=== PATIENT | female | born 1980 | race Asian ===

== ENCOUNTER 2021-03-24 09:49 | Outpatient (REF) | payer OTHER, SELFPAY ==
[2021-03-24 10:15] LABS: MANUAL DIFF FLAG NO
[2021-03-24 10:21] LABS: Basophils Percent Auto 0.6 % (0-2); Eosinophils Absolute Auto 0.1 X10*3/uL (0.0-0.4); Eosinophils Percent Auto 1.2 % (0-4); Hematocrit 37.4 % (37.0-47.0); Imm Gran Abs Auto 0.01 X10*3/uL (0.00-0.03); Imm Gran Pct Auto 0.2 % (0.0-0.4); Lymphocytes Absolute Auto 1.7 X10*3/uL (1.2-4.9); Lymphocytes Percent Auto 33.8 % (20-40); Mean Corpuscular HGB Conc 32.1 g/dl (31.0-35.0); Mean Corpuscular Hemoglobin 26.2 pg (27.0-33.0); Mean Corpuscular Volume 81.7 fL (80.0-98.0); Mean Platelet Volume 9.7 fL (9.4-12.3); Monocytes Absolute Auto 0.4 X10*3/uL (0.1-1.2); Monocytes Percent Auto 8.1 % (2-11); Neutrophils Absolute Auto 2.9 x10*3/uL (2.0-8.3); Neutrophils Percent Auto 56.1 % (45-73); Platelet Count 241 X10*3/uL (160-400); Red Blood Count 4.58 X10*6/uL (4.20-5.50); Red Cell Distribution Width 13.4 % (11.0-16.0); White Blood Count 5.1 X10*3/uL (4.8-10.8)
[2021-03-24 10:50] LABS: Alanine Aminotransferase 14 U/L (0-31); Albumin Level 3.6 g/dL (3.5-5.0); Alkaline Phosphatase 44 U/L (39-117); Anion Gap 10 (12-20); Aspartate Amino Transferase 17 U/L (5-31); Bilirubin Total 0.5 mg/dL (0.0-1.0); Blood Urea Nitrogen 7 mg/dL (9-16); C Reactive Protein 0.06 mg/dL (< or = 0.50); Calcium 8.8 mg/dL (8.4-10.2); Carbon Dioxide 24 mmol/L (22-29); Chloride 109 mmol/L (96-108); Cholesterol 174 mg/dL; Estimated Glomerular Filt Rate > 60; Glucose Fasting 81 mg/dL (60-99); HDL Cholesterol 51 mg/dL; LDL Cholesterol Calculated 107 mg/dl; Potassium 3.9 mmol/L (3.3-5.1); Sodium 139 mmol/L (135-145); Total Protein 6.6 g/dL (6.5-8.0); Triglycerides 80 mg/dL
[2021-03-24 11:12] LABS: TSH reflex Free T4 0.63 uIU/mL (0.32-4.0); Vitamin D 25-OH Total 15.7 ng/mL (>30)
[2021-03-24 12:04] LABS: Erythrocyte Sedimentation Rate 7 MM/HR (0-20)
[2021-03-24 14:34] LABS: Appearance Urine CLEAR; Color Urine YELLOW; Glucose Urine UA 100 MG/DL (NEG); Leukocyte Esterase Urine NEG (NEG); Nitrite Urine NEG (NEG); PH 6.5 (5.0-8.0); Urine Blood 2+ (NEG); Urine Ketones NEG (NEG); Urine Protein TRACE MG/DL (NEG-TRACE)
[2021-03-24 14:53] LABS: Bacteria Urine 1+ /LPF; Mucus Urine 1+ /LPF; Squamous Epithelial Cell Urine 2+ /LPF
[2021-03-25 10:41] LABS: PTT (LAC) Screen 29 sec (< OR = 40)
[2021-03-28 22:02] LABS: Anti Nuclear Antibody Screen NEGATIVE (NEGATIVE)
[2021-03-29 15:36] LABS: Anti DNA DS Antibody <1 IU/mL
== END 2021-03-24 09:50 | disposition home or self-care (01) ==
LOC: HO.10HDL 09:49
PROVIDERS: Visit Provider Nurse Practitioner Family
DX: E55.9 Vitamin D deficiency, unspecified (principal); E78.00 Pure hypercholesterolemia, unspecified; I10 Essential (primary) hypertension; F32.2 Major depressive disorder, single episode, severe without psychotic features; R21 Rash and other nonspecific skin eruption; F41.9 Anxiety disorder, unspecified; Z83.3 Family history of diabetes mellitus; Z76.89 Persons encountering health services in other specified circumstances
CPT/HCPCS: 36415; 80053; 80061; 81001; 82306; 84443; 85025; 85597; 85613; 85652; 85730; 86038; 86039; 86140; 86225

== ENCOUNTER 2021-04-07 11:06 | Outpatient (REF) | payer OTHER, SELFPAY ==
[2021-04-07 12:13] LABS: Estimated Average Glucose 103 mg/dL; Hemoglobin A1c % 5.2 %
[2021-04-07 12:18] LABS: Appearance Urine HAZY; Color Urine YELLOW; Glucose Urine UA NEG (NEG); Leukocyte Esterase Urine 1+ (NEG); Nitrite Urine NEG (NEG); Specific Gravity - Urine 1.025 (1.005-1.025); Urine Blood TRACE (NEG); Urine Ketones NEG (NEG); Urine Protein NEG (NEG-TRACE)
[2021-04-07 12:21] LABS: Glucose Fasting 116 mg/dL (60-99)
[2021-04-07 12:31] LABS: Bacteria Urine 2+ /LPF; RBC Urine 0-2 /HPF (0); Squamous Epithelial Cell Urine 4+ /LPF
[2021-04-07 12:49] LABS: Vitamin D 25-OH Total 20.2 ng/mL (>30)
== END 2021-04-07 11:07 | disposition home or self-care (01) ==
LOC: HO.LAB 11:06
PROVIDERS: PCP Nurse Practitioner Family; Visit Provider Nurse Practitioner Family
DX: Z13.1 Encounter for screening for diabetes mellitus (principal); R81 Glycosuria; E55.9 Vitamin D deficiency, unspecified; F32.2 Major depressive disorder, single episode, severe without psychotic features; F41.9 Anxiety disorder, unspecified; Z76.89 Persons encountering health services in other specified circumstances; Z83.3 Family history of diabetes mellitus
CPT/HCPCS: 36415; 81001; 82306; 82947; 83036

== ENCOUNTER 2021-05-01 19:52 | Emergency (ER) | payer OTHER, SELFPAY ==
[2021-05-01 19:54] VITALS: BP 115/62; PULSE 91; RESP 16; TEMP 36.8; O2SAT 97; BMI 24.4
--- NOTE | 2021-05-01 20:23 | ED_ITS ---
HPI - Allergic Reaction General Chief complaint: Allergic Reaction Stated complaint: Hives Time Seen by Provider: 05/01/21 20:21 History of Present Illness HPI narrative: Patient complains of hives coming and going for several days, no difficulty breathing no throat swelling no difficulty swallowing, the rash is itchy no other complaint Related Data Previous Rx's Medication Instructions Recorded hydroxyzine HCl 25 mg tablet 25 mg PO Q6-8H PRN #30 tab 03/19/21 cholecalciferol (vitamin D3) 1,250 1,250 mcg PO QWEEK #12 cap 04/05/21 mcg (50,000 unit) capsule epinephrine 0.3 mg/0.3 mL 0.3 mg (0.3 mL) IM ONCE PRN #2 ea 04/28/21 injection, auto-injector (EpiPen 2-Duy) cetirizine 10 mg capsule 10 mg PO DAILY PRN #14 cap 05/01/21 diphenhydramine HCl 25 mg capsule 50 mg PO BEDTIME PRN #20 cap 05/01/21 (Benadryl) prednisone 20 mg tablet 40 mg PO DAILY 3 Days #6 tab 05/01/21 Allergies Allergy/AdvReac Type Severity Reaction Status Date / Time latex Allergy Mild Anaphylaxis Verified 05/01/21 20:01 Sulfa (Sulfonamide Allergy Mild Hives Verified 05/01/21 20:01 Antibiotics) Review of Systems Verdana 4l Review of Systems: Verdana 4d Verdana 4d Positive for hives Negatives are no fever no chills no dizziness no weakness no fainting no feeling faint no headache no neck pain no difficulty breathing or swallowing no throat swelling no chest pain no shortness of breath no joint swellingswelling Yes all other systems are reviewed and are negative PMFSH Past Medical History Source: nursing notes reviewed Social History Social History Housing: Apartment Patient Tobacco Use Status: Never used Tobacco Tobacco use type: Cigarette e-Cigarette/Vaping Use: Never Used Second Hand Smoke Exposure: No Advance Directives: No Advance Directives Information Provided: Yes Patient : No service: No Current occupational status: unemployed Physical Exam Verdana 4l Vital Signs: Verdana 4d Verdana 4d Vital Signs: Verdana 4d Verdana 4Bd Last Vital Signs Verdana 4d Crop [place] New 4d Crop [place] New 4d Temp 98.2 F 05/01/21 19:54 Crop [place] New 4d Pulse 91 05/01/21 19:54 Crop [place] New 4d Resp 16 05/01/21 19:54 BP 115/62 05/01/21 19:54 Pulse Ox 97 05/01/21 19:54 BMI result Body Mass Index 24.4 General appearance no acute distress comfortable cooperative The eyes no redness or discharge The nose not congested The pharynx no redness swelling or exudate, mucous membranes are moist, voice is normal no impairment of breathing or swallowing The neck is supple Chest clear to auscultation with full symmetric equal breath sounds Heart no murmur Extremities full range of motion x4 The skin there is diffuse mild urticarial rash Discharge Plan Discharge Clinical Impression: Urticaria Patient Disposition: Home, Self-Care Additional Instructions: The rash is most likely from a sensitivity to something that we do not know We are doing a short course of steroids, and antihistamine which usually is very helpful Follow with her doctor as needed Return to the ER any time any worse condition or any concerns Prescriptions: New cetirizine 10 mg capsule 10 mg PO DAILY PRN (Reason: allergy symptoms) Qty: 14 0RF diphenhydramine HCl [Benadryl] 25 mg capsule 50 mg PO BEDTIME PRN (Reason: Hives) Qty: 20 0RF prednisone 20 mg tablet 40 mg PO DAILY 3 Days Qty: 6 0RF No Action epinephrine [EpiPen 2-Duy] 0.3 mg/0.3 mL auto-injector 0.3 mg IM ONCE PRN (Reason: anaphylaxis) Qty: 2 0RF hydroxyzine HCl 25 mg tablet 25 mg PO Q6-8H PRN (Reason: itching) Qty: 30 0RF cholecalciferol (vitamin D3) 1,250 mcg (50,000 unit) capsule 1,250 mcg PO QWEEK Qty: 12 0RF
[2021-05-01] MEDS: Loratadine 10 MG TABLET PO (20:43)
[2021-05-01] MEDS: predniSONE 20 MG TABLET 60 MG PO (20:44)
== END 2021-05-01 20:49 | disposition home or self-care (01) ==
PROVIDERS: Emergency Provider Internal Medicine
DX: L50.9 Urticaria, unspecified (principal)
CPT/HCPCS: 99283

== ENCOUNTER 2021-05-17 08:25 | Outpatient (REF) | payer OTHER, SELFPAY ==
[2021-05-17 15:45] LABS: CT PCR NOT DETECTED (Not Detect.); NG PCR NOT DETECTED (Not Detect.)
[2021-05-18 11:01] LABS: BV Int Neg Control Negative (Negative); BV Int Pos Control Positive (Positive)
[2021-05-19 20:51] LABS: HPV mRNA E6/E7 rflx Not Detected (Not Detected)
== END 2021-05-17 08:26 | disposition home or self-care (01) ==
LOC: HO.LAB 08:25
PROVIDERS: Visit Provider Advanced Practice Midwife
DX: Z01.419 Encounter for gynecological examination (general) (routine) without abnormal findings (principal); Z11.51 Encounter for screening for human papillomavirus (HPV); Z20.2 Contact with and (suspected) exposure to infections with a predominantly sexual mode of transmission; R73.9 Hyperglycemia, unspecified; Z87.42 Personal history of other diseases of the female genital tract
CPT/HCPCS: 87480; 87491; 87510; 87591; 87624; 87660; 88142; 97802

== ENCOUNTER 2021-06-03 06:45 | Outpatient (REF) | payer OTHER, SELFPAY ==
[2021-06-03 07:04] LABS: MANUAL DIFF FLAG NO
[2021-06-03 07:27] LABS: Basophils Percent Auto 0.7 % (0-2); Eosinophils Absolute Auto 0.1 X10*3/uL (0.0-0.4); Eosinophils Percent Auto 1.7 % (0-4); Hematocrit 38.9 % (37.0-47.0); Hemoglobin 12.6 g/dl (12.0-16.0); Imm Gran Abs Auto 0.02 X10*3/uL (0.00-0.03); Imm Gran Pct Auto 0.4 % (0.0-0.4); Lymphocytes Absolute Auto 1.8 X10*3/uL (1.2-4.9); Lymphocytes Percent Auto 39.5 % (20-40); Mean Corpuscular HGB Conc 32.4 g/dl (31.0-35.0); Mean Corpuscular Hemoglobin 26.1 pg (27.0-33.0); Mean Corpuscular Volume 80.7 fL (80.0-98.0); Mean Platelet Volume 10.1 fL (9.4-12.3); Monocytes Absolute Auto 0.4 X10*3/uL (0.1-1.2); Monocytes Percent Auto 8.9 % (2-11); Neutrophils Absolute Auto 2.3 x10*3/uL (2.0-8.3); Neutrophils Percent Auto 48.8 % (45-73); Platelet Count 305 X10*3/uL (160-400); Red Blood Count 4.82 X10*6/uL (4.20-5.50); Red Cell Distribution Width 13.5 % (11.0-16.0); White Blood Count 4.6 X10*3/uL (4.8-10.8)
[2021-06-03 07:51] LABS: Anion Gap 11 (12-20); Blood Urea Nitrogen 11 mg/dL (9-16); C Reactive Protein 0.04 mg/dL (< or = 0.50); Calcium 8.9 mg/dL (8.4-10.2); Carbon Dioxide 26 mmol/L (22-29); Chloride 106 mmol/L (96-108); Estimated Glomerular Filt Rate > 60; Glucose Random 99 mg/dL (60-115); Potassium 4.2 mmol/L (3.3-5.1); Sodium 139 mmol/L (135-145)
[2021-06-03 08:13] LABS: ~Hepatitis C Antibody Nonreactive (Nonreactive)
[2021-06-03 08:17] LABS: Appearance Urine CLEAR; Color Urine YELLOW; Erythrocyte Sedimentation Rate 2 MM/HR (0-20); Glucose Urine UA NEG (NEG); Leukocyte Esterase Urine NEG (NEG); Nitrite Urine NEG (NEG); Specific Gravity - Urine >= 1.030 (1.005-1.025); Urine Blood NEG (NEG); Urine Ketones NEG (NEG); Urine Protein NEG (NEG-TRACE)
[2021-06-03 08:23] LABS: HBsAGNum1 0.27 S/CO (0.00-0.99); HIV AB/AG Nonreactive (Nonreactive); HIV Num 1 0.05 S/CO (0.00-0.99); Hepatitis B Surface Antigen Negative (Negative)
[2021-06-03 08:35] LABS: Bacteria Urine TRACE /LPF; Mucus Urine 1+ /LPF; RBC Urine 0 /HPF (0); Squamous Epithelial Cell Urine 2+ /LPF
[2021-06-04 08:35] LABS: Syphilis Screen Nonreactive (Nonreactive)
[2021-06-04 19:22] LABS: Complement C3 104 mg/dL (83-193)
[2021-06-04 22:47] LABS: Anti Nuclear Antibody Screen POSITIVE (NEGATIVE)
[2021-06-05 07:17] LABS: Anti DNA DS Antibody <1 IU/mL
== END 2021-06-03 06:46 | disposition home or self-care (01) ==
LOC: HO.LAB 06:45
PROVIDERS: Absent Provider Nurse Practitioner Family; PCP Nurse Practitioner Family; Visit Provider Advanced Practice Midwife
DX: Z01.411 Encounter for gynecological examination (general) (routine) with abnormal findings (principal); Z11.4 Encounter for screening for human immunodeficiency virus [HIV]; R21 Rash and other nonspecific skin eruption; I10 Essential (primary) hypertension; L50.9 Urticaria, unspecified; Z01.419 Encounter for gynecological examination (general) (routine) without abnormal findings; Z20.2 Contact with and (suspected) exposure to infections with a predominantly sexual mode of transmission; Z87.42 Personal history of other diseases of the female genital tract
CPT/HCPCS: 36415; 80048; 81001; 85025; 85652; 86038; 86039; 86140; 86160; 86225; 86780; 86803; 87340; 87389

== ENCOUNTER → 2021-08-16 15:30 | Outpatient (REF) | payer OTHER, SELFPAY ==
--- NOTE | 2021-08-16 15:34 | ECG_ITS ---
Test Reason : CHEST PAIN Blood Pressure : / mmHG Vent. Rate : 052 BPM Atrial Rate : 052 BPM P-R Int : 168 ms QRS Dur : 070 ms QT Int : 438 ms P-R-T Axes : 037 074 042 degrees QTc Int : 407 ms Sinus bradycardia Otherwise normal ECG No previous ECGs available Referred By: Shahid Irvin Electronically Signed By:TONO PLASCENCIA
== END ==
LOC: HO.CARD 15:30
PROVIDERS: PCP Nurse Practitioner Family; Visit Provider Nurse Practitioner Family
DX: R07.89 Other chest pain (principal)
CPT/HCPCS: 93005

== ENCOUNTER 2021-11-03 09:21 | Outpatient (REF) | payer OTHER, SELFPAY ==
[2021-11-03 11:24] LABS: Folate 13.8 ng/mL (> or = 4.0); Vitamin B12 376 pg/mL (200-900)
[2021-11-03 14:12] LABS: Alanine Aminotransferase 18 U/L (0-31); Albumin Level 4.2 g/dL (3.5-5.0); Alkaline Phosphatase 49 U/L (39-117); Anion Gap 13 (12-20); Aspartate Amino Transferase 20 U/L (5-31); Bilirubin Total 0.4 mg/dL (0.0-1.0); Blood Urea Nitrogen 9 mg/dL (9-16); Carbon Dioxide 26 mmol/L (22-29); Chloride 105 mmol/L (96-108); Estimated Glomerular Filt Rate > 60; Glucose Random 86 mg/dL (60-115); Sodium 140 mmol/L (135-145); Total Protein 7.3 g/dL (6.5-8.0)
[2021-11-03 14:13] LABS: TSH reflex Free T4 0.51 uIU/mL (0.32-4.0); Vitamin D 25-OH Total 72.3 ng/mL (>30)
== END 2021-11-03 09:22 | disposition home or self-care (01) ==
LOC: HO.LAB 09:21
PROVIDERS: PCP Nurse Practitioner Family; Visit Provider Nurse Practitioner Family
DX: F41.9 Anxiety disorder, unspecified (principal); E55.9 Vitamin D deficiency, unspecified
CPT/HCPCS: 36415; 80053; 82306; 82607; 82746; 84443

== ENCOUNTER 2021-12-08 11:52 | Outpatient (REF) | payer OTHER, SELFPAY ==
[2021-12-08 13:42] LABS: MANUAL DIFF FLAG NO
[2021-12-08 13:52] LABS: Basophils Percent Auto 0.7 % (0-2); Eosinophils Absolute Auto 0.1 X10*3/uL (0.0-0.4); Eosinophils Percent Auto 1.3 % (0-4); Hemoglobin 12.8 g/dl (12.0-16.0); Imm Gran Abs Auto 0.02 X10*3/uL (0.00-0.03); Imm Gran Pct Auto 0.3 % (0.0-0.4); Lymphocytes Absolute Auto 1.8 X10*3/uL (1.2-4.9); Lymphocytes Percent Auto 28.9 % (20-40); Mean Corpuscular HGB Conc 31.2 g/dl (31.0-35.0); Mean Corpuscular Hemoglobin 25.2 pg (27.0-33.0); Mean Corpuscular Volume 80.7 fL (80.0-98.0); Mean Platelet Volume 11.1 fL (9.4-12.3); Monocytes Absolute Auto 0.5 X10*3/uL (0.1-1.2); Monocytes Percent Auto 8.6 % (2-11); Neutrophils Absolute Auto 3.7 x10*3/uL (2.0-8.3); Neutrophils Percent Auto 60.2 % (45-73); Platelet Count 267 X10*3/uL (160-400); Red Blood Count 5.08 X10*6/uL (4.20-5.50); Red Cell Distribution Width 13.5 % (11.0-16.0); White Blood Count 6.1 X10*3/uL (4.8-10.8)
[2021-12-08 14:16] LABS: Alanine Aminotransferase 13 U/L (0-31); Albumin Level 4.2 g/dL (3.5-5.0); Alkaline Phosphatase 56 U/L (39-117); Anion Gap 14 (12-20); Aspartate Amino Transferase 19 U/L (5-31); Bilirubin Total 0.2 mg/dL (0.0-1.0); Blood Urea Nitrogen 7 mg/dL (9-16); C Reactive Protein 0.06 mg/dL (< or = 0.50); Calcium 9.2 mg/dL (8.4-10.2); Carbon Dioxide 27 mmol/L (22-29); Chloride 103 mmol/L (96-108); Estimated Glomerular Filt Rate > 60; Glucose Random 79 mg/dL (60-115); Potassium 3.9 mmol/L (3.3-5.1); Sodium 140 mmol/L (135-145); Total Protein 7.6 g/dL (6.5-8.0)
[2021-12-08 14:18] LABS: Creatinine Urine 21.06 mg/dL; Total Protein Urine Random < 7 mg/dL (<12)
[2021-12-08 14:35] LABS: Erythrocyte Sedimentation Rate 5 MM/HR (0-20)
[2021-12-10 04:51] LABS: Anti DNA DS Antibody <1 IU/mL; SM/Ribonucleoprotein Ab <1.0 NEG AI (<1.0 NEG); Smith Protein <1.0 NEG AI (<1.0 NEG)
== END 2021-12-08 11:53 | disposition home or self-care (01) ==
LOC: HO.10HDL 11:52
PROVIDERS: Visit Provider Internal Medicine Rheumatology
DX: R21 Rash and other nonspecific skin eruption (principal); R76.8 Other specified abnormal immunological findings in serum; M25.521 Pain in right elbow; G89.29 Other chronic pain; M25.551 Pain in right hip
CPT/HCPCS: 36415; 80053; 84156; 85025; 85652; 86140; 86225; 86235; 99202

== ENCOUNTER 2021-12-16 13:15 | Outpatient (REF) | payer OTHER, SELFPAY ==
--- NOTE | ~2021-12-16 | XR_ITS ---
EXAMINATION: XR HIP, RIGHT. XR ELBOW, RIGHT. CLINICAL INFORMATION: Right elbow and hip pain COMPARISON: None TECHNIQUE: 3 views of the right elbow. AP and frog-lateral views of the right hip. FINDINGS: Right elbow: Normal alignment. No fracture. No joint effusion. No degenerative findings. Right hip: Normal alignment. No fracture. Mild degenerative spurring along the superior acetabular rim. No significant joint space narrowing. XR/XR hip RT min 2V IMPRESSION: Right elbow: Normal. Right hip: Minimal osteoarthritis.
--- NOTE | ~2021-12-16 | XR_ITS ---
EXAMINATION: XR HIP, RIGHT. XR ELBOW, RIGHT. CLINICAL INFORMATION: Right elbow and hip pain COMPARISON: None TECHNIQUE: 3 views of the right elbow. AP and frog-lateral views of the right hip. FINDINGS: Right elbow: Normal alignment. No fracture. No joint effusion. No degenerative findings. Right hip: Normal alignment. No fracture. Mild degenerative spurring along the superior acetabular rim. No significant joint space narrowing. XR/XR elbow RT min 3V IMPRESSION: Right elbow: Normal. Right hip: Minimal osteoarthritis.
== END 2021-12-16 13:16 | disposition home or self-care (01) ==
LOC: HO.XRAY 13:15
PROVIDERS: Visit Provider Internal Medicine Rheumatology
DX: M25.521 Pain in right elbow (principal); M25.551 Pain in right hip; G89.29 Other chronic pain
CPT/HCPCS: 73080; 73502

== ENCOUNTER 2022-01-12 10:12 | Emergency (ER) | payer OTHER, SELFPAY ==
[2022-01-12 10:50] VITALS: BP 104/56; PULSE 68; RESP 16; TEMP 36.1; O2SAT 99; BMI 24.4
--- NOTE | 2022-01-12 10:56 | ED.EAR ---
HPI - Ear Problem General Chief complaint: Ear Problems Stated complaint: cant hear out of L ear Time Seen by Provider: 01/12/22 10:55 Source: patient Mode of arrival: ambulatory Limitations: no limitations History of Present Illness HPI Narrative: 41 yo female with history of bipolar disorder, anxiety, depression, polyarthralgia history of cerumen impaction in the past who presents to the ER for evaluation of left-sided hearing loss, worsening over the last 2 months. She has had cerumen impaction that required irrigation and curette before. She has an appointment with ear nose and throat doctor but not until April. She states she cannot hear anything on the left ear. She denies any tinnitus or drainage. She is starting to have a headache on the left side due to pressure in the ear. She denies any hearing loss or drainage from the right ear. MD Complaint: ear pain and decreased hearing Location: left ear Duration: constant Severity: moderate Relieving factors: nothing Exacerbating factors: nothing Discharge from ear: no Associated symptoms ear: decreased hearing and headache Treatment prior to arrival: none Related Data Home Medications Medication Instructions Recorded Confirmed triamcinolone acetonide 0.1 % 1 appl topical DAILY 05/17/21 12/23/21 lotion ergocalciferol (vitamin D2) 1,250 1,250 mcg PO QWEEK 08/16/21 12/23/21 mcg (50,000 unit) capsule Previous Rx's Medication Instructions Recorded epinephrine 0.3 mg/0.3 mL 0.3 mg (0.3 mL) IM ONCE PRN 04/28/21 injection, auto-injector (EpiPen anaphylaxis #2 ea 2-Duy) metronidazole 0.75 % (37.5 mg/5 1 appful vaginal BEDTIME 5 days 05/18/21 gram) vaginal gel (Metrogel #70 grams Vaginal) escitalopram oxalate 5 mg tablet 5 mg PO DAILY #90 tabs 12/30/21 Allergies Allergy/AdvReac Type Severity Reaction Status Date / Time latex Allergy Mild Anaphylaxis Verified 12/23/21 14:54 Sulfa (Sulfonamide Allergy Mild Hives Verified 12/23/21 14:54 Antibiotics) Review of Systems Review of Systems: Constitutional: No Fever, No Chills ENT/Mouth: No sore throat, No Rhinorrhea, No Swallowing Difficulty, +Otalgia, +hearing loss Eyes: No Eye Pain, No Swelling, No Redness Cardiovascular: No Chest Pain, No SOB Respiratory: No Cough, No Sputum Gastrointestinal: No Nausea, No Vomiting Musculoskeletal: No joint pain, No Myalgias Skin: No Skin Lesions, No rash Neuro: No Dizziness, + Headache Heme/Lymph: No Lymphadenopathy PMFSH Past Medical History Medical History Depression Vitamin A deficiency Social History Social History Housing: Apartment Patient Tobacco Use Status: Never used Tobacco Tobacco use type: Cigarette e-Cigarette/Vaping Use: Never Used Second Hand Smoke Exposure: No Advance Directives: No Advance Directives Information Provided: No service: No Current occupational status: unemployed Cognitive needs: No Hearing needs: No Vision needs: Yes Physical Exam Vital Signs: Vital Signs: Last Vital Signs Temp 97 F 01/12/22 10:50 Pulse 68 01/12/22 10:50 Resp 16 01/12/22 10:50 BP 104/56 L 01/12/22 10:50 Pulse Ox 99 01/12/22 10:50 O2 Del Method 01/12/22 10:50 BMI result Body Mass Index 24.4 Appearance: Alert. Oriented X3. No acute distress. HEENT: normal external inspection. Bilateral external auditory canals are impacted with hard, dark cerumen. Positive hearing loss on the left side. No drainage. No mastoid tenderness bilaterally. CVS: Normal heart rate and rhythm. Pulses normal. Respiratory: No respiratory distress. Skin: Skin warm and dry. Normal skin color. Normal skin turgor. No rashes. Extremities: Normal inspection x4, normal range of motion. Neuro: Oriented X 3. No motor deficit. No sensory deficit. Course Course Course Narrative: 41-year-old female presents to the ER for evaluation of left-sided hearing loss and headache. Found to have bilateral cerumen impaction left greater than right. See procedure note. With Colace drops, irrigation and curette, cerumen was able to be successfully extracted. Tympanic membranes without infection after cerumen was cleared. She is stable for discharge. She has been wound ENT in a couple months. Stable for DC. Procedures Ear Wax Removal Both Ears: Cerumenolytic Used: Colace Results: Re-examined: cerumen removed completely TM Examination: TM(s) intact, normal appearance Ear Canal Exam: atraumatic Patient Tolerated Procedure: well and no complications Complications: no problems Technique: ear canal irrigated and ear canal curetted Discharge Plan Discharge Clinical Impression: Bilateral impacted cerumen Patient Disposition: Home, Self-Care Instructions: Carbamide Peroxide (Into the ear) Additional Instructions: Recommend Debrox drops in your ears, this could be found [id number]. Follow-up with your doctor as needed. Follow-up with the ear nose and throat doctor as scheduled in April. If you develop new or worsening symptoms call 911 or come back to the ER for further evaluation. Prescriptions: No Action epinephrine [EpiPen 2-Duy] 0.3 mg/0.3 mL auto-injector 0.3 mg IM ONCE PRN (Reason: anaphylaxis) Qty: 2 0RF metronidazole [Metrogel Vaginal] 0.75 % gel 1 appful vaginal BEDTIME 5 Days Qty: 70 0RF escitalopram oxalate 5 mg tablet 5 mg PO DAILY Qty: 90 0RF ergocalciferol (vitamin D2) 1,250 mcg (50,000 unit) capsule 1,250 mcg PO QWEEK triamcinolone acetonide 0.1 % lotion 1 appl topical DAILY Interventions: ED Discharge Assessment Last Done: 01/12/22 13:20
[2022-01-12] MEDS: Docusate Sodium 100 MG/10 ML LIQUID PO (11:17)
== END 2022-01-12 13:21 | disposition home or self-care (01) ==
PROVIDERS: Emergency Provider Emergency Medicine; PCP Nurse Practitioner Family
DX: H61.23 Impacted cerumen, bilateral (principal); R51.9 Headache, unspecified
CPT/HCPCS: 69209; 99283

== ENCOUNTER 2022-02-15 09:00 | Outpatient (RCR) | payer OTHER, SELFPAY ==
--- NOTE | 2022-01-21 10:12 | MHC.PT.EP ---
[facility] [place] Office [place] Office [place] Office [address] [phone] F: [phone] F: [phone] F: [phone] F: [phone] Physical Therapy Plan of Care Date of Evaluation: Date of Surgery: NA Diagnosis: R HIP ARTHRITIS Assessment: Pt IS 41 YO F REFERRED TO PT FROM [facility] WITH R HIP PAIN. FOUND TO HAVE MINIMAL ARTHRITIS ON XRAY. ALSO RECENTLY DIAGNOSED WITH LUPUS. PRESENTS TO PT WITH SLIGHT DECREASE IN END ROM/FLEXIBILITY IN HIP WITH GOOD OVERALL HIP STRENGTH. 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 OF NOTE, Pt C/O R UE ISSUES AND L FOOT/ANKLE INJURY WHILE SURFING. ED TO SPEAK WITH PCP RE THESE ISSUES HER REFERRAL AT THIS TIME IS ONLY FOR R HIP. SHOULD BENEFIT FROM SHORT TERM PT FOR STRETCH/STRENGTHEN HIPS/CORE AND ASSESS PELVIS Frequency and Duration: The patient will be seen 2X/WK X 4 WKS Short Term Goals: 1. I HEP WITH DC EX PLAN 2. INCREASED AWARENESS HIP CARE/POSTURE Long-Term Goals: 1. IMPROVED LEFI 2. DECREASED R HIP PAIN AT LEAST 50% WITH ADLS Treatment Plan: Modalities to reduce pain, spasms and effusion. Manual therapy to restore motion and function. Therapeutic exercise to improve strength and flexibility. Neuromuscular re-education for posture and balance. Therapeutic activities to return to functional activities of daily living. Electronically signed by: MERYL MEHTA PT Please sign and return to therapist. Thank you for your referral.
--- NOTE | 2022-03-05 09:23 | MHC.PT.DC ---
[facility] [place] Office [place] Office [place] Office [address] [phone] F: [phone] F: [phone] F: [phone] F: [phone] Physical Therapy Discharge Report Diagnosis: R HIP ARTHRITIS Date of Surgery: NA Date of Evaluation: 01/21/22 Date of Discharge: 03/05/22 Treatments to Date: 8 Cancellations to Date: No Shows to Date: Discharge Status: Achieved Goals Independent with HEP Discharge Summary: HAS MET PT GOALS, GOOD HEP. STARTING OT TOMORROW Electronically signed by: MERYL MEHTA PT Please sign and return to therapist. Thank you for your referral.
== END 2022-03-05 09:24 | disposition home or self-care (01) ==
LOC: HO.PT 09:00
PROVIDERS: Visit Provider Nurse Practitioner Family
DX: M25.551 Pain in right hip (principal)
CPT/HCPCS: 97110; 97161; 97530

== ENCOUNTER 2022-03-22 09:00 | Outpatient (RCR) | payer OTHER, SELFPAY ==
--- NOTE | 2022-02-23 09:42 | MHC.OT.EP ---
[address] [phone] Occupational Therapy Plan of Care Date of Evaluation: 02/23/22 Diagnosis: Right elbow pain Assessment: Leah is a 41 yo female with a long ho right lateral elbow pain with home, hobby and work tasks reaching and gripping , lifting Today she presents with mild lateral epicondylitis. 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 Thank you once again for your referral.
--- NOTE | 2022-04-08 11:37 | MHC.OT.DC ---
[address] [phone] F: [phone] Occupational Therapy Discharge Note Provider: Molly Kline Diagnosis: Right elbow pain Date of Surgery: Date of Evaluation: 02/23/22 Date of Discharge: Treatments to Date: 7 Cancellations to Date: No Shows to Date: Discharge Status: Achieved Goals Improved Function Independent with HEP Discharge Summary: Pt reports good improvement in elbow pain to low with avoiding heavy lifting. Function improved with a Quick DASH score improved to a 47. Limiting lifting with right for right elbow protection Pt indep with HEP Electronically Signed By: Erin Fitzgerald OT CHT CLT Reviewed/agree with student documentation: N/A Therapist: Please Sign and return to therapist, thank you for your referral.
== END 2022-04-08 11:38 | disposition home or self-care (01) ==
LOC: HO.OT 09:00
PROVIDERS: PCP Nurse Practitioner Family; Visit Provider Nurse Practitioner Family
DX: M25.521 Pain in right elbow (principal)
CPT/HCPCS: 29105; 97033; 97110; 97166; 97535; 97760

== ENCOUNTER 2022-06-28 11:32 | Outpatient (REF) | payer OTHER, SELFPAY ==
[2022-06-28 17:41] LABS: CT PCR NOT DETECTED (Not Detect.); NG PCR NOT DETECTED (Not Detect.)
[2022-06-29 09:28] LABS: BV Int Neg Control Negative (Negative); BV Int Pos Control Positive (Positive)
[2022-07-01 09:28] LABS: HPV mRNA E6/E7 rflx Not Detected (Not Detected)
== END 2022-06-28 11:33 | disposition home or self-care (01) ==
LOC: HO.LNP 11:32
PROVIDERS: PCP Nurse Practitioner Family; Visit Provider Advanced Practice Midwife
DX: Z01.419 Encounter for gynecological examination (general) (routine) without abnormal findings (principal); R10.2 Pelvic and perineal pain; R21 Rash and other nonspecific skin eruption; Z87.42 Personal history of other diseases of the female genital tract; Z79.899 Other long term (current) drug therapy
CPT/HCPCS: 0353U; 87480; 87510; 87624; 87660; 88142

== ENCOUNTER 2022-08-05 14:01 | Outpatient (REF) | payer OTHER, SELFPAY ==
--- NOTE | ~2022-08-05 | US_ITS ---
EXAMINATION: US PELVIS CLINICAL INFORMATION: 41-year-old, LMP approximately 2 weeks ago. Pelvic pain and heavy periods. COMPARISON: None available. TECHNIQUE: Ultrasound of the pelvis is performed using both transabdominal and transvaginal transducers along with Doppler. Transvaginal imaging is performed due to inadequate visualization transabdominally. FINDINGS: Uterus: The uterus is anteverted and measures 8.7 x 3.0 x 5.4 cm. The double wall endometrial thickness is 1.1 mm. Within the endometrium are 2 echogenic lesions with vascularity, measuring 0.6 x 0.4 x 0.6 cm and 0.5 x 0.5 x 0.8 cm which may reflect endometrial polyps.. The uterus is smooth in contour and has normal myometrial echogenicity. Multiple intramural uterine fibroids are noted measuring up to 1.5 cm. Adnexa: Both ovaries are visualized. There is normal color flow to the adnexa. There is no ovarian torsion. There is no pelvic ascites or fluid collection. Right ovary measures 3.0 x 1.9 x 2.9 cm. Left ovary measures 2.6 x 1.6 x 1.4 cm. US/US pelvic and transvaginal IMPRESSION: Within the endometrium are 2 echogenic lesions with vascularity, measuring 0.6 x 0.4 x 0.6 cm and 0.5 x 0.5 x 0.8 cm which may reflect endometrial polyps. Recommend further evaluation with sonohysterogram.
== END 2022-08-05 14:02 | disposition home or self-care (01) ==
LOC: HO.US 14:01
PROVIDERS: Visit Provider Advanced Practice Midwife
DX: R10.2 Pelvic and perineal pain (principal)
CPT/HCPCS: 76830; 76856

== ENCOUNTER 2022-08-12 09:30 | Outpatient (REF) | payer OTHER, SELFPAY ==
--- NOTE | ~2022-08-12 | MM_ITS ---
EXAMINATION: MM SCREENING DIGITAL BREAST TOMOSYNTHESIS, BILATERAL CLINICAL INFORMATION: Screening. Asymptomatic. The lifetime risk of breast cancer based on the Tyrer-Cuzick Model is 16.8%. COMPARISON: Mammography: October 16, 2019 and December 19, 2018 TECHNIQUE: Digital breast tomosynthesis is performed in both the craniocaudal and mediolateral oblique views along with computer-aided detection (CAD). Synthesized 2D images are generated from the tomosynthesis. FINDINGS: The breasts are extremely dense, which lowers the sensitivity of mammography (ACR BI-RADS breast composition Category d). There are no significant masses, abnormal calcifications, or other abnormalities. MM/MM tomosynthesis screening BI IMPRESSION: No significant changes from prior exam. ASSESSMENT: BI-RADS 1: Negative RECOMMENDATION: Routine annual mammography screening. This patient's information was entered into a reminder system with a target due date for their next mammogram.
== END 2022-08-12 09:31 | disposition home or self-care (01) ==
LOC: HO.MAMMO 09:30
PROVIDERS: PCP Physician Assistant; Visit Provider Advanced Practice Midwife
DX: Z12.31 Encounter for screening mammogram for malignant neoplasm of breast (principal)
CPT/HCPCS: 77063; 77067

== ENCOUNTER 2022-08-23 11:16 | Outpatient (REF) | payer OTHER, SELFPAY ==
[2022-08-23 13:44] LABS: MANUAL DIFF FLAG NO
[2022-08-23 13:57] LABS: Basophils Percent Auto 0.6 % (0-2); Eosinophils Absolute Auto 0.1 X10*3/uL (0.0-0.4); Eosinophils Percent Auto 1.4 % (0-4); Hematocrit 36.1 % (37.0-47.0); Hemoglobin 11.6 g/dl (12.0-16.0); Imm Gran Abs Auto 0.02 X10*3/uL (0.00-0.03); Imm Gran Pct Auto 0.4 % (0.0-0.4); Lymphocytes Absolute Auto 1.4 X10*3/uL (1.2-4.9); Lymphocytes Percent Auto 26.5 % (20-40); Mean Corpuscular HGB Conc 32.1 g/dl (31.0-35.0); Mean Corpuscular Hemoglobin 25.9 pg (27.0-33.0); Mean Corpuscular Volume 80.6 fL (80.0-98.0); Mean Platelet Volume 10.8 fL (9.4-12.3); Monocytes Absolute Auto 0.5 X10*3/uL (0.1-1.2); Monocytes Percent Auto 9.6 % (2-11); Neutrophils Absolute Auto 3.1 x10*3/uL (2.0-8.3); Neutrophils Percent Auto 61.5 % (45-73); Platelet Count 273 X10*3/uL (160-400); Red Blood Count 4.48 X10*6/uL (4.20-5.50); Red Cell Distribution Width 13.8 % (11.0-16.0); White Blood Count 5.1 X10*3/uL (4.8-10.8)
[2022-08-23 14:07] LABS: Alanine Aminotransferase 12 U/L (0-31); Albumin Level 3.7 g/dL (3.5-5.0); Alkaline Phosphatase 46 U/L (39-117); Anion Gap 11 (12-20); Aspartate Amino Transferase 16 U/L (5-31); Bilirubin Total 0.6 mg/dL (0.0-1.0); Blood Urea Nitrogen 10 mg/dL (9-16); Calcium 8.4 mg/dL (8.4-10.2); Carbon Dioxide 25 mmol/L (22-29); Chloride 107 mmol/L (96-108); Cholesterol 195 mg/dL; Estimated Glomerular Filt Rate > 60; Glucose Fasting 80 mg/dL (60-99); HDL Cholesterol 53 mg/dL; LDL Cholesterol Calculated 117 mg/dl; Potassium 3.7 mmol/L (3.3-5.1); Sodium 139 mmol/L (135-145); Total Protein 6.5 g/dL (6.5-8.0); Triglycerides 129 mg/dL
[2022-08-23 14:39] LABS: Folate 9.3 ng/mL (> or = 4.0); TSH reflex Free T4 1.47 uIU/mL (0.32-4.0); Vitamin B12 316 pg/mL (200-900); Vitamin D 25-OH Total 22.6 ng/mL (>30)
== END 2022-08-23 11:17 | disposition home or self-care (01) ==
LOC: HO.10HDL 11:16
PROVIDERS: Visit Provider Nurse Practitioner Family
DX: Z00.00 Encounter for general adult medical examination without abnormal findings (principal); N84.0 Polyp of corpus uteri; D25.9 Leiomyoma of uterus, unspecified
CPT/HCPCS: 36415; 80053; 80061; 82306; 82607; 82746; 84443; 85025; 99212

== ENCOUNTER 2022-10-03 08:00 | Outpatient (RCR) | payer OTHER, SELFPAY ==
--- NOTE | 2022-08-30 10:56 | MHC.PT.EP ---
[facility] [place] Office [place] Office [place] Office [address] [phone] F: [phone] F: [phone] F: [phone] F: [phone] Physical Therapy Plan of Care Date of Evaluation: Date of Surgery: Diagnosis: PAIN IN LEFT ANKLE AND JOINTS OF LEFT FOOT Assessment: 41 YO FEMALE REF TO PT FOR LEFT ANKLE (ANTEROLAT TALOFIB LIG REGION)PAIN SINCE A 12/2022 SURFING INJURY AND SHE NOTES MORE RECENT ONSET OF MEDIAL LEFT KNEE SORENESS- SHE HAS DECR AROM IN THELMA ANKLES AND LEFT PROX LE. SHE HAS DECR CHRISTINA TO PROLONGED STANDING AND WALKING- THE Pt FEELS SHE IS UNABLETO PERFROM SPORTS OR DANCE WITH HER CURRENT LEFT DISTAL LE SXS AND WOULD LIKE TO LEARN TECHN/ HEP TO SELF- MANAGE. SHE HAS MILD PRONATION GENU VALGUS TENDENCIES. WITH SOME LUMBOPELVIC/ LEFT LE STRENGTH DEFICITS. THE Pt WOULD BENEFIT FROM PT TO ADDRESS THE ABOVE , DEV A HEP-> ED RE THER EXER TO ENHANCE SELF-MGMT OF HER SXS. Frequency and Duration: The patient will be seen 2 x WK x 4 WKS Short Term Goals: *Pt'S LEFT ANKLE PAIN DECR TO 2-06/10 *Pt INCREASE LEFT ANKLE AND HIP ROM *INCR FLEXIB IN PSOAS/ CALF MM TO IMPROVE EFFICIENCY OF GAIT ON LEVEL AND STAIRS Fdc Goals: Pt INDEP W HEP PROGRESSION AND SELF-SX MGMT STRATEGIES IN 10 WKS Pt RESUME REG ADLs EVIDENT W IMPROVED LEFI SCORE BY 8-10 POINTS (AT EVAL ) IN 10 WKS Pt INCR LUMBOPELVIC STAB AND LEFT LE STRENGTH BY 1 GRADE Treatment Plan: Modalities to reduce pain, spasms and effusion. Manual therapy to restore motion and function. Therapeutic exercise to improve strength and flexibility. Neuromuscular re-education for posture and balance. Therapeutic activities to return to functional activities of daily living. Electronically signed by: BRII BLACK,PT Please sign and return to therapist. Thank you for your referral.
--- NOTE | 2022-10-03 09:23 | MHC.PT.DC ---
[facility] [place] Office [place] Office [place] Office [address] [phone] F: [phone] F: [phone] F: [phone] F: [phone] Physical Therapy Discharge Report Diagnosis: PAIN IN LEFT ANKLE AND JOINTS OF LEFT FOOT Date of Surgery: Date of Evaluation: 08/30/22 Date of Discharge: 10/03/22 Treatments to Date: 7 Cancellations to Date: 0 No Shows to Date: 0 Discharge Status: Achieved Goals Improved Function Independent with HEP Discharge Summary: SHE Pt HAS MET HER PT GOALS AT THIS TIME- ENHANCED POSTURAL CARRYOVER/ IMPROVED FORM, WFL LUMBOPELVIC / PROX LEs STAB , HER PAIN LEVELS ARE SIGNIF REDUCED; SHE HAS BEEN ABLE TO RESUME REG ADLs AND INCR FITNESS-> HER LEFI SCORE HAS IMPROVED FROM 47/80 AT EVAL TO 72/80. SHE IS D/C'D THIS DATE W HER PROGRESSIVE HEP. SHE HAS MET HER AROM / FLEXIBILITY/ STRENGTH GOALS. Electronically signed by: BRII BLACK,PT Please sign and return to therapist. Thank you for your referral.
== END 2022-10-03 09:23 | disposition home or self-care (01) ==
LOC: HO.PT 08:00
PROVIDERS: PCP Nurse Practitioner Family; Visit Provider Nurse Practitioner Family
DX: M25.572 Pain in left ankle and joints of left foot (principal)
CPT/HCPCS: 97110; 97112; 97161

== ENCOUNTER → 2022-10-03 10:13 | Outpatient (BNVA) | payer OTHER, SELFPAY | PROVIDERS: PCP Nurse Practitioner Family; Visit Provider Obstetrics & Gynecology | DX: D25.9 Leiomyoma of uterus, unspecified (principal); N84.0 Polyp of corpus uteri | CPT/HCPCS: 99212 ==

== ENCOUNTER 2022-11-02 10:54 | Day surgery (SDC) | payer OTHER, SELFPAY ==
[2022-10-31 07:16] VITALS: BMI 24.6
[2022-11-02] VITALS (8 sets, daily range): BP systolic 92–113; BP diastolic 54–70; PULSE 40–62; RESP 14–16; TEMP 36.2–36.9; O2SAT 97–100
[2022-11-02 11:22] LABS: UPreg QC Valid YES; Urine Pregnancy NEGATIVE (NEGATIVE)
[2022-11-02] MEDS: Lactated Ringers 1,000 ML 100 ML IVCONT (11:41)
--- NOTE | 2022-11-02 11:49 | HO.ANESPROP2 ---
PMFSH Active Problems Active Problems: All Active Problems Left knee pain (Acute) Tick bite (Acute) Fibroid uterus (Acute) Adult general medical exam (Acute) Endometrial polyp (Acute) Contact dermatitis (Acute) Pelvic pain (Acute) Skin rash (Acute) Left ankle pain (Acute) Impacted cerumen of both ears (Acute) Right hip pain (Acute) Hip pain, chronic (Acute) Elbow pain, right (Acute) Rash of face (Acute) Polyarthralgia (Acute) Bipolar 2 disorder (Acute) Chest discomfort (Acute) JACK positive (Acute) Hives (Acute) Hyperglycemia (Acute) Hx of abnormal cervical Pap smear (Acute) Overweight (BMI 25.0-29.9) (Acute) Severe depression (Acute) Severe anxiety (Acute) Vitamin D deficiency (Acute) Past Medical History Medical History Depression Encounter to establish care (~03/19/21) Vitamin A deficiency Family History Family History Father Colon cancer Cancer of kidney Maternal Grandfather Colon cancer Surgical History Surgical History History of colposcopy History of Problems with Anesthesia: No Social History Social History Housing: Apartment Alcohol intake: never Patient Tobacco Use Status: Never used Tobacco Tobacco use type: Cigarette e-Cigarette/Vaping Use: Never Used Second Hand Smoke Exposure: No Use of substances other than those prescribed or required for medical reasons: Yes Substance Use Type Other:: cbd Substance Use Frequency: Socially Are you DNR?: No Advance Directives: No Advance Directives Information Provided: Yes service: No Current occupational status: unemployed Cognitive needs: No Hearing needs: No Vision needs: Yes Meds Allergies Allergy/AdvReac Type Severity Reaction Status Date / Time latex Allergy Mild Anaphylaxis Verified 10/03/22 10:33 Sulfa (Sulfonamide Allergy Mild Hives Verified 10/03/22 10:33 Antibiotics) Active Medications: Current Medications Lactated Ringer's (Lr) 1,000 mls @ 100 mls/hr IVCONT .Q10H ANA MARIA Last Admin: 11/02/22 11:41 Dose: 100 mls/hr Home Medications Medication Instructions Recorded Confirmed Last Taken Type triamcinolone acetonide 0.1 % 1 appl topical DAILY 05/17/21 10/31/22 Unknown History lotion Exam Exam Date and Time: November 02, 2022 1149 Height,Weight and Vital Signs: Height 5 ft Weight 57.153 kg Last Vital Signs Temp 97.2 F 11/02/22 11:29 Pulse 47 L 11/02/22 11:29 Resp 16 11/02/22 11:29 BP 97/54 L 11/02/22 11:29 Pulse Ox 99 11/02/22 11:29 O2 Del Method Room Air 11/02/22 11:29 Pertinent Lab Results Pertinent Lab Results: Laboratory Tests 11/02/22 11:10 Urine Test NEGATIVE Airway Mallampati Class: II TM Dist: >3cm Neck ROM: Full Loose/Missing/Broken Teeth: No Heart: RRR Lungs: CTA Assessment and Plan Assessment Anesthesia Assessment: Anesthesia Plan Discussed and Chart Reviewed Final Anesthetic Review History of Problems with Anesthesia: No NPO: Yes ASA Class: II Final Preanesthetic Review: Meds/Jimmy Chart Reviewed and Consent Obtained/Reviewed Patient Risk: Low Procedure Risk: Low Anesthetic Plan Anesthetic Plan: GA Disposition: Standard PACU
--- NOTE | 2022-11-02 11:57 | MHC.SHP ---
Pre-Procedural Eval Section A Date of Service: 11/02/22 The patient is an INPATIENT: No Changes since office visit: No Cold of Flu in the past 2 weeks, No New Medical Problems, No Changes in Medication and No Patient answered all questions The History & Physical has been completed within 30 days and I have reviewed it.: Yes Section B Chief Complaint: Leiomyoma of uterus, unspecified Allergies: Allergies Allergy/AdvReac Type Severity Reaction Status Date / Time latex Allergy Mild Anaphylaxis Verified 10/03/22 10:33 Sulfa (Sulfonamide Allergy Mild Hives Verified 10/03/22 10:33 Antibiotics) Plan Diagnosis/Plan: Unchanged I have reviewed the history and physical and performed a pertinent physical examination on my patient. No changes have occurred unless specified. Time Spent With Patient Time: Total time managing care of this patient today ____ minutes.
--- NOTE | 2022-11-02 12:48 | P.BOP_ITS ---
Brief Operative Note Date of Service: 11/02/22 Pre-op diagnosis: Abnormal uterine bleeding, endometrial polyps by ultrasound Post-op diagnosis: same (Endometrial polyp) Procedure: Hysteroscopy D&C, Polypectomy Surgeon: Carlos Reveles MD Anesthesia: GLMA Was an Brake Lining Finisher Asbestos used for this Procedure?: No Estimated blood loss (mL): 0 Pathology: other (Endometrial Scrapping. Polyp) Condition: stable Disposition: PACU
--- NOTE | 2022-11-02 12:49 | W.PM.OPN ---
Operative Note Operative Note Date of Service: 11/02/22 Narrative: Preop Diagnosis: Abnormal uterine bleeding, Endometrial polyps by US Operation: Diagnostic Hysteroscopy, Dilataion & Curettage and polypectomy Post Op Diagnosis: Endometrial Polyp QBL: Minimal Anesthesia: GLMA Surgeon: Carlos Reveles MD Cnc Machine Operator: None Complication: None Pathology: Endometrial Scrapings, Endometrial polyp Procedure: The patient was put in the dorsal lithotomy position, scrubbed, and draped in the usual manner. A sterile speculum was inserted in the patient's vagina. The anterior lip of the cervix was grasped with a single tooth tenaculum. The cervix was dilated up to 5 mm, then the scope was inserted in the patient's uterus. Inspection revealed endometrial polyp. The Myosure Reach device was used; it was introduced through the operative channel and polypectomy done with no complications. The scope was then taken out from the uterine cavity, sharp curettings was carried on with minimal to moderate amount of tissues retrieved. At the end of the procedure, all instruments were taken out of the patient uterine and vaginal cavity. The single tooth tenaculum was removed and homeostasis was assured using pressure,. The patient tolerated the procedure well and was transferred to the PACU in a stable condition.
[2022-11-02] MEDS: ondansetron HCL 4 MG/2 ML VIAL IVPUSH (13:03)
== END 2022-11-02 14:25 | disposition home or self-care (01) ==
PROVIDERS: Anesthesiology; PCP Nurse Practitioner Family; Visit Provider Obstetrics & Gynecology
PROC: 0UDB8ZZ Extraction of Endometrium, Via Natural or Artificial Opening Endoscopic (ICD-10-PCS; CPT 58558; principal; 2022-11-02 12:30)
DX: N84.0 Polyp of corpus uteri (principal); N93.9 Abnormal uterine and vaginal bleeding, unspecified; E50.9 Vitamin A deficiency, unspecified; F31.81 Bipolar II disorder; M25.50 Pain in unspecified joint; Z79.899 Other long term (current) drug therapy; Z88.2 Allergy status to sulfonamides; Z91.040 Latex allergy status
CPT/HCPCS: 58558; 81025; 88305; J1100; J1885; J2405; J2550; J3010

== ENCOUNTER → 2022-11-02 10:54 | Outpatient (BNV) | payer OTHER, SELFPAY | PROVIDERS: PCP Nurse Practitioner Family; Visit Provider Obstetrics & Gynecology | DX: N84.0 Polyp of corpus uteri (principal) | CPT/HCPCS: 58558 ==

== ENCOUNTER 2022-11-16 10:59 | Outpatient (AMB) | payer OTHER, SELFPAY ==
--- NOTE | 2022-11-16 10:58 | MHC.OFFVIS ---
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 The pathology showed the following: A. Endometrial polyp, resection: -Fragments compatible with benign endometrial polyp; negative for atypia and carcinoma. B. Endometrium, curettage: -Benign proliferative endometrium with fragments suggestive of benign polyp; negative for atypia and carcinoma. -Benign endocervical glandular and squamous epithelium. The workup done so far for abnormal uterine bleeding include the following: H&H= 11.6/36.3 TSH, GC and chlamydia were negative. Co testing was done was negative. Mammogram was BI-RADS 1 Pelvic ultrasound showed the following: Uterus: The uterus is anteverted and measures 8.7 x 3.0 x 5.4 cm. The double wall endometrial thickness is 1.1 mm. Within the endometrium are 2 echogenic lesions with vascularity, measuring 0.6 x 0.4 x 0.6 cm and 0.5 x 0.5 x 0.8 cm which may reflect endometrial polyps. The uterus is smooth in contour and has normal myometrial echogenicity. Multiple intramural uterine fibroids are noted measuring up to 1.5 cm. Adnexa: Both ovaries are visualized. There is normal color flow to the adnexa. There is no ovarian torsion.? There is no pelvic ascites or fluid collection. Right ovary measures 3.0 x 1.9 x 2.9 cm. Left ovary measures 2.6 x 1.6 x 1.4 cm. ? [facility] Medical History Depression Encounter to establish care (~03/19/21) Vitamin A deficiency Surgical History History of colposcopy Family History Father Colon cancer Cancer of kidney Maternal Grandfather Colon cancer Social History Housing: Apartment Alcohol intake: never Patient Tobacco Use Status: Never used Tobacco Tobacco use type: Cigarette e-Cigarette/Vaping Use: Never Used Second Hand Smoke Exposure: No service: No Current occupational status: unemployed Cognitive needs: No Hearing needs: No Vision needs: Yes Female Reproductive History Menstrual Age of Menarche: 10 Review of Systems Const All systems reviewed & are unremarkable except as noted in HPI and below Reports as per HPI and Reports no additional complaints GI Reports no additional complaints Reports no additional complaints Assessment & Plan Assessment & Plan (1) Abnormal uterine bleeding (AUB): Code(s): N93.9 - Abnormal uterine and vaginal bleeding, unspecified Plan: Discussed with the patient the results of the work up done and options of treatment including Lysteda, BCP's, Mirena IUD, endometrial ablation and hysterectomy. All pros, cons, risks and benefits if each option was discussed with the patient and the patient decided to think about it and get back to us. All questions answered the patient verbalized understanding. (2) Myoma: Code(s): D21.9 - Benign neoplasm of connective and other soft tissue, unspecified Plan: Discussed with the patient the findings on pelvic ultrasound & the risk of myosarcoma; discussed with the patient the options of treatment including expectant management versus hysterectomy; the pros and cons, risks benefits of each approach were discussed with the patient including the fact that in cases of myosarcoma, surgical treatment can lead to early diagnosis and positively affects the prognosis; after further discussion, the patient decided to proceed with expectant management. Will repeat pelvic ultrasound periodically. Instructions given to patient to call in case any of the following occurs: pressure symptoms, abnormal uterine bleeding, pelvic pain; and to schedule a future office follow-up appointment for reassessment and to order a repeat ultrasound . All questions answered, the patient verbalized understanding and agreed with the plan . I spent a total of 20 minutes reviewing the chart, talking to the patient via video and documenting in the medical record. Telehealth Telehealth Location of patient: address on file Patient Identification confirmed using: Name, : Yes Telehealth method: video Patient verbally consented to treatment: Yes Patient verbally consented to billing insurance company: Yes Patient informed of any privacy concerns related to visit: Yes Coding Level of Care Code Tele Est Pt Level 3 (84675) Diagnoses Abnormal uterine bleeding (AUB) N93.9 Myoma D21.9
== END 2022-11-16 15:15 | disposition home or self-care (01) ==
LOC: HO.HWS 10:59
PROVIDERS: PCP Nurse Practitioner Family; Visit Provider Obstetrics & Gynecology
DX: N93.9 Abnormal uterine and vaginal bleeding, unspecified (principal); D21.9 Benign neoplasm of connective and other soft tissue, unspecified
CPT/HCPCS: 99213

== ENCOUNTER → 2022-11-16 10:59 | Outpatient (BNVA) | payer OTHER, SELFPAY | PROVIDERS: PCP Nurse Practitioner Family; Visit Provider Obstetrics & Gynecology ==

== ENCOUNTER 2022-11-21 07:16 | Outpatient (AMB) | payer OTHER, SELFPAY ==
--- NOTE | 2022-11-21 07:17 | A.OFFPC_ITS ---
Intake Visit Reasons: Irritable bowel syndrome Allergies latex Allergy (Mild, Verified 11/21/22 07:17) Anaphylaxis Sulfa (Sulfonamide Antibiotics) Allergy (Mild, Verified 11/21/22 07:17) Hives Tobacco use date assessed: 08/18/22 Dental Screening Dental Screen Date: 11/21/22 Did you have a dental visit in the last 12 months?: Yes Did you have a dental problem in the last 6 months where you did not have access to dental care?: No Was dental information given to patient?: Patient has dentist HPI HPI Comments History of Present Illness Details 42-year-old female past medical history significant for bipolar 2 disorder, JACK positive, Vit D deficiency, severe anxiety and depression. Patient of Molly Kline last seen in August presents today for telehealth appointment. Patient states for 1 1/2 weeks, 2-3 dark green/brown formed, oily stool with a foul ordor. Denies blood in stool. States abdominal cramping when she has to go which is relieved by using the bathroom. Patient denies any viral illness or sick contacts. Denies nausea and vomiting. Patient reports past history of IBS for which she was previously followed by Gastroenterology, reports she has not seen a jet aircraft servicer since 2016. Offered stool study/lab work up, however patient reports she is not local and this would be difficult for her to complete. Patient agreeable to for referral to Gastroenterology. Patient recently underwent procedure to have her uterine polyps removed. [facility] Medical History Depression Encounter to establish care (~03/19/21) Vitamin A deficiency Surgical History History of colposcopy Family History Father Colon cancer Cancer of kidney Maternal Grandfather Colon cancer Social History Housing: Apartment Alcohol intake: never Patient Tobacco Use Status: Never used Tobacco Tobacco use type: Cigarette e-Cigarette/Vaping Use: Never Used Second Hand Smoke Exposure: No service: No Current occupational status: unemployed Cognitive needs: No Hearing needs: No Vision needs: Yes Female Reproductive History Menstrual Age of Menarche: 10 Questionnaire PHQ-9 Over the last 2 weeks, how often have you been bothered by any of the following problems? 1. Little interest or pleasure in doing things: nearly every day 2. Feeling down, depressed, or hopeless: nearly every day 3. Trouble falling or staying asleep, or sleeping too much: not at all 4. Feeling tired or having little energy: not at all 5. Poor appetite or overeating: several days 6. Feeling bad about yourself - or that you are a failure or have let yourself or your family down: several days 7. Trouble concentrating on things, such as reading the newspaper or watching television: not at all 8. Moving or speaking so slowly that other people could have noticed. Or the opposite - being so fidgety or restless that you have been moving around a lot more than usual: not at all 9. Thoughts that you would be better off or of hurting yourself in some way: not at all Total score: 8 Depression Screening Interpretation: Negative 02745 - PHQ-9 Billing: Yes Source: Developed by Drs. Avinash Hubbard, Brigid Bolanos, Nicola Connolly and colleagues, with an educational ming from [employer]. Thrive Questionnaire Date Thrive assessed: 04/20/22 AUDIT C Alcohol Use Questionnaire (AUDIT-C) 1. How often do you have a drink containing alcohol?: Never 2. How many drinks containing alcohol do you have on a typical day when you are drinking?: 1 or 2 (0) 3. How often do you have six or more drinks on one occasion?: Never Total Score: 0 Score Reviewed/Action Taken: No THERESE-7 AMB Questionnaire THERESE-7 Date THERESE - 7 assessed: 08/18/22 Source: Developed by Drs. Avinash Hubbard, Nicola Zayas and colleagues, with an educational ming from [employer]. Review of Systems Const Denies chills, Reports fatigue and Denies fever(s) Card Reports no additional complaints Resp Reports no additional complaints GI Denies melena, Reports change in bowel habits, Reports change in stool character, Denies coffee ground emesis, Denies constipation, Reports GI cramping, Denies diarrhea, Denies nausea and Denies vomiting Endo Reports fatigue Physical exam (Primary Care) Vital Signs: Unable to complete as this is a telehealth appointment. Tobacco/Smoking Status: Tobacco use Status Tobacco use date assessed 08/18/22 11/21/22 07:19 Patient Tobacco Use Status Never used Tobacco 11/21/22 07:19 Tobacco use type Cigarette 11/21/22 07:19 e-Cigarette/Vaping Use Never Used 11/21/22 07:19 PHQ-9: PHQ-9 Score PHQ-9: Total score 8 11/21/22 07:58 Depression Screening Interpretation: Negative Thrive Assessment: Date of Thrive Assessment Date Thrive assessed 04/20/22 11/21/22 07:19 Telehealth Telehealth Location of patient: address on file Patient Identification confirmed using: Name, : Yes Telehealth method: video (Android) Patient verbally consented to treatment: Yes Patient verbally consented to billing insurance company: Yes Patient informed of any privacy concerns related to visit: Yes Minutes spent on Phone/Video with Pt.: 13 Assessment and Plan Assessment & Plan (1) IBS (irritable bowel syndrome): Code(s): K58.9 - Irritable bowel syndrome without diarrhea Plan: Referral entered to gastroenterology. Given patient does not live locally declined stool studies and lab at this time. Signs and symptoms reviewed with patient when to follow-up with PCP Plan Keep scheduled follow up with pcp in December. Orders: Referrals Gastroenterology Referral K58.9 - Irritable bowel syndrome without diarrhea Coding Level of Care Code Tele New Pt Level 3 (24141) Diagnoses IBS (irritable bowel syndrome) K58.9
== END 2022-11-21 07:35 | disposition home or self-care (01) ==
LOC: HO.HMGH 07:16
PROVIDERS: PCP Nurse Practitioner Family; Visit Provider Nurse Practitioner Family
DX: K58.9 Irritable bowel syndrome, unspecified (principal)
CPT/HCPCS: 99203

== ENCOUNTER 2023-03-21 14:27 | Outpatient (REF) | payer OTHER, SELFPAY ==
[2023-03-22 07:39] LABS: Lyme Abs Screen <0.90 index; Rubella IgG Antibody 5.47 Index
[2023-03-23 19:09] LABS: TS Negative Control Passed; TS Panel A 0; TS Panel B 0; TS Positive Control Passed; TSpotTB Negative (Negative)
== END 2023-03-21 14:28 | disposition home or self-care (01) ==
LOC: HO.LAB 14:27
PROVIDERS: PCP Nurse Practitioner Family; Visit Provider Nurse Practitioner Family
DX: Z11.1 Encounter for screening for respiratory tuberculosis (principal); T14.8XXA Other injury of unspecified body region, initial encounter; W57.XXXA Bitten or stung by nonvenomous insect and other nonvenomous arthropods, initial encounter
CPT/HCPCS: 36415; 86481; 86617; 86618; 86735; 86762; 86765; 86787

== ENCOUNTER → 2023-04-19 12:24 | Outpatient (BNVA) | payer OTHER, SELFPAY | PROVIDERS: PCP Nurse Practitioner Family; Visit Provider Physician Assistant | DX: Z01.818 Encounter for other preprocedural examination (principal); K58.9 Irritable bowel syndrome, unspecified; Z80.0 Family history of malignant neoplasm of digestive organs | CPT/HCPCS: 99202 ==

== ENCOUNTER 2023-08-25 08:15 | Outpatient (REF) | payer OTHER, SELFPAY ==
[2023-08-25 08:25] LABS: MANUAL DIFF FLAG NO
[2023-08-25 08:47] LABS: Basophils Percent Auto 0.5 % (0-2); Eosinophils Absolute Auto 0.1 X10*3/uL (0.0-0.4); Hematocrit 38.7 % (37.0-47.0); Hemoglobin 12.7 g/dl (12.0-16.0); Imm Gran Abs Auto 0.02 X10*3/uL (0.00-0.03); Imm Gran Pct Auto 0.3 % (0.0-0.4); Lymphocytes Absolute Auto 1.4 X10*3/uL (1.2-4.9); Lymphocytes Percent Auto 24.6 % (20-40); Mean Corpuscular HGB Conc 32.8 g/dl (31.0-35.0); Mean Corpuscular Volume 82.3 fL (80.0-98.0); Mean Platelet Volume 9.7 fL (9.4-12.3); Monocytes Absolute Auto 0.6 X10*3/uL (0.1-1.2); Monocytes Percent Auto 10.2 % (2-11); Neutrophils Absolute Auto 3.7 x10*3/uL (2.0-8.3); Neutrophils Percent Auto 63.4 % (45-73); Platelet Count 248 X10*3/uL (160-400); Red Cell Distribution Width 13.5 % (11.0-16.0); White Blood Count 5.9 X10*3/uL (4.8-10.8)
[2023-08-25 09:17] LABS: Alanine Aminotransferase 13 U/L (0-31); Albumin Level 4.1 g/dL (3.5-5.0); Alkaline Phosphatase 44 U/L (39-117); Anion Gap 10 (12-20); Aspartate Amino Transferase 20 U/L (5-31); Bilirubin Total 0.3 mg/dL (0.0-1.0); Blood Urea Nitrogen 12 mg/dL (9-16); Calcium 9.2 mg/dL (8.4-10.2); Carbon Dioxide 27 mmol/L (22-29); Chloride 106 mmol/L (96-108); Estimated Glomerular Filt Rate > 60; Glucose Random 80 mg/dL (60-115); Potassium 3.7 mmol/L (3.3-5.1); Sodium 139 mmol/L (135-145); Total Protein 7.2 g/dL (6.5-8.0)
[2023-08-31 15:12] LABS: Anti Nuclear Antibody Screen POSITIVE (NEGATIVE)
== END 2023-08-25 08:16 | disposition home or self-care (01) ==
LOC: HO.LAB 08:15
PROVIDERS: Visit Provider Physician Assistant
DX: L30.9 Dermatitis, unspecified (principal)
CPT/HCPCS: 36415; 80053; 85025; 86038; 86039

== ENCOUNTER 2023-08-30 11:24 | Outpatient (REF) | payer OTHER, SELFPAY ==
[2023-08-30 12:47] LABS: Amphetamine Screen Urine Not Detected (Not Detect); Barbiturates, Urine Not Detected (Not Detect); Benzodiazepines Screen Urine Not Detected (Not Detect); Buprenorphine Scr Not Detected (Not Detect); Cannabinoid Screen Urine Not Detected (Not Detect); Cocaine Screen Urine Not Detected (Not Detect); Fentanyl, urine Not Detected (Not Detect); Methadone Screen, Urine Not Detected (Not Detect); Opiate Screen Urine Not Detected (Not Detect); Oxycodone Screen Urine Not Detected (Not Detect); Phencyclidine Screen Urine Not Detected (Not Detect)
== END 2023-08-30 11:25 | disposition home or self-care (01) ==
LOC: HO.LAB 11:24
PROVIDERS: Visit Provider Nurse Practitioner Psychiatric/Mental Health
DX: Z79.899 Other long term (current) drug therapy (principal)
CPT/HCPCS: 80307

== ENCOUNTER 2023-10-13 12:45 | Emergency (ER) | payer OTHER, SELFPAY ==
[2023-10-13 12:58] VITALS: BP 126/71; PULSE 93; RESP 18; TEMP 37.2; O2SAT 97; BMI 25.8
--- NOTE | 2023-10-13 12:59 | ED.GENADULT ---
HPI - General Adult General Chief complaint: General Medical Stated complaint: covid+ Time Seen by Provider: 10/13/23 13:04 Source: patient Mode of arrival: ambulatory Limitations: no limitations History of Present Illness HPI narrative: Patient is a 43-year-old female who presents to the emergency department for evaluation. She reports that she awoke with a sore scratchy throat. She has experienced this in the past with COVID-19. She reports that she took a home COVID-19 test which resulted as positive. She has requesting a prescription for Paxlovid to prevent long-term COVID-19 effects. She reports that she has taken this in the past, most recently in December of 2022. Related Data Previous Rx's ?Medication ?Instructions ?Recorded epinephrine 0.3 mg/0.3 mL 0.3 mg (0.3 mL) IM ONCE PRN 04/28/21 injection, auto-injector (EpiPen anaphylaxis #2 ea 2-Duy) betamethasone, augmented 0.05 % 1 appl topical DAILY PRN skin 08/01/22 topical ointment (Diprolene irritation 15 days #15 grams (augmented)) escitalopram oxalate 5 mg tablet 5 mg PO DAILY 90 days #90 tabs 08/01/22 cholecalciferol (vitamin D3) 25 25 mcg PO DAILY #90 tabs 11/21/22 mcg (1,000 unit) tablet triamcinolone acetonide 0.1 % 1 appl topical DAILY #60 mL 04/10/23 lotion nirmatrelvir 300 mg (150 mg See Rx Instructions PO .COMPLEX 10/13/23 x2)-ritonavir 100 mg tablet,dose #30 ea pack (Paxlovid) Allergies Allergy/AdvReac Type Severity Reaction Status Date / Time latex Allergy Mild Anaphylaxis Verified 10/13/23 13:02 Sulfa (Sulfonamide Allergy Mild Hives Verified 10/13/23 13:02 Antibiotics) Review of Systems Review of Systems: Yes all other systems are reviewed and are negative PMFSH Past Medical History Attestation statement: The following information was validated with the patient. Source: old records reviewed Medical History Vitamin A deficiency Depression Encounter to establish care (~03/19/21) Surgical History History of colposcopy Family History Family History Father Colon cancer Cancer of kidney Maternal Grandfather Colon cancer Social History Social History (Updated 04/19/23 @ 12:49 by Lulu Castañeda PA-C) Housing: Apartment Alcohol intake: never Patient Tobacco Use Status: Never used Tobacco Tobacco use type: Cigarette e-Cigarette/Vaping Use: Never Used Second Hand Smoke Exposure: No Advance Directives: No Advance Directives Information Provided: No Do you have a plan to hurt others: No Plan service: No Current occupational status: unemployed and student Current occupation: [employer] Cognitive needs: No Hearing needs: No Vision needs: Yes Physical Exam ED Vital Signs: Vital Signs - 24 hr 10/13/23 12:58 10/13/23 14:48 Temperature 98.9 F 98.9 F Pulse Rate 93 93 Respiratory Rate 18 18 Blood Pressure 126/71 126/71 Pulse Oximetry 97 97 Oxygen Delivery Method Room Air Room Air BMI result Body Mass Index 25.8 Appearance: Alert.?Oriented to person, place and time. No acute distress.?Normal affect. Eyes: Pupils equal, round and reactive to light.? ENT: Pharynx mildly erythematous without exudates or tonsillar hypertrophy. Uvula is midline. No trismus. No drooling.??TM normal bilaterally Neck: Normal inspection.? Neck supple.??No cervical adenopathy CVS: Heart sounds normal. Normal heart rate and rhythm.? Pulses normal.?? Respiratory: No respiratory distress.? Lung sounds clear to auscultation bilaterally?? Abdomen: Soft and non-tender. Normoactive bowel sounds. ?? Skin: Skin warm and dry.? Normal skin color.? Extremities: No lower extremity edema Neuro: Moves all extremities spontaneously. Sensation intact bilaterally. Ambulates with normal steady gait. Course Course Course Narrative: reports positive COVID-19, last taken December of last year, requesting Paxlovid Medical Decision Making Medical Decision Making MDM Narrative: Patient is a 43-year-old female, presenting for evaluation of sore throat, she is COVID-19 positive. 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 She is requesting Paxlovid, discussed emergency use authorization, possible side effects, contraindications. She has no prior history of hepatic or renal dysfunction, had unremarkable CMP in August of 2023. She took a course of Paxlovid in February of 2023, >6 months ago without complication. Well-appearing, nontoxic, afebrile, no tachycardia or tachypnea/hypoxia. Speaking clear full sentences, ambulatory with steady gait. Discussed additional conservative treatment including rest, hydration, Tylenol/ibuprofen as needed for fever and body aches, saline nasal spray, humidifier, [id number] cold medication. Advised to follow-up with primary care provider as needed, discussed reasons to return back to the emergency department. All questions were answered. Patient discharged home in stable condition. Differential Diagnosis Differential Diagnoses: The differential diagnosis associated with the presentation includes (See narrative above) Lab Data MDM Lab Attestation statement: I reviewed the patient's lab results. (See narrative above) Labs: Lab Results 10/13/23 Range/Units 13:33 Influenza Type A (PCR) NEGATIVE (Negative) Influenza Type B (PCR) NEGATIVE (Negative) RSV RNA Qual (PCR) NEGATIVE (Negative) SARS-CoV-2 RNA (RT-PCR) POSITIVE A (Negative) External Record Review External record reviewed: Outpatient record Prescription Management I considered prescription management with: Antiviral Discharge Plan Discharge Clinical Impression: COVID-19 Patient Disposition: Home, Self-Care Instructions: COVID-19 (Coronavirus Disease 2019) (ED) Additional Instructions: At your request a prescription for Paxlovid has been sent to your pharmacy, this is under emergency use authorization for the treatment and COVID-19. It is safe to take with your current prescribed medications. Follow-up with your primary care provider. Return back to emergency department any new or worsening symptoms or concerns. Prescriptions: New Paxlovid 300 mg (150 mg x 2)-100 mg tablets,dose pack See Rx Instructions .ROUTE .COMPLEX Qty: 30 0RF Rx Instructions: take TWO 150 mg tablets of nirmatrelvir with ONE 100 mg tablet of ritonavir twice daily for 5 days No Action epinephrine [EpiPen 2-Duy] 0.3 mg/0.3 mL auto-injector 0.3 mg IM ONCE PRN (Reason: anaphylaxis) Qty: 2 0RF cholecalciferol (vitamin D3) 25 mcg (1,000 unit) tablet 25 mcg PO DAILY Qty: 90 2RF triamcinolone acetonide 0.1 % lotion 1 appl topical DAILY Qty: 60 0RF betamethasone, augmented [Diprolene (augmented)] 0.05 % ointment 1 appl topical DAILY PRN (Reason: skin irritation) 15 Days Qty: 15 0RF escitalopram oxalate 5 mg tablet 5 mg PO DAILY 90 Days Qty: 90 1RF Referrals: Physician,Unknown J [Primary Care Provider] - Interventions: ED Discharge Assessment Last Done: 10/13/23 14:48 Print Language: Icelandic
--- NOTE | 2023-10-13 13:42 | PC.NURSE ---
swabs obtained/sent to lab by tech.
[2023-10-13 14:34] LABS: Influenza A PCR NEGATIVE (Negative); Influenza B PCR NEGATIVE (Negative); Resp Syncy Virus RNA Qual PCR NEGATIVE (Negative); SARS COV2 PCR INHOUSE POSITIVE (Negative)
[2023-10-13 14:48] VITALS: BP 126/71; PULSE 93; RESP 18; TEMP 37.2; O2SAT 97
== END 2023-10-13 15:05 | disposition home or self-care (01) ==
PROVIDERS: Nurse Practitioner Family; Emergency Provider Emergency Medicine
DX: U07.1 COVID-19 (principal)
CPT/HCPCS: 0241U; 99283

== ENCOUNTER → 2024-01-04 14:34 | Outpatient (BNVA) | payer OTHER, SELFPAY | DX: E55.9 Vitamin D deficiency, unspecified (principal); E66.3 Overweight; F32.2 Major depressive disorder, single episode, severe without psychotic features; F41.9 Anxiety disorder, unspecified; R76.8 Other specified abnormal immunological findings in serum; K58.9 Irritable bowel syndrome, unspecified; N89.8 Other specified noninflammatory disorders of vagina | CPT/HCPCS: 96127; 99212 ==

== ENCOUNTER 2024-01-04 14:49 | Outpatient (AMB) | payer OTHER, SELFPAY ==
[2024-01-04 14:34] VITALS: BP 98/60; PULSE 63; O2SAT 98; BMI 26.0
--- NOTE | 2024-01-04 14:34 | A.OFFPC_ITS ---
Vital Signs 01/04/24 14:34 Height 5 ft Weight 133 lb 0.4 oz BMI 26.0 BP 98/60 Blood Pressure Location Lt brachial Position Sitting Pulse 63 Pulse Source Pulse Oximeter Pulse Oximetry (%) 98 Oxygen Delivery Method Room Air Intake Visit Reasons: establish care new pt reschedule Concentrator Operator Required: No Allergies latex Allergy (Mild, Verified 01/04/24 14:48) Anaphylaxis Sulfa (Sulfonamide Antibiotics) Allergy (Mild, Verified 01/04/24 14:48) Hives Medication List - Last Reconciled 01/04/24 by Makenzie Lantigua PA-C betamethasone, augmented 0.05 % (Diprolene (augmented)) 1 appl topical DAILY PRN 15 days cholecalciferol (vitamin D3) 25 mcg PO DAILY epinephrine (EpiPen 2-Duy) 0.3 mg (0.3 mL) IM ONCE PRN escitalopram oxalate 5 mg PO DAILY 90 days triamcinolone acetonide 0.1% 1 appl topical DAILY Tobacco use date assessed: 01/04/24 Dental Screening Dental Screen Date: 01/04/24 Did you have a dental visit in the last 12 months?: Yes Did you have a dental problem in the last 6 months where you did not have access to dental care?: No Was dental information given to patient?: Patient has dentist HPI establish care new pt reschedule HPI Details 43-year-old overweight female at w ith past medical history of anxiety, depression, bipolar 2, IBS last seen by nurse practitioner coming in for annual exam. Patient states she regularly follows with a drum sealer for facial rash and was diagnosed with SLE through the drum sealer who recommended additional testing for lupus. She also has several concerns today. The 1st being she feels her hormones are off and is concerned about a perimenopausal state and possible impaired glucose tolerance. She would like to have hormonal testing and routine labs performed. She also mentions she struggles with vaginal dryness which has been ongoing for several years and has not tried anything for this. [facility] Medical History Vitamin A deficiency Depression Encounter to establish care (~03/19/21) Surgical History History of colposcopy Family History Father Colon cancer Cancer of kidney Maternal Grandfather Colon cancer Social History Housing: Apartment Alcohol intake: never Patient Tobacco Use Status: Never used Tobacco Tobacco use type: Cigarette e-Cigarette/Vaping Use: Never Used Second Hand Smoke Exposure: No service: No Current occupational status: unemployed and student Current occupation: [employer] Cognitive needs: No Hearing needs: No Vision needs: Yes Female Reproductive History Menstrual Age of Menarche: 10 Questionnaire PHQ-9 Over the last 2 weeks, how often have you been bothered by any of the following problems? 1. Little interest or pleasure in doing things: not at all 2. Feeling down, depressed, or hopeless: not at all 3. Trouble falling or staying asleep, or sleeping too much: not at all 4. Feeling tired or having little energy: not at all 5. Poor appetite or overeating: not at all 6. Feeling bad about yourself - or that you are a failure or have let yourself or your family down: not at all 7. Trouble concentrating on things, such as reading the newspaper or watching television: not at all 8. Moving or speaking so slowly that other people could have noticed. Or the opposite - being so fidgety or restless that you have been moving around a lot more than usual: not at all 9. Thoughts that you would be better off or of hurting yourself in some way: not at all Total score: 0 Depression Screening Interpretation: Negative Depression Screening Done: Yes 90385 - PHQ-9 Billing: Yes Source: Developed by Drs. Avinash Hubbard, Brigid Bolanos, Nicola Connolly and colleagues, with an educational ming from [employer]. Thrive Questionnaire Date Thrive assessed: 01/04/24 I am a: Patient What is your living situation today?: I have a steady place to live Within the past 12 months, did the food you bought not last and you didn't have the money to get more?: Never true Within the past 12 months, did you worry whether your food would run out before you got money to buy more?: Never true Do you have trouble paying for medicines?: No Do you have trouble getting transportation to medical appointments?: No Do you have trouble paying your heating and electricity bill?: No Do you have trouble taking care of your child, family member or friend?: No Do you have trouble with day-to-day activities such as bathing, preparing meals, shopping, managing finances, etc.?: No Are you currently unemployed and looking for a job?: No Are you interested in more education?: No Please select the resources that you would like help with: None Currently or been in a relationship where the following occur: No concerns reported THRIVE Score: 0 AUDIT C Alcohol Use Questionnaire (AUDIT-C) 1. How often do you have a drink containing alcohol?: Monthly or less 2. How many drinks containing alcohol do you have on a typical day when you are drinking?: 1 or 2 3. How often do you have six or more drinks on one occasion?: Never Total Score: 1 Score Reviewed/Action Taken: No THERESE-7 AMB Questionnaire THERESE-7 Date THERESE - 7 assessed: 01/04/24 Feeling nervous, anxious, or on edge: 0 = Not at all Not being able to stop or control worryin = Not at all Worrying too much about different things: 0 = Not at all Trouble relaxin = Not at all Being so restless that it is hard to sit still: 0 = Not at all Becoming easily annoyed or irritable: 0 = Not at all Feeling afraid as if something awful might happen: 0 = Not at all Total THERESE-7 score (0-4 normal; 5-9 mild; 10-14 moderate; 15-21 severe): 0 Source: Developed by Drs. Avinash Hubbard, Brigid Bolanos, Nicola Connolly and colleagues, with an educational ming from [employer]. THERESE-7 Assessment Billing THERESE-7 Assessment Tool: THERESE-7 Assessment 26748 Review of Systems Const Denies body aches, Denies fatigue, Denies fever(s), Denies frequent falls, Reports headache(s) and Denies weakness Eyes Reports no additional complaints and Denies change in vision ENT Denies dysphagia, Denies dizziness, Denies facial pain, Reports headache(s), Denies nasal congestion and Denies odynophagia Card Denies chest pain, Denies syncope, Denies irregular heart rhythm, Denies leg edema, Denies lightheadedness and Denies dyspnea Resp Denies cough and Denies dyspnea GI Denies constipation, Denies dysphagia, Denies dyspepsia, Denies diarrhea, Denies nausea, Denies odynophagia and Denies vomiting Denies abnormal vaginal bleeding, Denies change in libido, Denies urinary frequency, Denies dysuria, Denies urinary hesitancy, Denies urinary urgency, Denies vaginal discharge and Reports vaginal dryness Musc Denies back pain and Denies myalgias Skin/Breast Details: Occasional rash on bilateral cheeks Neuro Denies dizziness, Denies syncope, Denies frequent falls, Reports headache(s) and Denies weakness Psych Reports no additional complaints and Denies change in libido Endo Denies change in libido and Denies fatigue Physical exam (Primary Care) Vital Signs: Last Vital Signs Pulse 63 01/04/24 14:34 BP 98/60 01/04/24 14:34 Pulse Ox 98 01/04/24 14:34 Oxygen Delivery Method Room Air 01/04/24 14:34 BMI result Body Mass Index 26.0 Tobacco/Smoking Status: Tobacco use Status Tobacco use date assessed 01/04/24 01/04/24 14:41 Patient Tobacco Use Status Never used Tobacco 01/04/24 14:41 Tobacco use type Cigarette 01/04/24 14:41 e-Cigarette/Vaping Use Never Used 01/04/24 14:41 PHQ-9: PHQ-9 Score PHQ-9: Total score 0 01/04/24 15:13 Depression Screening Interpretation: Negative Thrive Assessment: Date of Thrive Assessment Date Thrive assessed 01/04/24 01/04/24 14:41 Currently or been in a relationship where the following occur: No concerns reported Const General: cooperative, healthy appearing, comfortable and no acute distress Orientation/consciousness: patient oriented x3 HENMT Head: Yes normocephalic Ears: hearing grossly normal bilaterally General nose exam: Normal external nose present Eyes General: appearance normal, both eyes and all related structures Conjunctivae: conjunctivae normal Neck Neck: Yes full ROM and Yes no lymphadenopathy Resp Effort & Inspection: normal respiratory effort Auscultation: clear to auscultation bilaterally, no crackles, no rales, no rhonchi and no wheezes Cardio Rate: regular rate Rhythm: regular rhythm Skin General skin exam: no rashes or lesions noted Neuro General: patient oriented x3 Gait exam (Neuro): Normal gait present Extrem General: Yes normal to inspection, Yes full ROM and No edema Psych Affect: normal affect Attitude: cooperative Insight: Good insight present (Psych) Judgement: Good judgement present (Psych) Coding Level of Care Code Est Pt Level 4 (08655) Diagnoses Vitamin D deficiency E55.9 Overweight (BMI 25.0-29.9) E66.3 Severe depression F32.2 Severe anxiety F41.9 JACK positive R76.8 Bipolar 2 disorder F31.81 IBS (irritable bowel syndrome) K58.9 Vaginal dryness N89.8 Additional Codes THERESE-7 Assessment Billing - THERESE-7 Assessment Tool: THERESE-7 Assessment 93229 ([id number]) Assessment & Plan Assessment & Plan (1) Vitamin D deficiency: Code(s): E55.9 - Vitamin D deficiency, unspecified Category: Medical Plan: Ordered for updated labs. (2) Overweight (BMI 25.0-29.9): Code(s): E66.3 - Overweight Category: Medical Plan: Encouraged healthy diet and regular exercise. (3) Severe depression: Code(s): F32.2 - Major depressive disorder, single episode, severe without psychotic features Category: Medical Plan: Regularly follows with a psychiatrist who prescribes escitalopram. She feels her symptoms are not well managed and we will follow up with her psychiatrist. (4) Severe anxiety: Code(s): F41.9 - Anxiety disorder, unspecified Category: Medical Plan: Regularly follows with a psychiatrist who prescribes escitalopram. She feels her symptoms are not well managed and we will follow up with her psychiatrist. (5) JACK positive: Code(s): R76.8 - Other specified abnormal immunological findings in serum Category: Medical Plan: Repeat testing as well as routine labs ordered for evaluation of possible lupus. (6) Bipolar 2 disorder: Code(s): F31.81 - Bipolar II disorder Category: Medical Plan: Not currently on medical management and feels her symptoms are well managed. (7) IBS (irritable bowel syndrome): Comment: She will continue to monitor manage on her own Code(s): K58.9 - Irritable bowel syndrome, unspecified Category: Medical Plan: Continue to follow with GI. (8) Vaginal dryness: Code(s): N89.8 - Other specified noninflammatory disorders of vagina Category: Medical Plan: She does complain of vaginal dryness and would like to try estrogen cream. Risks of hormonal treatment reviewed with patient including risk of endometrial cancer and possible blood clots. Discussed alternatives such as [id number] water-based lubricants and estrogen cream prescribed today. Advised patient to follow up with gynecology for further management. Plan Patient requesting multitude of hormonal testing. Advised patient to follow up with Gynecology for further testing as they will guide the treatment going forward. Patient is in agreement and we will reach out if she has additional questions. Follow up in 2 months for annual physical exam. This note was constructed using voice recognition software. While every effort has been made to ensure accuracy and broadcast transmitter operator, still areas may have been included sometimes these areas may affect the content or meeting of the given symptoms. Total time spent caring for the patient today was 30 minutes. This includes time spent before the visit reviewing the chart, time spent during the visit, and time spent after the visit and documentation. Orders: Orders Comprehensive Met. Panel Today Z00.00 - Encounter for general adult medical examination without abnormal findings TSH reflex Free T4 Today Z00.00 - Encounter for general adult medical examination without abnormal findings JACK Reflex Titer and Pattern Today R76.8 - Other specified abnormal immunological findings in serum Hemoglobin A1c Today Z00.00 - Encounter for general adult medical examination without abnormal findings Cortisol, Free Today Z00.00 - Encounter for general adult medical examination without abnormal findings UA CC w/rflx Micro + Cult Today R35.89 - Other polyuria Complete Blood Count Auto Diff Today Z00.00 - Encounter for general adult medical examination without abnormal findings Free T4 (Free Thyroxine) Today Z00.00 - Encounter for general adult medical examination without abnormal findings Vitamin B12 and Folate Today Z00.00 - Encounter for general adult medical examination without abnormal findings Vitamin D 25-OH (D2 and D3) Today Z00.00 - Encounter for general adult medical examination without abnormal findings Lipid Panel Today Z00.00 - Encounter for general adult medical examination without abnormal findings CT NG by PCR Today Z00.00 - Encounter for general adult medical examination without abnormal findings Medications: New estradiol 1.25 gram/actuation (EstroGel) 1.25 grams transdermal DAILY 37.5 grams 0RF
== END 2024-01-04 15:29 | disposition home or self-care (01) ==
DX: K58.9 Irritable bowel syndrome, unspecified (principal); F31.81 Bipolar II disorder; E66.3 Overweight; Z68.26 Body mass index [BMI] 26.0-26.9, adult; E55.9 Vitamin D deficiency, unspecified; F41.9 Anxiety disorder, unspecified; R76.8 Other specified abnormal immunological findings in serum; N89.8 Other specified noninflammatory disorders of vagina

== ENCOUNTER 2024-01-05 07:10 | Outpatient (REF) | payer OTHER, SELFPAY ==
[2024-01-05 07:27] LABS: MANUAL DIFF FLAG NO
[2024-01-05 07:41] LABS: Basophils Absolute Auto 0.1 X10*3/uL (0.0-0.2); Basophils Percent Auto 0.9 % (0-2); Eosinophils Absolute Auto 0.1 X10*3/uL (0.0-0.4); Eosinophils Percent Auto 1.5 % (0-4); Hematocrit 40.2 % (37.0-47.0); Hemoglobin 13.2 g/dl (12.0-16.0); Imm Gran Abs Auto 0.02 X10*3/uL (0.00-0.03); Imm Gran Pct Auto 0.4 % (0.0-0.4); Lymphocytes Absolute Auto 1.2 X10*3/uL (1.2-4.9); Lymphocytes Percent Auto 22.8 % (20-40); Mean Corpuscular HGB Conc 32.8 g/dl (31.0-35.0); Mean Corpuscular Volume 82.2 fL (80.0-98.0); Mean Platelet Volume 9.2 fL (9.4-12.3); Monocytes Absolute Auto 0.6 X10*3/uL (0.1-1.2); Monocytes Percent Auto 10.4 % (2-11); Neutrophils Absolute Auto 3.4 x10*3/uL (2.0-8.3); Platelet Count 267 X10*3/uL (160-400); Red Blood Count 4.89 X10*6/uL (4.20-5.50); Red Cell Distribution Width 13.5 % (11.0-16.0); White Blood Count 5.3 X10*3/uL (4.8-10.8)
[2024-01-05 07:51] LABS: Appearance Urine Cloudy; Color Urine Yellow; Glucose Urine UA Negative (Negative); Leukocyte Esterase Urine Small (1+) (Negative); Nitrite Urine Negative (Negative); PH 6.5 (5.0-9.0); Specific Gravity - Urine <= 1.005 (1.005-1.025); UMIC TRIGGER UACC YES; Urine Blood Negative (Negative); Urine Ketones Negative (Negative); Urine Protein Negative (Neg-Trace)
[2024-01-05 07:55] LABS: Estimated Average Glucose 100 mg/dL; Hemoglobin A1C 109.5188 umol/L; Hemoglobin A1c % 5.1 % (<6.0); Total Hemoglobin (HGBA1C) 3366.7987 umol/L
[2024-01-05 07:57] LABS: Bacteria Urine 1+ (None Seen); Hyaline Casts Urine 0-2 /LPF (0-2); RBC Urine 0-2 /HPF (0-2); UACC Culture Trigger YES
[2024-01-05 08:23] LABS: Alanine Aminotransferase 19 U/L (0-31); Alkaline Phosphatase 43 U/L (39-117); Anion Gap 12 (12-20); Aspartate Amino Transferase 25 U/L (5-31); Bilirubin Total 0.5 mg/dL (0.0-1.0); Blood Urea Nitrogen 8 mg/dL (9-16); Calcium 9.4 mg/dL (8.4-10.2); Carbon Dioxide 26 mmol/L (22-29); Chloride 106 mmol/L (96-108); Cholesterol 194 mg/dL (<200); Estimated Glomerular Filt Rate > 60; Glucose Random 93 mg/dL (60-115); HDL Cholesterol 64 mg/dL (>40); LDL Cholesterol Calculated 112 mg/dL (<100); Potassium 3.8 mmol/L (3.3-5.1); Sodium 140 mmol/L (135-145); Total Protein 7.2 g/dL (6.5-8.0); Triglycerides 93 mg/dL (<150)
[2024-01-05 08:50] LABS: Folate 16.1 ng/mL (> or = 4.0); Vitamin B12 571 pg/mL (200-900)
[2024-01-05 08:51] LABS: TSH reflex Free T4 0.94 uIU/mL (0.32-4.0)
[2024-01-05 10:17] LABS: CT PCR NOT DETECTED (Not Detect.); NG PCR NOT DETECTED (Not Detect.)
[2024-01-10 12:33] LABS: Anti Nuclear Antibody Screen POSITIVE (NEGATIVE)
[2024-01-15 16:49] LABS: Cortisol, Free 0.69 mcg/dL
== END 2024-01-05 07:11 | disposition home or self-care (01) ==
LOC: HO.LAB 07:10
DX: Z00.00 Encounter for general adult medical examination without abnormal findings (principal); R76.8 Other specified abnormal immunological findings in serum
CPT/HCPCS: 80053; 80061; 81001; 82306; 82530; 82607; 82746; 83036; 84439; 84443; 85025; 86038; 86039; 87086; 87491; 87591

== ENCOUNTER 2024-02-05 13:24 | Outpatient (AMB) | payer OTHER, SELFPAY ==
[2024-02-05 13:36] VITALS: BP 100/60; BMI 26.0
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
== END 2024-02-05 15:01 | disposition home or self-care (01) ==
LOC: HO.HWSM 13:34
PROVIDERS: Visit Provider Advanced Practice Midwife
DX: Z01.419 Encounter for gynecological examination (general) (routine) without abnormal findings (principal); Z20.2 Contact with and (suspected) exposure to infections with a predominantly sexual mode of transmission; Z87.42 Personal history of other diseases of the female genital tract; N84.0 Polyp of corpus uteri; Z71.85 Encounter for immunization safety counseling; Z12.39 Encounter for other screening for malignant neoplasm of breast; N89.8 Other specified noninflammatory disorders of vagina; N94.2 Vaginismus; N95.1 Menopausal and female climacteric states; F64.0 Transsexualism
CPT/HCPCS: 99396

== ENCOUNTER 2024-02-05 13:24 | Outpatient (REF) | payer OTHER, SELFPAY ==
[2024-02-06 05:39] LABS: CT PCR NOT DETECTED (Not Detect.); NG PCR NOT DETECTED (Not Detect.)
[2024-02-06 11:17] LABS: Bacterial Vaginosis PCR NEGATIVE (Negative); Candida Group PCR DETECTED (Not Detect); Candida glab krusei PCR NOT DETECTED (Not Detect); Trichomonas vaginalis PCR NOT DETECTED (Not Detect)
== END 2024-02-05 13:25 | disposition home or self-care (01) ==
LOC: HO.LAB 13:24
PROVIDERS: Visit Provider Advanced Practice Midwife
DX: Z00.00 Encounter for general adult medical examination without abnormal findings (principal); Z01.419 Encounter for gynecological examination (general) (routine) without abnormal findings; K58.9 Irritable bowel syndrome, unspecified; F31.81 Bipolar II disorder; R76.8 Other specified abnormal immunological findings in serum; F32.2 Major depressive disorder, single episode, severe without psychotic features; F41.9 Anxiety disorder, unspecified; G47.00 Insomnia, unspecified; N89.8 Other specified noninflammatory disorders of vagina; N94.2 Vaginismus; N95.1 Menopausal and female climacteric states; F64.0 Transsexualism; Z20.2 Contact with and (suspected) exposure to infections with a predominantly sexual mode of transmission; Z87.42 Personal history of other diseases of the female genital tract; Z71.85 Encounter for immunization safety counseling
CPT/HCPCS: 0352U; 87491; 87591; 96127; 99396

== ENCOUNTER 2024-02-05 15:00 | Outpatient (AMB) | payer OTHER, SELFPAY ==
--- NOTE | 2024-02-05 15:05 | MHC.PC.OV ---
Vital Signs 02/05/24 15:06 Height 5 ft Weight 133 lb 0.4 oz BMI 26.0 BP 98/56 L Blood Pressure Location Rt brachial Position Sitting Pulse 58 Pulse Source Pulse Oximeter Pulse Oximetry (%) 98 Oxygen Delivery Method Room Air Intake Visit Reasons: PE Intake Note: Patient is here today for a physical. Allergies latex Allergy (Mild, Verified 02/05/24 15:29) Anaphylaxis Sulfa (Sulfonamide Antibiotics) Allergy (Mild, Verified 02/05/24 15:29) Hives Medication List - Last Reconciled 02/05/24 by Makenzie Lantigua PA-C betamethasone, augmented 0.05 % (Diprolene (augmented)) 1 appl topical DAILY PRN 15 days cholecalciferol (vitamin D3) 25 mcg PO DAILY epinephrine (EpiPen 2-Duy) 0.3 mg (0.3 mL) IM ONCE PRN escitalopram oxalate 5 mg PO DAILY 90 days estradiol 1.25 gram/actuation (EstroGel) 1.25 grams transdermal DAILY miconazole nitrate 2% (Miconazole-7) 1 appful vaginal BEDTIME 7 days triamcinolone acetonide 0.1% 1 appl topical DAILY Tobacco use date assessed: 01/04/24 Dental Screening Dental Screen Date: 02/05/24 Did you have a dental visit in the last 12 months?: Yes Did you have a dental problem in the last 6 months where you did not have access to dental care?: No Was dental information given to patient?: Patient has dentist HPI PE HPI Details 43-year-old female with past medical history of anxiety, depression, bipolar 2, IBS last seen 01/04/2024 coming in for annual physical. In review of the notes, patient was seen by [facility] for routine well women exam and referred for mammogram at that time. Patient regularly sees her therapist is on escitalopram which he feels has been managing her anxiety well. She does have difficulty sleeping at night and is often woken up in the middle of the night by anxiety and unable to fall back asleep. She continues to be housing and secure and is currently looking for a job. She does mentioned having left lower back tenderness which she feels may be exacerbated by her IBS. [facility] Medical History (Updated 02/05/24 @ 16:04 by Makenzie Lantigua PA-C) Well woman exam with routine gynecological exam Vitamin A deficiency Depression Encounter to establish care (~03/19/21) Surgical History History of colposcopy Family History Father Colon cancer Cancer of kidney Maternal Grandfather Colon cancer Social History Housing: Apartment Alcohol intake: never Patient Tobacco Use Status: Never used Tobacco Tobacco use type: Cigarette e-Cigarette/Vaping Use: Never Used Second Hand Smoke Exposure: No service: No Current occupational status: unemployed and student Current occupation: [employer] Cognitive needs: No Hearing needs: No Vision needs: Yes Female Reproductive History Menstrual Age of Menarche: 10 Questionnaire PHQ-9 Over the last 2 weeks, how often have you been bothered by any of the following problems? 1. Little interest or pleasure in doing things: not at all 2. Feeling down, depressed, or hopeless: not at all 3. Trouble falling or staying asleep, or sleeping too much: not at all 4. Feeling tired or having little energy: not at all 5. Poor appetite or overeating: not at all 6. Feeling bad about yourself - or that you are a failure or have let yourself or your family down: not at all 7. Trouble concentrating on things, such as reading the newspaper or watching television: not at all 8. Moving or speaking so slowly that other people could have noticed. Or the opposite - being so fidgety or restless that you have been moving around a lot more than usual: not at all 9. Thoughts that you would be better off or of hurting yourself in some way: not at all Total score: 0 Depression Screening Interpretation: Negative Depression Screening Done: Yes 49885 - PHQ-9 Billing: Yes Source: Developed by Drs. Avinash Hubbard, Brigid Bolanos, Nicola Connolly and colleagues, with an educational ming from [employer]. Thrive Questionnaire Date Thrive assessed: 01/04/24 I am a: Patient What is your living situation today?: I do not have a steady places to live I am temporarily staying with others Within the past 12 months, did the food you bought not last and you didn't have the money to get more?: Sometimes True Within the past 12 months, did you worry whether your food would run out before you got money to buy more?: Sometimes True Do you have trouble paying for medicines?: No Do you have trouble getting transportation to medical appointments?: Yes Do you have trouble paying your heating and electricity bill?: Yes Do you have trouble taking care of your child, family member or friend?: Yes Do you have trouble with day-to-day activities such as bathing, preparing meals, shopping, managing finances, etc.?: Yes Are you currently unemployed and looking for a job?: Yes Are you interested in more education?: No THRIVE Score: 5 AUDIT C Alcohol Use Questionnaire (AUDIT-C) 1. How often do you have a drink containing alcohol?: Monthly or less 2. How many drinks containing alcohol do you have on a typical day when you are drinking?: 1 or 2 3. How often do you have six or more drinks on one occasion?: Never Total Score: 1 Score Reviewed/Action Taken: No THERESE-7 AMB Questionnaire THERESE-7 Date THERESE - 7 assessed: 02/05/24 Feeling nervous, anxious, or on edge: 3 = Nearly every day Not being able to stop or control worryin = Not at all Worrying too much about different things: 0 = Not at all Trouble relaxin = Nearly every day Being so restless that it is hard to sit still: 1 = Several days Becoming easily annoyed or irritable: 0 = Not at all Feeling afraid as if something awful might happen: 0 = Not at all Total THERESE-7 score (0-4 normal; 5-9 mild; 10-14 moderate; 15-21 severe): 7 Source: Developed by Drs. Avinash Hubbard, Brigid Bolanos, Nicola Connolly and colleagues, with an educational ming from [employer]. THERESE-7 Assessment Billing THERESE-7 Assessment Tool: THERESE-7 Assessment 02081 Review of Systems Const Denies body aches, Denies fatigue, Denies fever(s), Denies frequent falls, Reports headache(s) (around menses) and Denies weakness Eyes Reports no additional complaints, Denies change in vision and Reports requires corrective lenses ENT Denies dysphagia, Denies dizziness, Denies facial pain, Reports headache(s) (around menses), Denies nasal congestion and Denies odynophagia Card Denies chest pain, Denies syncope, Denies irregular heart rhythm, Denies leg edema, Denies lightheadedness and Denies dyspnea Resp Denies cough and Denies dyspnea GI Denies constipation, Denies dysphagia, Denies dyspepsia, Denies diarrhea, Denies nausea, Denies odynophagia and Denies vomiting Denies urinary frequency, Denies dysuria, Denies urinary hesitancy and Denies urinary urgency Musc Denies back pain and Denies myalgias Skin/Breast Reports system reviewed and no additional complaints, except as documented Neuro Denies dizziness, Denies syncope, Denies frequent falls, Reports headache(s) (around menses) and Denies weakness Psych Reports no additional complaints Endo Denies fatigue Physical exam (Primary Care) Vital Signs: Last Vital Signs Pulse 58 02/05/24 15:06 BP 98/56 L 02/05/24 15:06 Pulse Ox 98 02/05/24 15:06 Oxygen Delivery Method Room Air 02/05/24 15:06 BMI result Body Mass Index 26.0 Tobacco/Smoking Status: Tobacco use Status Tobacco use date assessed 01/04/24 02/05/24 15:05 Patient Tobacco Use Status Never used Tobacco 02/05/24 15:05 Tobacco use type Cigarette 02/05/24 15:05 e-Cigarette/Vaping Use Never Used 02/05/24 15:05 PHQ-9: PHQ-9 Score PHQ-9: Total score 0 02/05/24 15:14 Depression Screening Interpretation: Negative Thrive Assessment: Date of Thrive Assessment Date Thrive assessed 01/04/24 02/05/24 15:05 Const General: cooperative, healthy appearing, comfortable and no acute distress Orientation/consciousness: patient oriented x3 HENMT Head: Yes normocephalic Ears: hearing grossly normal bilaterally, external ears normal, TM's normal bilaterally and EAC's normal General nose exam: Normal external nose present Face and sinus: Yes normal facial exam and Yes sinuses nontender Mouth: Normal oral and palatal mucosa present and tongue normal Throat: Yes posterior oropharynx normal Eyes General: appearance normal, both eyes and all related structures Conjunctivae: conjunctivae normal Pupils: Equal, round and reactive pupils present EOM: EOMs intact bilaterally and No Nystagmus present Neck Neck: Yes normal visual inspection, Yes full ROM and Yes no lymphadenopathy Chest Chest palpation & inspection: normal inspection of the chest Resp Effort & Inspection: normal respiratory effort Auscultation: clear to auscultation bilaterally, no crackles, no rales, no rhonchi, no wheezes and breath sounds present Cardio Rate: regular rate Rhythm: regular rhythm Peripheral pulses: radial pulses present and dorsalis pedis present GI Inspection: Yes normal to inspection and No Abdominal wall edema Palpation (GI): Soft to palpation, not firm and nontender Auscultation: normal bowel sounds Rectal Exam - Female: deferred General: Yes no CVA tenderness Back/Spine/Pelvis Other: Very mild tenderness to palpation of left lumbar paraspinous muscles Back: no CVA tenderness Skin General skin exam: no rashes or lesions noted Neuro General: patient oriented x3 Cranial nerves: Yes Equal, round and reactive pupils present, Yes Midline tongue present, Yes Ability to bilaterally elevate shoulders present and No Nystagmus present Gait exam (Neuro): Normal gait present Extrem General: Yes normal to inspection, Yes full ROM, No no pedal edema and No edema Psych Speech and movement: Normal speech and movement present Affect: normal affect Insight: Good insight present (Psych) Judgement: Good judgement present (Psych) Coding Level of Care Code Est Pt Prev Care 40-64y(21986) Diagnoses IBS (irritable bowel syndrome) K58.9 Bipolar 2 disorder F31.81 JACK positive R76.8 Hx of abnormal cervical Pap smear Z87.42 Severe depression F32.2 Severe anxiety F41.9 Annual physical exam Z00.00 Insomnia G47.00 Additional Codes THERESE-7 Assessment Billing - THERESE-7 Assessment Tool: THERESE-7 Assessment 12633 ([id number]) Assessment & Plan Assessment & Plan (1) IBS (irritable bowel syndrome): Comment: She will continue to monitor manage on her own Code(s): K58.9 - Irritable bowel syndrome, unspecified Category: Medical Plan: Not currently on medical management. Was referred to GI for routine colonoscopy and further evaluation. (2) Bipolar 2 disorder: Code(s): F31.81 - Bipolar II disorder Category: Medical Plan: Continue to follow with psychiatrist and therapist and continue on escitalopram. 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 Referral placed to Rheumatology at this time. (4) Hx of abnormal cervical Pap smear: Comment: 05/17/2021 Pap equals negative, negative HPV; 06/28/2022 Pap is negative with negative HPV. reviewed asccp guidelines and hpv. pt desires to complete hpv vaccine series. Code(s): Z87.42 - Personal history of other diseases of the female genital tract Category: Medical Plan: Continue to follow with gynecology was not due for Pap smear this year. (5) Severe depression: Code(s): F32.2 - Major depressive disorder, single episode, severe without psychotic features Category: Medical Plan: Continue to follow with psychiatrist and continue on current medication regimen feels her symptoms are well managed at this time. (6) Severe anxiety: Code(s): F41.9 - Anxiety disorder, unspecified Category: Medical Plan: Continue with psychiatrist and continue on present medication. (7) Annual physical exam: Code(s): Z00.00 - Encounter for general adult medical examination without abnormal findings Category: Medical Plan: Patient is not up-to-date with all routine screenings for her age. She was scheduled for colonoscopy in April 2024, is not due for Pap smear at this time and was referred to mammography by her sulfur burner provider. Blood work was ordered and is updated at this time was reviewed at this appointment. Advised patient to follow up at yearly exams or sooner if new problems arise. (8) Insomnia: Code(s): G47.00 - Insomnia, unspecified Category: Medical Plan: Patient has difficulty staying asleep and we will occasionally wake up in the middle the night with inability to fall back asleep. She would like a medication to be used as needed and we will trial trazodone 50 mg p.r.n. and follow up in 6 months. Offered sooner appointment however patient is currently back and forth in [place] and is unsure if she will be able to make an earlier appointment. Plan This note was constructed using voice recognition software. While every effort has been made to ensure accuracy and java grails developer, still areas may have been included sometimes these areas may affect the content or meeting of the given symptoms. Total time spent caring for the patient today was 30 minutes. This includes time spent before the visit reviewing the chart, time spent during the visit, and time spent after the visit and documentation. Orders: Orders Vitamin D 25-OH (D2 and D3) Today Z00.00 - Encounter for general adult medical examination without abnormal findings Referrals Rheumatology Referral R76.8 - Other specified abnormal immunological findings in serum Medications: New trazodone 50 mg PO BEDTIME PRN 30 tabs 0RF sleep Refilled cholecalciferol (vitamin D3) 25 mcg PO DAILY 90 tabs 2RF R79.89 - Other specified abnormal findings of blood chemistry
[2024-02-05 15:06] VITALS: BP 98/56; PULSE 58; O2SAT 98; BMI 26.0
== END 2024-02-05 16:07 | disposition home or self-care (01) ==
LOC: HO.HMCH 15:02
DX: Z00.00 Encounter for general adult medical examination without abnormal findings (principal); F31.81 Bipolar II disorder; K58.9 Irritable bowel syndrome, unspecified; R76.8 Other specified abnormal immunological findings in serum; Z87.42 Personal history of other diseases of the female genital tract; F41.9 Anxiety disorder, unspecified; G47.00 Insomnia, unspecified

== ENCOUNTER 2024-04-30 08:33 | Day surgery (SDC) | payer OTHER, SELFPAY ==
[2024-04-26 13:30] VITALS: BMI 26.0
--- NOTE | 2024-04-29 09:58 | HO.ANESPROP2 ---
HPI - Anesthesia Eval Consult details Narrative: 43yo F for Colonoscopy PMFSH Active Problems Active Problems: All Active Problems Insomnia (Acute) Trans-sexualism with homosexual history (Acute) Perimenopausal symptoms (Acute) Vaginismus (Acute) Vaginal itching (Acute) Breast cancer screening (Acute) Vaginal dryness (Acute) Annual physical exam (Acute) COVID-19 (Acute) Family history of colon cancer (Acute) Screening for tuberculosis (Acute) Vaccine counseling (Acute) COVID-19 (Acute) IBS (irritable bowel syndrome) (Acute) Myoma (Acute) Abnormal uterine bleeding (AUB) (Acute) Left knee pain (Acute) Tick bite (Acute) Fibroid uterus (Acute) Adult general medical exam (Acute) Endometrial polyp (Acute) Contact dermatitis (Acute) Pelvic pain (Acute) Skin rash (Acute) Left ankle pain (Acute) Impacted cerumen of both ears (Acute) Right hip pain (Acute) Hip pain, chronic (Acute) Elbow pain, right (Acute) Rash of face (Acute) Polyarthralgia (Acute) Bipolar 2 disorder (Acute) Chest discomfort (Acute) JACK positive (Acute) Hives (Acute) Hyperglycemia (Acute) Hx of abnormal cervical Pap smear (Acute) Overweight (BMI 25.0-29.9) (Acute) Severe depression (Acute) Severe anxiety (Acute) Vitamin D deficiency (Acute) Past Medical History Medical History (Updated 04/26/24 @ 13:27 by Leonila Monae RN) Anxiety Bipolar disorder IBS (irritable bowel syndrome) Vitamin A deficiency Depression Family History Family History Father Colon cancer Cancer of kidney Maternal Grandfather Colon cancer Surgical History Surgical History (Updated 04/26/24 @ 13:24 by Leonila Monae RN) Hx of dilation and curettage History of colposcopy History of Problems with Anesthesia: No Social History Social History Housing: Apartment Alcohol intake: never Patient Tobacco Use Status: Never used Tobacco Tobacco use type: Cigarette e-Cigarette/Vaping Use: Never Used Second Hand Smoke Exposure: No service: No Current occupational status: unemployed and student Current occupation: [employer] Cognitive needs: No Hearing needs: No Vision needs: Yes Meds Allergies Allergy/AdvReac Type Severity Reaction Status Date / Time latex Allergy Mild Anaphylaxis Verified 02/05/24 15:29 Sulfa (Sulfonamide Allergy Mild Hives Verified 02/05/24 15:29 Antibiotics) Exam Height,Weight and Vital Signs: Height 5 ft Weight 60.328 kg Assessment and Plan Assessment Anesthesia Assessment: Chart Reviewed Final Anesthetic Review History of Problems with Anesthesia: No
--- NOTE | 2024-04-30 08:45 | MHC.SHP ---
Pre-Procedural Eval Section A - 24 Hr Update-Section A only Date of Service: 04/30/24 Section B - Complete if H&P > 30 days Chief Complaint: Family history of malignant neoplasm of digestive Details of Present Illness: Vitamin A deficiency Depression Encounter to establish care (~03/19/21) Surgical History History of colposcopy Family History Father Colon cancer Cancer of kidney Maternal Grandfather Colon cancer Present Medications: see Short Stay Collaborative assessment Allergies: Allergies Allergy/AdvReac Type Severity Reaction Status Date / Time latex Allergy Mild Anaphylaxis Verified 02/05/24 15:29 Sulfa (Sulfonamide Allergy Mild Hives Verified 02/05/24 15:29 Antibiotics) Review of Systems Review of Systems Comment: Ten point ROS negative Exam Exam Comment: Gen appear: No acute distress HEENT: no icterus Chest: No overt resp distress Abd: soft, nontender, nondistended Psych: Stable affect, answering questions appropriately Neuro: A/Ox3 noted to move all extremities spontaneously Ext: no peripheral edema Plan Diagnosis/Plan: Unchanged I have reviewed the history and physical and performed a pertinent physical examination on my patient. No changes have occurred unless specified. Time Spent With Patient Time: Total time managing care of this patient today ____ minutes.
--- OUTSIDE RECORDS SUMMARY | 2024-04-30 08:55 | XMS_ITS | Clinical Summary ---
Author Organization [facility] r Address [address] Main Number: [phone] (24/10) [place] [address] Care Team Providers Care Pharmacy Operations Manager Name Role Phone Maame Sawyer MD Unavailable [phone] Allergies Active Allergy Reactions Criticality Noted Date Comments Insect Venom 08/28/2020 Mosquito bites more prounounced Latex Anaphylaxis High 08/28/2020 Sulfa (Sulfonamide Antibiotics) Hives 08/28/2020 Medications Medication Sig Dispensed Refills Start Date End Date Status fluticasone propionate (FLONASE) 50 mcg/actuation nasal sprayIndications:Acute nasopharyngitis 1 spray into each nostril daily. 15.8 mL 01/27/2023 Active pseudoephedrine-guaife nesin (MUCINEX D) 60-600 mg per tabletIndications:Acut e nasopharyngitis Take 1 tablet by mouth every 12 (twelve) hours. 28 tablet 01/27/2023 Active carbamide peroxide (DEBROX) 6.5 % otic solutionIndications:Ex cessive cerumen in both ear canals Administer 5 drops into both ears 2 (two) times a day as needed. 15 mL 07/31/2023 Active Active Problems Problem Noted Date Diagnosed Date Right axillary swelling 08/28/2020 Assessment & Plan (08/28/2020 4:45 PM EDT): Reviewed mammo/US, R axillary swelling stable in 10/2019, recommended 6 mo followup Referral placed for pt now Vitamin D deficiency 10/23/2013 Assessment & Plan (08/28/2020 4:44 PM EDT): Refilled Vit D PTSD (post-traumatic stress disorder) 07/31/2013 Bipolar 2 disorder ([facility]) 05/10/2012 Overview (08/26/2022): Was in a light study at [place] in 2009. Assessment & Plan (08/28/2020 4:39 PM EDT): Pt not on current meds; has history of bipolar type 2, thinks she may need to be on medications now with the passing of her father I am hesitant on prescribing pt SSRI given history of bipolar d/o not knowing her full psych history as she is new patient and limited time today to delve in those Appt made next week for BHI, note sent , may need expedited med prescriber appt Cervical intraepithelial neoplasia grade 2 04/13 Overview (08/25/2022): 04/2012: ASCUS with positive HPV, needs colpo Colpo bx with areas of likely mod dysplasia. Refer to surface grinding machine hand Pt opts for expectant management, repeat colpo 10/13 with Customer Success Intern 09/27/12 Colpo CBX acute and chronic cervicitis Repeat pap and hpv in [address] Trujillo 10/01/13 Overdue for pap letter sent, 10/23/13- pap done in family medicine. shows ascus, hpv neg, needs repeat colpo, email sent with detail to patient Melina Valdez MD, 10/30/2013, 2:04 PM colpo done 12/2013: squamous atypia in both biopsies and neg ECC. Nl PAP 2015 Pap 10/2019: neg cyto, no hrhpv Assessment & Plan (08/28/2020 4:41 PM EDT): reviwed las tpap 10/20: neg cyto, no hrhpv, can likely space with next pap in 10/2022 FH: rheumatoid arthritis 03/04/2011 IBS (irritable bowel syndrome) 11/03/2010 Migraine with aura and witho ut status migrainosus, not intractable 01/15/2009 Assessment & Plan (08/28/2020 4:44 PM EDT): Not discussed during this appt, will fu with pt at next visit Immunizations Name Administration Dates Next Due Hepatitis A 10/30/2009,01/15/2009 Hepatitis B, Adult 02/18/2013,04/05/2012, 011 Influenza vaccine (FLULAVAL/FLUZONE/FLUARIX TRIV) intramuscular PF syringe (>=6 months and older) 01/06/2015 Influenza, Seasonal, Injecta ble, with Preservative 01/03/2017,02/18/2013,04/05/2012,01/15 TDAP 01/15/2009 Td unspecified, historical 02/12/2019 Typhoid Inactivated IM 05/05/2015 influenza vaccine (FLUMIST Q UAD) intranasal (2 years to <19 y.o) 12/27/2013 Family History Medical History Relation Name Comments Cancer Father Diabetes Mellitus Maternal Aunt Hypertension Maternal Aunt Colon cancer Maternal Grandfather Heart attack Maternal Grandfather Cancer Mother Cancer Paternal Grandmother Relation Name Status Comments Father (Age 75) of bl adder/kidney cancer; also with colon cancer Maternal Aunt Maternal Grandfather Other 68 of colon cancer Mother Paternal Grandmother Social History Tobacco Use Types Packs/Day Years Used Date Smoking Tobacco: Never Assessed Alcohol Use Standard Drinks/Week Comments Yes 0 (1 standard drink = 0.6 oz pur e alcohol) Sex and Gender Information Value Date Recorded Sex Assigned at Female 01/27/2023 8:56 AM EDT Gender Identity Female 01/27/2023 8:56 AM EDT Sexual Orientation Don't know 08/31/2022 11 :31 PM EDT Last Filed Vital Signs Vital Sign Reading Time Taken Comments Blood Pressure 91/58 07/31/2023 9:03 AM EDT Pulse 58 07/31/2023 9:03 AM EDT Temperature 36.8 ??C (98.3 ??F) 07/31/2023 9:03 AM ED T Respiratory Rate 18 07/31/2023 9:03 AM EDT Oxygen Saturation 98% 07/31/2023 9:03 AM EDT Inhaled Oxygen Concentration - - Weight 59.1 kg (130 lb 3.2 oz) 07/31/2023 9:03 A M EDT Height - - Body Mass Index - - Plan of Treatment Health Maintenance Due Date Last Done Comments Colonoscopy FOBT- Positive 1978 Colonoscopy 1978 Colorectal Cancer Screening 1978 Diabetes Screening 1978 FOBT 1978 HIV Lifetime Screening 1978 Hepatitis B sAg Lifetime Screening 1978 Hepatitis C Antibody Lifetime Screening 1978 Sigmoidoscopy 1978 THRIVE SCREENING 1978 Oral Health Screen 02/18/1979 HEIP Disability Screen 09/19/1983 BEHAVIORAL HEALTH SCREEN 1990 Psych Substance Use Screen 1990 Relationship Safety Screening 1993 Cervical Cancer Screening 09/19/1999 Colposcopy 09/19/1999 PAP SMEAR 09/19/1999 Pap + HPV 09/19/1999 MAMMOGRAM 10/22/2021 10/22/2020 COVID-19 Vaccine (3 - season) 2023 08/20/2020, 07/23/2020 INFLUENZA VACCINE (#1) 2023 3, 04/10/2021, 01/03/2017, Additional history exists LIPID PANEL 10/15/2024 10/16/2019 Zoster Vaccine (1 of 2) 2028 DTAP/TDAP VACCINE (3 - Td or Tdap) 02/12/2029 02/12/2019, 01/15/2009 HPV VACCINES Aged Out No longer eligi ble based on patient's age to complete this topic IPV VACCINES Aged Out No longer eligi ble based on patient's age to complete this topic Pneumonia Vaccine 0-64 Aged Out No lo nger eligible based on patient's age to complete this topic ROTAVIRUS VACCINES Aged Out No longer eligible based on patient's age to complete this topic Procedures Procedure Name Priority Date/Time Associated Diagnosis Comments BI MAMMO DIGITAL TOMOSYNTHESIS DIAGNOSTIC BILATERAL Routine 10/22/2020 1:07 PM EDT Abnormal mammogram of right breast from Last 3 Months or Most Recently Relevant to Health Maintenance Results * (ABNORMAL) Digital Tomosynthesis Diagnostic Mammogram Bilateral (10/22/2020 1:07 PM EDT) Anatomical Region Laterality Modality Breast Bilateral Mammography 10/22/2020 12:4 9 PM EDT Impressions 10/22/2020 1:30 PM EDT Probable benign accessory breast tissue in the right axillary region corresponding the area of concern as indicated by the patient and for which six-month follow- up right diagnostic mammography and right breast ultrasound would be recommended at this time. BI-RADS 3 - Probably Benign Finding Recommendation: Short interval follow-up right breast diagnostic mammogram in 6 months. Right breast ultrasound in 6 months. I personally reviewed the study and agree with the dictated report. Electronically signed by: Digna Kim MD Signed date and time: 10/22/2020 1:30 PM Narrative 10/22/2020 1:30 PM EDT EXAMINATION: BILATERAL DIGITAL DIAGNOSTIC TOMOSYNTHESIS MAMMOGRAM AND RIGHT AXILLARY ULTRASOUND INDICATION: Two year follow-up of probable benign tender right axillary asymmetry, family history of breast cancer in paternal great aunt at unspecified age COMPARISON: Comparison to outside imaging dated 10/16/2019 and 12/19/2018. TECHNIQUE: Bilateral full field digital mammography and bilateral digital breast tomosynthesis was performed and interpreted with the aid of CAD software. Subsequently, ultrasound of the right axilla in the area of concern on prior imaging was performed. COMPOSITION: The breast tissue is heterogeneously dense, which may obscure small masses. FINDINGS: Right axillary asymmetry is again seen and allowing for differences in positioning and technique between studies, appears more prominent. This area was further evaluated with ultrasound. No areas of architectural distortion or suspicious grouped microcalcifications are appreciated in either breast. Ultrasound of the right axilla in the area of concern on prior imaging identified a focal 1.4 cm patch of heterogeneous breast tissue suggestive of asymmetric breast tissue. No solid suspicious mass or cystic areas seen. Given that this area appears slightly more pronounced on mammography, although this is most likely related to hormonal fluctuations, six-month follow-up right diagnostic mammography right breast ultrasound would be recommended at this time. Results were discussed directly with the patient the time of imaging. Procedure Note Digna Kim MD - 10/22/2020 EXAMINATION: BILATERAL DIGITAL DIAGNOSTIC TOMOSYNTHESIS MAMMOGRAM AND RIGHT AXILLARYULTRASOUND INDICATION: Two year follow-up of probable benign tender right axillary asymmetry,family history of breast cancer in paternal great aunt at unspecifiedage COMPARISON: Comparison to outside imaging dated 10/16/2019 and 12/19/2018. TECHNIQUE: Bilateral full field digital mammography and bilateral digital breasttomosynthesis was performed and interpreted with the aid of CAD software.Subsequently, ultrasound of the right axilla in the area of concern onprior imaging was performed. COMPOSITION: The breast tissue is heterogeneously dense, which may obscure smallmasses. FINDINGS: Right axillary asymmetry is again seen and allowing for differences inpositioning and technique between studies, appears more prominent. Thisarea was further evaluated with ultrasound. No areas of architecturaldistortion or suspicious grouped microcalcifications are appreciated ineither breast. Ultrasound of the right axilla in the area of concern on prior imagingidentified a focal 1.4 cm patch of heterogeneous breast tissue suggestiveof asymmetric breast tissue. No solid suspicious mass or cystic areasseen. Given that this area appears slightly more pronounced on mammography,although this is most likely related to hormonal fluctuations, [id number] right diagnostic mammography right breast ultrasound would berecommended at this time. Results were discussed directly with the patient the time of imaging. IMPRESSION: Probable benign accessory breast tissue in the right axillary regioncorresponding the area of concern as indicated by the patient and forwhich six-month follow-up right diagnostic mammography and right breastultrasound would be recommended at this time. BI-RADS 3 - Probably Benign Finding Recommendation: Short interval follow-up right breast diagnostic mammogramin 6 months. Right breast ultrasound in 6 months. I personally reviewed the study and agree with the dictated report. Electronically signed by: Digna Kim MD Signed date and time: 10/22/2020 1:30 PM Shelby Hoffman MD IMG MAMMOGRAPHY [facility]HY from Last 3 Months or Most Recently Relevant to Health Maintenance Care Teams Pharmacy Operations Manager Relationship Specialty Start Date End Date Maame Sawyer MD [address] [place] [id number] PCP - Insurance 08/19/22
--- OUTSIDE RECORDS SUMMARY | 2024-04-30 08:55 | XMS_ITS | Clinical Summary ---
Author Organization [facility] Address [address] [facility], [address] [place] [address] Care Team Providers Care Director Of Assisted Living Name Role Phone Maame Fried MD Primary Care Provider [phone] Allergies Active Allergy Reactions Criticality Noted Date Comments Latex Anaphylaxis,Swelling High 03/26/2009 Sulfa (Sulfonamide Antibiotics) Hives High 12/24/2009 sulfamethoxasole allergy Medications atovaquone-prog uaniL (MALARONE) 250-100 mg tabletIndicatio ns:Travel advice encounter 1 PO daily starting 1-2 days before entering malaria zones and through 7 days after leaving malaria zones. 30 tablet 05/06/2022 Active azithromycin (ZITHROMAX) 500 mg tabletIndicatio ns:Travel advice encounter For severe travelers' diarrhea, 1 PO daily up to 3 days. 3 tablet 05/06/2022 Active Active Problems No known active problems Immunizations Name Administration Dates Next Due Hepatitis A, adult vaccine (Havrix/Vaqta) 2009,01/15/2009 Hepatitis B, adult vaccine 02/18/2013,04/05/2012 ,03/04/2011 Influenza Vaccine - STANDARD - MDV (FLUZONE/AFLURIA) 04/05/2012 Influenza Vaccine - STANDARD - PF (FLUZONE/FLUARIX/FLULAVAL/AFLURIA) 01/03/2017,02/18/2013,01/15/2009 Influenza Vaccine - STANDARD - SDV (FLUZONE/FLUARIX/FLULAVAL/AFLURIA) 01/06/2015,12/27/2013 TDAP (Boostrix/Adacel) 01/15/2009 Td(adult) unspecified formulation 02/12/2019 influenza, unspecified formulation 01/06/2015 typhoid Vi capsular polysacc haride vaccine (ViCPs) (Typhim ) 05/10/2022,05/05/2015 yellow fever vaccine 05/10/2022 Social History Tobacco Use Types Packs/Day Years Used Date Smoking Tobacco: Never Assessed Comments Unknown Sex and Gender Information Value Date Recorded Sex Assigned at Not on file Legal Sex Female 1:34 PM EST Gender Identity Not on file Sexual Orientation Not on file Plan of Treatment Health Maintenance Due Date Last Done Comments Hepatitis C Screening 1996 Periodic Health Exam 1996 PAP Screening 2008 Breast Cancer Screening 2018 Colon Cancer Screening 09/19/2023 Influenza (Seasonal) 11/02/2023 01/03/2017, 01/06/2015, 01/06/2015, Additional history exists CoVid-19 Vaccine ( season) 2023 08/20/2020, 07/23/2020 Tetanus Diphtheria and Pertussis Vaccines (TD and TDaP) (3 - Td or Tdap) 02/12/2029 02/12/2019, 01/15/2009 HIB Vaccines Aged Out No longer eligi ble based on patient's age to complete this topic HPV Vaccines Aged Out No longer eligi ble based on patient's age to complete this topic Meningococcal Vaccine Aged Out No anahi adrian eligible based on patient's age to complete this topic Pneumococcal Vaccine: Pediatrics (0 to 5 Years) and At-Risk Patients (6 to 64 Years) Aged Out No longer eligible based on patient's age to complete this topic Insurance [facility] [place] [id number] [place] [id number] [place] [address] [place] [address] [place] [address] [place] [address] [address] [place] [phone] Care Teams Director Of Assisted Living Relationship Specialty Start Date End Date Maame Fried MD [address] [facility] [place] [address] PCP - General 04/28/22
--- OUTSIDE RECORDS SUMMARY | 2024-04-30 08:55 | XMS_ITS | Encounter Summary ---
Author Organization [facility] ([facility]) Address [address] [place] [address] Care Team Providers Care Ui Engineer Name Role Phone Unavailable Primary Care Provider Unavailabl e Reason for Visit * Reason Comments EAR PROBLEM HEADACHE Encounter Details Date Type Department Care Team (Late st Contact Info) Description 04/27/2024 8:21 AM EST - 04/27/2024 9:23 AM EST Emergency Emergency Department [address] [place] [address] Fatimah Gross NP [address] [place] [address] EAR PROBLEM; HEADACHE Discharge Disposition: Home Social History Tobacco Use Types Packs/Day Years Used Date Smoking Tobacco: Never Assessed Comments Unknown Sex and Gender Information Value Date Recorded Sex Assigned at Not on file Legal Sex Female 2:17 PM EDT Gender Identity Not on file Sexual Orientation Not on file documented as of this encounter Last Filed Vital Signs Vital Sign Reading Time Taken Comments Blood Pressure 102/72 04/27/2024 9:22 AM EST Pulse 62 04/27/2024 9:22 AM EST Temperature 36.9 ??C (98.4 ??F) 04/27/2024 9:22 AM ES T Respiratory Rate 18 04/27/2024 9:22 AM EST Oxygen Saturation 97% 04/27/2024 9:22 AM EST Inhaled Oxygen Concentration - - Weight 59 kg (130 lb) 04/27/2024 8:11 AM EST Height - - Body Mass Index - - documented in this encounter Discharge Instructions * Attachments The following attachments cannot be sent through Care Everywhere. * Ear Irrigation (Estonian) * Earwax Buildup Adult (Estonian) documented in this encounter ED Notes * Fatimah Gross NP - 04/27/2024 9:23 AM EST ED Visit Chief Complaint Patient presents with EAR PROBLEM HEADACHE Vitals: 04/27/24 0811 04/27/24 0922 BP: 94/58 102/72 Pulse: 66 62 Resp: 18 18 Temp: 97.7 ??F (36.5 ??C) 98.4 ??F (36.9 ??C) TempSrc: Oral Oral SpO2: 96% 97% Weight: 130 lb (59 kg) This is a 43-year-old none smoking female with no significant past medical history who arrives today as a result of cerumen impaction. She states she has been using olive oil to help with the cerumenimpaction. She has not had any fevers or chills. She does have a headache. She feels that the cerumen impaction is giving her a headache. She is not here for treatment of her headache. This is not the worst headache of her life. She has had headaches of this nature in the past. She denies any nausea, vomiting, diarrhea, abdominal pain, urinary frequency, burning on urination, cough, shortness of breath, chest pain, palpitations, or any ill contacts Review of Systems HENT: Difficulty hearing, cerumen impaction All other systems reviewed and are negative. Physical Exam Vitals and nursing note reviewed. Constitutional: Appearance: Normal appearance. She is normal weight. HENT: Right Ear: There is impacted cerumen. Left Ear: There is impacted cerumen. Cardiovascular: Rate and Rhythm: Normal rate and regular rhythm. Pulses: Normal pulses. Heart sounds: Normal heart sounds. Pulmonary: Effort: Pulmonary effort is normal. Breath sounds: Normal breath sounds. Neurological: Mental Status: She is alert. No family history on file. No past surgical history on file. No past medical history on file. There is no problem list on file for this patient. ED Course: Cerumen impaction Procedures LAB DONE No results found for this visit on 04/27/24. Lab test results reviewed Medical Decision Making Medical Decision Making Nursing notes reviewed and agreed with In summary this is a 43-year-old non-smoking female with a medical history of bipolar PTSD migraines who arrives today for an evaluation of cerumen impaction which is causing a headache. External records reviewed: Patient's preious ED visits and outpatient medical records were reviewed. Her last visit was with urgent care on 07/31/2023. She was also seen for urinary complaint on 10/09/2023. Independent Interpertations Not applicable Test/Treatment/Hospitalizations that were considered were considered CBC and CHEM profile as a result of a kidney function, anemia, and elevated white count. Chronic conditions affecting care include cerumen impaction Acute Conditions Cerumen impaction Medications were considered and not prescribed Tylenol/ibuprofin Discussion with other providers Not Applicable Social determinants of health affected this patient's illness in care as they experience one or more of the following: Age health care literacy, unable to see PCP, economic status Informants Not Applicable Escalation of care including admission or observation was considered however unnecessary at this time. Patient's vital signs are stable. Patient is nontoxic and appearing. They are able to be managedas an outpatient. Differential diagnosis Differential diagnosis for cerumen impaction may include but not limited to otitis externa, narrow ear canal, skin disease, autoimmune disease, tinnitus, dizziness, eczema, allergies, otitis media Plan: This is a 43-year-old nonsmoking female with medical history of bipolar PTSD migraines who arrives today as a result of ear impaction. This is severely impacted. She has been using olive oil. We did try any ear lavage which was unsuccessful. She was advised to use Debrox and return in the next several days or be seen by her primary care physician for cerumen removal. The Plan for this patient is to be discharged home with close follow up to there PCP. Therefore no further escalation of care is necessary or warranted at this time. The patient's condition is stable and appropriate for discharge. I did discuss with the patient concerning signs and symptoms to watch for and a low threshold to return to the emergency department if they were to occur.Written instructions were given. Work note was given This dictation was made using voice recognition software. Please excuse any errors in flight operations coordinator Final diagnoses: Bilateral impacted cerumen documented in this encounter Miscellaneous Notes * Triage Note - Loree Rogers RN - 04/27/2024 8:09 AM EST Patient presents with c/o headache 5/10 and ears blocked excessive wax . Afebrile + sinus build up Neg N/V Denies visual changes documented in this encounter Plan of Treatment Pending Results Name Type Priority Associated Diagnoses Date /Time URINE TEST Lab STAT Bilateral impacted cerumen 04/27/2024 8:14 AM EST Scheduled Orders Name Type Priority Associated Diagnoses Orde r Schedule URINE TEST Lab STAT Bilateral impacted cerumen STAT for 1 Occurrences starting 04/27/2024 until 04/27/2024 documented as of this encounter Procedures Procedure Name Priority Date/Time Associated Diagnosis Comments REMOVAL IMPACTED CERUMEN USING IRRIGATION/LAVAGE, UNILATERAL TECH 04/27/2024 8:47 AM EST Bilateral impacted cerumen documented in this encounter Visit Diagnoses Diagnosis Bilateral impacted cerumen Impacted cerumen documented in this encounter
--- OUTSIDE RECORDS SUMMARY | 2024-04-30 08:55 | XMS_ITS | Clinical Summary ---
Author Organization [facility] ([facility]) Address [address] [place] [address] Care Team Providers Care Computer Hardware Developer Name Role Phone Unavailable Primary Care Provider Unavailabl e Allergies Active Allergy Reactions Criticality Noted Date Comments Latex Rash 10/09/2023 Sulfa Antibiotics Rash 10/09/2023 Encounters Date Type Department Care Team Description 04/27/2024 8:21 AM EST - 04/27/2024 9:23 AM EST Emergency Emergency Department [address] [place] [address] Fatimah Gross NP EAR PROBLEM; HEADACHE Discharge Disposition: Home from Last 3 Months Social History Tobacco Use Types Packs/Day Years Used Date Smoking Tobacco: Never Assessed Comments Unknown Sex and Gender Information Value Date Recorded Sex Assigned at Not on file Legal Sex Female 2:17 PM EDT Gender Identity Not on file Sexual Orientation Not on file Last Filed Vital Signs Vital Sign Reading [...] Health Maintenance Due Date Last Done Comments MMR VACCINES (1 of 1 - Standard series) 09/19/1979 PHQ2 Annual Screen 1990 HIV Screening 09/19/1991 VARICELLA VACCINES (1 of 2 - 13+ 2-dose series) 09/19/1991 HEPATITIS B VACCINES (1 of 3 - 19+ 3-dose series) 1997 PAP SMEAR 09/19/1999 BREAST CANCER SCREENING 10/22/2021 10/22/2020, 10/15 Annual FIT Colon Cancer Screening 09/19/2023 COLON CANCER SCREENING 5 YEAR SIGMOIDOSCOPY 09/19/2023 Cologuard (sDNA-FIT) 09/19/2023 Colonoscopy 09/19/2023 Colorectal Cancer Screening 09/19/2023 Influenza Vaccine (#1) 2023 7, 01/06/2015, 01/06/2015, Additional history exists COVID-19 Vaccine (3 - season) 2023 08/20/2020, 07/23/2020 Full Lipid Panel Testing 10/15/2024 10/16/2019 Shingrix Vaccine (1 of 2) 2028 DTAP/TDAP/TD VACCINES (3 - Td or Tdap) 02/12/2029 02/12/2019, 01/15/2009 HEPATITIS A VACCINES Aged Out No long er eligible based on patient's age to complete this topic HPV VACCINES Aged Out No longer eligi ble based on patient's age to complete this topic MENINGOCOCCAL VACCINE Aged Out No anahi adrian eligible based on patient's age to complete this topic Pneumococcal Vaccine Aged Out No long er eligible based on patient's age to complete this topic Procedures Procedure Name Priority Date/Time Associated Diagnosis Comments REMOVAL IMPACTED CERUMEN USING IRRIGATION/LAVAGE, UNILATERAL TECH 04/27/2024 8:47 AM EST Bilateral impacted cerumen from Last 3 Months Insurance [facility]
--- OUTSIDE RECORDS SUMMARY | 2024-04-30 08:55 | XMS_ITS | Referral Summary ---
Author Organization [facility] r Address [address] Main Number: [phone] (24/10) [place] [address] Care Team Providers Care Wireless Watcher Name Role Phone Maame Sawyer MD Unavailable [phone] Allergies Active Allergy Reactions Criticality Noted [...] (post-traumatic stress disorder) 07/31/2013 Bipolar 2 disorder ([facility]) 05/10/2012 Overview (08/26/2022): Was in a light study at [place] in 2009. Assessment & Plan (08/28/2020 4:39 [...] areas of likely mod dysplasia. Refer to brazer crawler torch Pt opts for expectant management, repeat colpo 10/13 with Superintendent Drilling And Production 09/27/12 Colpo CBX acute and chronic cervicitis [...] intranasal (2 years to <19 y.o) 12/27/2013 Social History Tobacco Use Types Packs/Day Years [...] Mass Index - - Plan of Treatment Not on file Procedures Procedure Name Priority Date/Time Associated Diagnosis [...] is most likely related to hormonal fluctuations, [id number] right diagnostic mammography right breast ultrasound would [...] 1:30 PM Shelby Hoffman MD IMG MAMMOGRAPHY ORDE RABLES from Last 3 Months or Most Recently Relevant to Health Maintenance Care Teams Wireless Watcher Relationship Specialty Start Date End Date Maame Sawyer MD [address] [facility] [address] [place] [address] PCP - Insurance 08/19/22
--- OUTSIDE RECORDS SUMMARY | 2024-04-30 08:55 | XMS_ITS | Encounter Summary ---
Author Organization [facility] r Address [address] Main Number: [phone] (24/10) [place] [address] Care Team Providers Care Wire Wheeler Name Role Phone Maame Sawyer MD Unavailable [phone] Reason for Visit * Reason Comments Med Change Request Encounter Details Date Type Department Care Team (Late st Contact Info) Description 03/20/2023 Refill [facility] [address] [place] [address] Radha Burns PA-C [address] [place] [address] Acute nasopharyngitis Social History Tobacco Use Types Packs/Day Years Used Date Smoking Tobacco: Never Assessed Alcohol Use Standard Drinks/Week Comments Yes 0 (1 standard drink = 0.6 oz pur e alcohol) Sex and Gender Information Value Date Recorded Sex Assigned at Female 01/27/2023 8:56 AM EDT Gender Identity Female 01/27/2023 8:56 AM EDT Sexual Orientation Don't know 08/31/2022 11 :31 PM EDT documented as of this encounter Plan of Treatment Not on file documented as of this encounter Visit Diagnoses Diagnosis Acute nasopharyngitis Acute nasopharyngitis (common cold) documented in this encounter Care Teams Wire Wheeler Relationship Specialty Start Date End Date Maame Sawyer MD [address] [place] [id number] PCP - Insurance 08/19/22 documented as of this encounter
--- OUTSIDE RECORDS SUMMARY | 2024-04-30 08:55 | XMS_ITS | Encounter Summary ---
Author Organization [facility] r Address [address] [facility] [address] [facility] [address] Main Number: [phone] (24/10) [place] [address] Care Team Providers Care Geological Specialist Name Role Phone Maame Sawyer MD Unavailable [phone] Encounter Details Date Type Department Care Team (Late st Contact Info) Description 01/27/2023 Orders Only [facility] [address] [place] [phone] Radha Burns PA-C [address] [place] [address] Acute nasopharyngitis Social History Tobacco Use Types [...] on file documented as of this encounter Procedures Procedure Name Priority Date/Time Associated Diagnosis Comments RAPID STREP SCREEN STAT 01/27/2023 10 :27 AM EDT Acute nasopharyngitis THROAT CULTURE 01/27/2023 10:27 AM EDT documented in this encounter Results * Throat Culture (01/27/2023 10:27 AM EDT) Specimen Description Throat Swab [facility] Results NO BETA HEMOLYTIC STREPTOCOCCI ISOLATED 01/29/2023 9:20 AM EDT [facility] THROAT SWAB / Unknown 01/27/2023 10:27 AM EDT 01/27/2023 10:30 AM EDT Radha Palumbolexie Burns PA-C MICROBIOLOGY - GENERAL ORDERABLES [facility] CLIA [id number] [address] [place] [address], * *STAT - Rapid Screen For Group A Strep Antigen (01/27/2023 10:27 AM EDT) Specimen Description THROAT [facility] Results NEGATIVE FOR THE PRESENCE OF GROUP A STREPTOCOCCAL ANTIGEN. PLEASE NOTE: A NEGATIVE RAPID STREPTOCOCCAL ANTIGEN TEST DOES NOT RULE OUT THE POSSIBILITY OF STREPTOCOCCAL INFECTION. PLEASE SEE THROAT CULTURE RESULTS. 01/27/2023 10:29 AM EDT [facility] SPECIMEN FROM THROAT / Unknown 01/27/2023 10:27 AM EDT 01/27/2023 10:28 AM EDT Radha Palumbolexie Burns PA-C MICROBIOLOGY - GENERAL ORDERABLES Performing Organization Address City/[facility]/ZIP Co de Phone Number [facility] CLIA#[id number] [address] [place] [address] documented in this encounter Visit Diagnoses Diagnosis Acute nasopharyngitis Acute nasopharyngitis (common cold) documented in this encounter Additional Health Concerns Infection Onset Date Last Indicated Resolved Time COVID-19 Rule Out 01/27/2023 01/27/2023 01/27/2023 8:43 PM EDT documented as of this encounter Care Teams Geological Specialist Relationship Specialty Start Date End Date Maame Sawyer MD [address] [place] [phone] PCP - Insurance 08/19/22 documented as of this encounter
--- OUTSIDE RECORDS SUMMARY | 2024-04-30 08:55 | XMS_ITS | Clinical Summary ---
Author Organization [facility] Address [phone] [place] [address] Care Team Providers Care Assistant Store Manager Trainee Name Role Phone Unknown, Unknown Primary Care Provider Shyla leonardo Allergies Active Allergy Reactions Criticality Noted Date Comments Insect Venom Low 08/28/2020 Mosquito bites more prounounced Latex Swelling,Anaphylaxis High 03/26/2009 Sulfa (Sulfonamide Antibiotics) Hives High 12/24/2009 sulfamethoxasole allergy Medications Medication Sig Dispensed Refills Start Date End Date Status cholecalciferol (VITAMIN D3) 25 MCG (1,000 unit) tablet Take 2,000 Units by mouth. 12/30/2016 Active Active Problems No known active problems Immunizations Name Administration Dates Next Due COVID-19 (Pre-01/23) Moderna Vaccine, mRNA, PF 08/20/2020,07/23/2020 Hepatitis A, Adult 10/30/2009,01/15/2009 Hepatitis B Adult 02/18/2013,04/05/2012,03/04/20 11 Influenza Quadrivalent Intranasal 01/06/2015, Influenza Trivalent w/ Prese rvative IM 01/03/2017,02/18/2013,04/05/2012,2008 Td (Adult),Absorbed,Preserva tive Free,Lf Unspecified 02/12/2019 Tdap 01/15/2009 Typhoid, ViCPs 05/05/2015 Social History Tobacco Use Types Packs/Day Years Used Date Smoking Tobacco: Light Smoker Smokeless Tobacco: Never Alcohol Use Standard Drinks/Week Comments Yes 0 (1 standard drink = 0.6 oz pur e alcohol) Very rarely. Education Answer Date Recorded Are you interested in more education? Not on batool e 07/28/2022 Are you concerned about learning? Not on file 07/28/2022 No 07/28/2022 No 07/28/2022 Digital Access Answer Date Recorded No 08/29/2022 No 08/29/2022 No 08/29/2022 Reliable internet access at home? Not on file 08/29/2022 Device with a working camera? Not on file Sex and Gender Information Value Date Recorded Sex Assigned at Female 10/23/2020 11:08 AM EDT Gender Identity Non-binary 10/23/2020 11:08 AM EDT Sexual Orientation Not on file Last Filed Vital Signs Vital Sign Reading Time Taken Comments Blood Pressure 147/82 01/15/2021 2:05 PM EDT Pulse 60 01/15/2021 2:05 PM EDT Temperature 36.4 ??C (97.5 ??F) 01/15/2021 2:05 PM ED T Respiratory Rate 18 01/15/2021 2:05 PM EDT Oxygen Saturation 100% 01/15/2021 2:05 PM EDT Inhaled Oxygen Concentration - - Weight - - Height - - Body Mass Index - - Plan of Treatment Health Maintenance Due Date Last Done Comments LIPID PANEL 1978 DEPRESSION SCREENING 1990 SMOKING Hx and SMOKELESS TOBACCO SCREENING 09/19/1991 HEPATITIS B SCREENING 1996 HIV ONE-TIME SCREENING (18-65 YEARS) 1996 PNEUMOCOCCAL VACCINES (0-49 years) (1 of 2 - PCV) 1997 PAP SMEAR 09/28/2004 09/28/2001 MAMMOGRAM 10/22/2022 10/22/2020, 10/01, 12/19/2018 COLOGUARD 09/19/2023 COLONOSCOPY 09/19/2023 COLORECTAL CANCER SCREENING 09/19/2023 FIT TEST 09/19/2023 FOBT 09/19/2023 SIGMOIDOSCOPY 09/19/2023 VIRTUAL COLONOSCOPY 09/19/2023 INFLUENZA VACCINE (#1) 2023 7, 01/06/2015, 12/27/2013, Additional history exists COVID-19 VACCINE ( season) 2023 08/20/2020, 07/23/2020 Adult Td,Tdap Booster 02/12/2029 02/12/2019, 009 HEPATITIS A VACCINES Aged Out 10/30/2009, 01/16/20 09 No longer eligible based on patient's age to complete this topic HEPATITIS B VACCINES Completed 02/18/2013, 04/05/2012, 03/04/2011 HEPATITIS C SCREENING Completed 10/16/2019 HIB VACCINES Aged Out No longer eligi ble based on patient's age to complete this topic MENINGOCOCCAL VACCINES (ACWY) Aged Out No longer eligible based on patient's age to complete this topic Medical Devices Not on file Procedures Procedure Name Priority Date/Time Associated Diagnosis Comments PAP TEST Routine 09/28/2001 12:00 AM EDT from Last 3 Months or Most Recently Relevant to Health Maintenance Results * Pap Smear (09/28/2001 12:00 AM EDT) 09/28/2001 Narrative [facility] - 10/29/2001 2:44 PM EDT Accession Number: ??[id number] ? Report Status: ??Final Type: ??Cytology ? Cytology Report: ??[id number] ? DATE TAKEN: ?SEP 02 ?ACCESSIONED ON: OCT 02 at 11:15 ? CLINICAL DATA: ?QUESTION EXPOSURE TO KATRINA ? Menstrual Status: {None Provided} ? Date of last Menstrual Period: 09/20/01 ? FINAL DIAGNOSIS ?CERVIX (PREP) (CX(PREP)): ? SATISFACTORY FOR EVALUATION. ? WITHIN NORMAL LIMITS. ? SQUAMOUS METAPLASIA. ?Diagnosis by: ??Yonny Griffith, CT(ASCP) ?Signed On: OCT 02 ? QC Reviewer: ??Caty Rolle, CT(ASCP) ? SOURCE CARE UNIT: ?[facility] ? REPORTS TO: ?Nita Mckeon M.D. ? Specimen: ?CX(PREP) ?? Direct Smears Received: ?1 Conversion Provider Not In Sys CYTOLOGY ORDERABLES Performing Organization Address City/State/[facility] Co de Phone Number [facility] from Last 3 Months or Most Recently Relevant to Health Maintenance Sosa, Liz M Personal/Family Self [address] [place] [phone] Ssoa, Liz M Personal/Family Self [address] [place] [id number] Sosa, Liz M Personal/Family Self 1980 [address] [place] [address] iLz Sosa Personal/Family Self [address] [place] [phone] Care Teams Assistant Store Manager Trainee Relationship Specialty Start Date End Date Unknown, Unknown, PCP - General 08/28/19 Additional Source Comments The information contained in this document represents components of the legal health record. It is not the complete legal health record.[facility]
--- OUTSIDE RECORDS SUMMARY | 2024-04-30 08:55 | XMS_ITS | Referral Summary ---
Author Organization [facility] ([facility]) Address [address] [place] [address] Care Team Providers Care Replenisher Name Role Phone Unavailable Primary Care Provider Unavailabl e Encounters Date Type Department Care Team Description 04/27/2024 8:21 AM EST - 04/27/2024 9:23 AM EST Emergency Emergency Department [address] [place] [address] Fatimah Gross NP EAR PROBLEM; HEADACHE Discharge Disposition: Home from Last 3 Months Allergies Active Allergy Reactions Criticality Noted Date Comments Latex Rash 10/09/2023 Sulfa Antibiotics Rash 10/09/2023 Social History Tobacco Use Types Packs/Day Years [...] impacted cerumen from Last 3 Months Insurance [facility]
[2024-04-30] MEDS: Lactated Ringers 1,000 ML 100 ML IVCONT (09:12)
[2024-04-30 09:25] LABS: UPreg QC Valid YES; Urine Pregnancy NEGATIVE (NEGATIVE)
[2024-04-30 09:34] VITALS: BP 106/54; PULSE 60; RESP 18; TEMP 36.6; O2SAT 98
--- NOTE | 2024-04-30 10:37 | P.OPN-COLO_ITS ---
Colonoscopy Operative Note Operative Note Date of Service: 04/30/24 Narrative: Procedure: Colonoscopy Indication: Changes in bowel habits, fam hx of CRC Endoscopist: Bessie Xiong MD Anesthesia type: Conscious sedation. Medications: Fentanyl 87.5 mcg and midazolam 3 mg Total sedation time was 16 minutes. Instrument: Olympus [id number]-H190L Consent: Indication, risks vs benefits, and alternatives were discussed with the patient who gave written informed consent to proceed. EKG, pulse, pulse oximetry and blood pressure were monitored throughout the procedure. Please see anesthesia flowsheet. Procedure: The patient was brought to the procedure room and placed in the left lateral decubitus position. IV medications were administered by the RN in attendance. A digital rectal exam was performed which was normal. A distal attachment cap was affixed to the tip of the colonoscope which was then inserted through the anus and advanced through the colon to the cecum at 75 cm,and terminal ileum. Appendiceal orifice and ileocecal valve were identified. Mucosa was carefully examined under high definition white light as the instrument was slowly withdrawn in a retrograde panoramic fashion. Retroflexion was performed in rectum. The procedure was not difficult. There were no immediate obvious complications. The quality of the prep was BBPS: 3+2+3 = adequate Withdrawal time 6 minutes. Limitations: No limitations. Findings: Mucosa: Normal to cecum and terminal ileum. Cold forceps biopsies were taken from right and left side of the colon to rule out microscopic colitis. Protruding lesions: * Medium internal hemorrhoids without stigmata of recent bleeding. Impression: 1. Normal colon mucosa (biopsy) 2.Internal hemorrhoids Recommendations: - Follow path results. - Repeat colonoscopy in 10 years for asymptomatic colorectal cancer screening. As the father was > 60 y.o at the time of diagnosis of colorectal cancer, average screening interval applies for the patient.
[2024-04-30 10:45] VITALS: BP 90/40; PULSE 54; RESP 16; TEMP 36.4; O2SAT 100
[2024-04-30 11:00] VITALS: BP 93/61; PULSE 55; RESP 18; TEMP 36.6; O2SAT 100
== END 2024-04-30 11:32 | disposition home or self-care (01) ==
PROVIDERS: Nurse Practitioner; Visit Provider Internal Medicine
PROC: 0DJD8ZZ Inspection of Lower Intestinal Tract, Via Natural or Artificial Opening Endoscopic (ICD-10-PCS; CPT 45378; principal; 2024-04-30 11:10)
DX: R19.4 Change in bowel habit (principal); Z80.0 Family history of malignant neoplasm of digestive organs; K64.8 Other hemorrhoids; K58.9 Irritable bowel syndrome, unspecified; E50.9 Vitamin A deficiency, unspecified; M32.9 Systemic lupus erythematosus, unspecified; F31.9 Bipolar disorder, unspecified; Z88.2 Allergy status to sulfonamides; Z91.040 Latex allergy status; Z56.0 Unemployment, unspecified
CPT/HCPCS: 45380; 81025; 88305; J2250; J2310; J2405; J3010

== ENCOUNTER → 2024-04-30 08:33 | Outpatient (BNV) | payer OTHER, SELFPAY | PROVIDERS: Visit Provider Internal Medicine | DX: Z12.11 Encounter for screening for malignant neoplasm of colon (principal); R19.4 Change in bowel habit; Z80.0 Family history of malignant neoplasm of digestive organs; K64.8 Other hemorrhoids | CPT/HCPCS: 45380 ==

== ENCOUNTER 2024-05-22 09:54 | Outpatient (AMB) | payer OTHER, SELFPAY ==
--- NOTE | 2024-05-22 10:01 | A.OFFVIS_ITS ---
Vital Signs 05/22/24 10:05 Height 5 ft Weight 141 lb 8.588 oz BMI 27.6 BP 90/62 Blood Pressure Location Lt brachial Position Sitting Respiration 16 Pulse 66 Pulse Source Pulse Oximeter Pulse Oximetry (%) 98 Oxygen Delivery Method Room Air Intake Visit Reasons: +JACK Intake Note: Patient presents for +JACK. Allergies latex Allergy (Mild, Verified 05/22/24 10:03) Anaphylaxis Sulfa (Sulfonamide Antibiotics) Allergy (Mild, Verified 05/22/24 10:03) Hives HPI Comments Details: Patient is a 43-year-old female with anxiety/depression, bipolar who presents today for follow up of subacute cutaneous lupus Interval History: Patient initially seen 12/08/[address] Tj Garcia. At that time she was being evaluated for facial rash and a positive JACK. The rash on the face was seen by car ferry captain and was told that she had lupus (query biopsy) she did not meet criteria for systemic lupus at that time. Today, She is here today because she continues to have overwhelming fatigue and feels that there is intermittent joint pain. Particularly she is noting right hip pain which previously showed osteoarthritis. She is also noting a shock-like symptom going down her left leg that can occur while she is driving or holding her leg in positions for a long period of time. Currently uses topicals for her subacute cutaneous lupus Denies alopecia, oral/nasal ulcers, sicca symptoms, lymphadenopathy, chest pain/shortness of breath, inflammatory type joint pain, foamy urine, lower extremity edema, muscle weakness, Raynaud's Also denies history of seizure, CVA, psychosis, history of kidney problems, history of cytopenias, history of VTE including PE or DVTs Rheumatologic History: Patient diagnosed with subacute cutaneous lupus based on dermatology review. Deferred biopsy as she did not want a facial scars. Cover it and manages this with topicals Current Rheumatology Medication(s): REPLACED BY [facility] Medical History (Updated 05/22/24 @ 15:17 by Zandra Cooper MD) Subacute cutaneous lupus erythematosus Anxiety Bipolar disorder IBS (irritable bowel syndrome) Vitamin A deficiency Depression Surgical History Hx of wisdom tooth extraction Hx of dilation and curettage History of colposcopy Family History Father Colon cancer Cancer of kidney Maternal Grandfather Colon cancer Social History Household Members Other:: I am in between houses, staying with friends Housing: Apartment Are you a primary care transitions nurse to a significant other at home: No Do you presently have visiting nurse or other home services: No Alcohol intake: never Patient Tobacco Use Status: Never used Tobacco Tobacco use type: Cigarette e-Cigarette/Vaping Use: Never Used Second Hand Smoke Exposure: No service: No Current occupational status: unemployed and student Current occupation: [employer] Cognitive needs: No Hearing needs: No Vision needs: Yes Female Reproductive History Menstrual Age of Menarche: 10 Review of Systems Const Details: Review of Systems Constitutional: Denies fever, chills, weight loss ENT: Denies vision changes, eye pain or eye redness, dental caries, dry mouth GI: Denies nausea, vomiting, diarrhea, abdominal pain, change in BM Pulm: Denies SOB, WING, hemoptysis, wheezing Cards: Denies chest pain, palpitations Skin: Denies Raynaud's, rash, nail changes, photosensitivity, DIRECTOR PATIENT ACCOUNTING: Denies headaches, weakness, paresthesias, recurrent falls MSK: as per HPI All other systems reviewed and are unremarkable except noted above Physical Exam Vital Signs: Last Vital Signs Pulse 66 05/22/24 10:05 Resp 16 05/22/24 10:05 BP 90/62 05/22/24 10:05 Pulse Ox 98 05/22/24 10:05 Oxygen Delivery Method Room Air 05/22/24 10:05 BMI result Body Mass Index 27.6 Vital signs reviewed Physical Examination CONSTITUITIONAL Patient alert and cooperative. Well appearing and in no apparent painful distress HEENT Conjunctiva and sclera clear. ?Pupils equal round and reactive to light. ?No lymphadenopathy. ? CHEST/RESPIRATORY SYSTEM Normal respiratory effort and able to speak in complete sentences. ?Clear to auscultation bilaterally. ?No crackles, rales, rhonchi, wheezes heard. CARDIAC SYSTEM Regular rate and rhythm. ?S1 and S2 heard no murmurs. ?Radial pulses intact bilaterally MSK Hands: ?Good terra cotta roofer helper strength bilaterally. No deformities noted. ?No synovitis noted to the MCPs, PIPs or DIPs. ?No tenderness to palpation of these joints. Wrists: ?Full range of motion at the wrists without pain. ?No tenderness to pal pation or synovitis noted to the wrists. Elbows: Full range of motion without pain. No tenderness, weakness, swelling, increased warmth or erythema. Shoulders: Full range of motion without pain. No tenderness, weakness, swelling, increased warmth or erythema. Hips: Full range of motion without pain. Hip bursa: No tenderness to palpation Knees: ?Full range of motion. ?No tenderness, swelling, increased warmth or erythema.?No effusion or crepitations Ankles: Full range of motion. ?No tenderness, swelling, increased warmth or erythema.? Feet: ?Negative squeeze test. ?No tenderness to palpation or swelling of the MTPs. Tender points:?No tenderness to palpation of the bilateral trapezius, supraspinatus, greater trochanters, anterior costochondral junctions, bilateral gluteal areas, bilateral suboccipital muscle insertions SKIN Mild malar rash noted to her cheeks with some hyperpigmentation scarring Results Reviewed Results Reviewed: Laboratory Tests 06/03/21 12/08/21 01/05/24 07:00 12:00 07:25 WBC 5.3 RBC 4.89 Hgb 13.2 Hct 40.2 MCV Plt Count 267 ESR 5 Sodium 140 Potassium 3.8 Chloride 106 Carbon Dioxide 26 BUN 8 L Creatinine 0.77 Calcium Total Bilirubin 0.5 AST 25 ALT 19 Alkaline Phosphatase 43 Total Protein 7.2 C-Reactive Protein Albumin 4.0 JACK Screen POSITIVE A JACK Titer 1:320 H Sm (Stone) Antibody <1.0 NEG SM/IMMUNOHEMATOLOGIST IgG Antibody <1.0 NEG Double Strand DNA Ab <1 Complement C3 104 Complement C4 23 05/22/24 11:32 WBC 6.4 RBC 4.90 Hgb 13.3 Hct 39.5 MCV 80.6 Plt Count 278 ESR 3 Sodium 140 Potassium 3.9 Chloride 107 Carbon Dioxide 24 BUN 9 Creatinine 0.75 Calcium 9.4 Total Bilirubin 0.4 AST 28 ALT 24 Alkaline Phosphatase 59 Total Protein 8.9 H C-Reactive Protein 0.17 Albumin 4.4 JACK Screen JACK Titer Sm (Stone) Antibody SM/IMMUNOHEMATOLOGIST IgG Antibody Double Strand DNA Ab Complement C3 Complement C4 Assessment & Plan Assessment & Plan (1) Subacute cutaneous lupus erythematosus: Code(s): L93.1 - Subacute cutaneous lupus erythematosus Category: Medical Plan: #Subacute cutaneous lupus Patient with non biopsy-proven subacute cutaneous lupus based on pattern of rash and positive JACK. No evidence of systemic involvement of her lupus at this time. Her current signs and symptoms are not related to an underlying autoimmune cause of her condition. Discussed that we can potentially try Plaquenil but she deferred this at that time wanting to try more holistic approaches. Plan - Continue topicals as per derm - Labs today: CBC, CMP, ESR, CRP, C3, C4, dsDNA, UA, UPC - RTC 6 months Plan I spent 30 minutes reviewing the record and labs, taking a history, examining the patient, discussing the treatment plan and documenting in the medical record Orders: Orders Sm Sm/IMMUNOHEMATOLOGIST Antibodies Today L93.1 - Subacute cutaneous lupus erythematosus Anti DNA DS Antibody Today L93.1 - Subacute cutaneous lupus erythematosus Complement C4 Today L93.1 - Subacute cutaneous lupus erythematosus C Reactive Protein Today L93.1 - Subacute cutaneous lupus erythematosus Erythrocyte Sedimentation Rate Today L93.1 - Subacute cutaneous lupus erythematosus UA w Microscopic Today L93.1 - Subacute cutaneous lupus erythematosus Complete Blood Count Auto Diff Today L93.1 - Subacute cutaneous lupus erythematosus Comprehensive Met. Panel Today L93.1 - Subacute cutaneous lupus erythematosus Protein Creatinine Ratio, Ur 05/23/24 L93.1 - Subacute cutaneous lupus erythematosus Homocysteine Today E53.8 - Deficiency of other specified B group vitamins Complement C3 Today L93.1 - Subacute cutaneous lupus erythematosus Protein Creatinine Ratio, Ur Today L93.1 - Subacute cutaneous lupus erythematosus Sjogren's Antibodies Today L93.1 - Subacute cutaneous lupus erythematosus Lupus Anticoagulant Panel Today L93.1 - Subacute cutaneous lupus erythematosus Beta-2 Glycoprotein Antibody Today L93.1 - Subacute cutaneous lupus erythematosus Cardiolipin Antibodies Today L93.1 - Subacute cutaneous lupus erythematosus UA w Microscopic 05/23/24 L93.1 - Subacute cutaneous lupus erythematosus Methylmalonic Acid Today E53.8 - Deficiency of other specified B group vitamins Coding Level of Care Code Est Pt Level 4 (32428) Complex EM visit Add On G2211 Diagnoses Subacute cutaneous lupus erythematosus L93.1
[2024-05-22 10:05] VITALS: BP 90/62; PULSE 66; RESP 16; O2SAT 98; BMI 27.6
--- OUTSIDE RECORDS SUMMARY | 2024-05-22 10:17 | XMS_ITS | Clinical Summary ---
Author Organization [facility] Address [address] [place] [address] Care Team Providers Care Windows Application Administrator Name Role Phone Maame Fried MD Primary Care Provider [phone] Allergies Active Allergy Reactions Criticality Noted Date [...] patient's age to complete this topic Insurance [facility] REFERRAL [id number] [place] Care Teams Windows Application Administrator Relationship Specialty Start Date End Date Maame Fried MD [address] [facility] [place] [address] PCP - General 04/28/22
--- OUTSIDE RECORDS SUMMARY | 2024-05-22 10:17 | XMS_ITS | Referral Summary ---
Author Organization [facility] r Address 1 [facility] [address] Main Number: [phone] (24/10) [place] [address] Care Team Providers Care Verification Rep Name Role Phone Maame Sawyer MD Unavailable [phone] Allergies Active Allergy Reactions Criticality Noted [...] (post-traumatic stress disorder) 07/31/2013 Bipolar 2 disorder ([facility]) 05/10/2012 Overview (08/26/2022): Was in a light study at [place] in 2009. Assessment & Plan (08/28/2020 4:39 [...] areas of likely mod dysplasia. Refer to control panel assembler Pt opts for expectant management, repeat colpo 10/13 with Automatic Embroidery Machine Tender 09/27/12 Colpo CBX acute and chronic cervicitis [...] is most likely related to hormonal fluctuations, vzb-loslcpdlxry-zg right diagnostic mammography right breast ultrasound would [...] Recently Relevant to Health Maintenance Care Teams Verification Rep Relationship Specialty Start Date End Date Maame Sawyer MD 2 [facility] [address] [place] [address] PCP - Insurance 08/19/22
--- OUTSIDE RECORDS SUMMARY | 2024-05-22 10:17 | XMS_ITS | Referral Summary ---
Author Organization [facility] ([facility]) Address [address] [place] [address] Care Team Providers Care Nuclear Medicine Pet Ct Technologist Name Role Phone Unavailable Primary Care Provider Unavailabl e Encounters Date Type Department Care Team Description 04/27/2024 8:21 AM EST - 04/27/2024 9:23 AM EST Emergency Emergency Department [address] [place] [address] Fatimah Gross NP EAR PROBLEM; HEADACHE Discharge [...] impacted cerumen from Last 3 Months Insurance [facility]
--- OUTSIDE RECORDS SUMMARY | 2024-05-22 10:17 | XMS_ITS | Clinical Summary ---
Author Organization [facility] ([facility]) Address [address] [place] [address] Care Team Providers Care Flare Breaker Name Role Phone Unavailable Primary Care Provider Unavailabl e Allergies Active Allergy Reactions Criticality Noted Date Comments Latex Rash 10/09/2023 Sulfa Antibiotics Rash 10/09/2023 Encounters Date Type Department Care Team Description 04/27/2024 8:21 AM EST - 04/27/2024 9:23 AM EST Emergency Emergency Department [address] [place] [address] Fatimah Gross NP EAR PROBLEM; HEADACHE Discharge [...] impacted cerumen from Last 3 Months Insurance [facility]
--- OUTSIDE RECORDS SUMMARY | 2024-05-22 10:17 | XMS_ITS | Clinical Summary ---
Author Organization [facility] r Address [address] [facility] [address] [address] Main Number: [phone] (24/10) [place] [address] Care Team Providers Care Bag Washer Name Role Phone Maame Sawyer MD Unavailable [phone] Allergies Active Allergy Reactions Criticality Noted [...] (post-traumatic stress disorder) 07/31/2013 Bipolar 2 disorder ([facility]) 05/10/2012 Overview (08/26/2022): Was in a light study at [place] in 2009. Assessment & Plan (08/28/2020 4:39 [...] areas of likely mod dysplasia. Refer to house mover supervisor Pt opts for expectant management, repeat colpo 10/13 with Rn Cardiac 09/27/12 Colpo CBX acute and chronic cervicitis [...] is most likely related to hormonal fluctuations, kcy-pkprjgjhzdx-em right diagnostic mammography right breast ultrasound would [...] Recently Relevant to Health Maintenance Care Teams Bag Washer Relationship Specialty Start Date End Date Maame Sawyer MD [address] [place] [address] PCP - Insurance 08/19/22
--- OUTSIDE RECORDS SUMMARY | 2024-05-22 10:17 | XMS_ITS | Encounter Summary ---
Author Organization [facility] ([facility]) Address [address] [place] [address] Care Team Providers Care Quality Control Inspector Name Role Phone Unavailable Primary Care Provider Unavailabl e Reason for Visit * Reason Comments EAR PROBLEM HEADACHE Encounter Details Date Type Department Care Team (Late st Contact Info) Description 04/27/2024 8:21 AM EST - 04/27/2024 9:23 AM EST Emergency Emergency Department [address] [place] [address] Fatimah Gross NP [address] [place] [address] EAR PROBLEM; HEADACHE Discharge Disposition: Home Social [...] sent through Care Everywhere. * Ear Irrigation (Panamanian) * Earwax Buildup Adult (Panamanian) documented in this encounter ED Notes * [...] recognition software. Please excuse any errors in theatrical scenic designer Final diagnoses: Bilateral impacted cerumen documented in [...]
--- OUTSIDE RECORDS SUMMARY | 2024-05-22 10:18 | XMS_ITS | Encounter Summary ---
Author Organization [facility] r Address [address] [address] [facility] [address] Main Number: [phone] (24/10) [place] [address] Care Team Providers Care Engineering Specialist Name Role Phone Maame Sawyer MD Unavailable [phone] Reason for Visit * Reason Comments Med Change Request Encounter Details Date Type Department Care Team (Late st Contact Info) Description 03/20/2023 Refill [facility] [address] [place] [address] Radha Burns PA-C [address] [place] [address] Acute nasopharyngitis Social History Tobacco Use Types [...] cold) documented in this encounter Care Teams Engineering Specialist Relationship Specialty Start Date End Date Maame Sawyer MD [address] [place] [address] PCP - Insurance 08/19/22 documented as of this encounter
--- OUTSIDE RECORDS SUMMARY | 2024-05-22 10:18 | XMS_ITS | Clinical Summary ---
Author Organization [facility] lin Address 1 [place] [address] Care Team Providers Care Cloth Pattern Maker Name Role Phone Pcp, No Primary Care Provider [phone] Social History Tobacco Use Types Packs/Day Years Used Date Smoking Tobacco: Never Assessed Comments Unknown Sex and Gender Information Value Date Recorded Sex Assigned at Not on file Legal Sex Unknown 02/24/2021 11:17 AM EST Gender Identity Not on file Sexual Orientation Not on file Plan of Treatment Health Maintenance Due Date Last Done Comments Colorectal Cancer: COLONOSCO PY Screening every 10 yrs (or Modifier) 1978 Depression: Screening Annual ly using PHQ-2/9 in Adults 18 yrs or above (or HM Modifier)([facility]) 1996 Hepatitis C Virus Infection in Adolescents and Adults: Screening (or Modifier) ([facility]) 1996 SDOR Screening Reminder: Annually for all adults ([facility]) 1996 Tobacco Smoking Cessation: i n Adults excluding Women: Behavioral and Pharmacotherapy Interventions ([facility]) 1996 Cervical Cancer Screenin-65 yrs of age (or Modifier) 09/19/1999 Cervical Cancer Screening: P ap every 3 yrs pts age 21-65 09/19/1999 Cervical Cancer: Pap Screeni ng with Modifier timing ([facility]) 09/19/1999 Cervical Cancer: hrHPV alone or with cotesting Pap for Pts 30-65yrs screening every 5yrs ([facility]) 09/19/1999 Colorectal Cancer Screening 45 -75 Yrs (or HM Modifier) 09/19/2023 Colorectal Cancer: FLEXIBLE SIGMOIDOSCOPY Screening every 5 yrs 09/19/2023 Colorectal Cancer: Fecal Immunochemical Test (FIT) Annually [facility] 09/19/2023 Colorectal Cancer: High-sensitivity gFOBT Screening Annually [facility] 09/19/2023 Colorectal Cancer: Stool Cologuard Screening every 3 yrs 09/19/2023 Colorectal Cancer:CT Colonography Screening every 5 yrs 09/19/2023 Flu Vaccination: Yearly for ages 18mos through 64 years (or Modifier)([facility]) 11/02/2023 COVID-19 Vaccine Screening: Initial Series and Booster Status ([facility]) ( - 2023- season) 2023 08/20/2020, 07/23/2020 Zoster/Shingles Vaccine Seri es Screening: Adults aged 18+ yrs (or HM Modifiers)([facility]) (1 of 2) 2028 DTaP/Tdap/Td Vaccines ([facility]) (3 - Td or Tdap) 02/12/2029 02/12/2019, 01/15/2009 Pneumococcal Vaccination Screening: Pts 0-19 & 19-64 yrs of age ([facility]) Aged Out No longer eligible based on patient's age to complete this topic Medical Devices Not on file [facility] Care Teams Cloth Pattern Maker Relationship Specialty Start Date End Date Pcp, Lucy PCP - General Family Medicine 08/23/21
--- OUTSIDE RECORDS SUMMARY | 2024-05-22 10:19 | XMS_ITS | Encounter Summary ---
Author Organization [facility] r Address [address] Main Number: [phone] (24/10) [place] [address] Care Team Providers Care Pasteurizer Helper Name Role Phone Maame Sawyer MD Unavailable [phone] Encounter Details Date Type Department Care Team (Late st Contact Info) Description 01/27/2023 Orders Only [facility] [address] [place] [address] Radha Burns PA-C [address] [place] [address] Acute nasopharyngitis Social History Tobacco Use Types [...] Palumbolexie Burns PA-C MICROBIOLOGY - GENERAL ORDERABLES [facility] CLIA [id number] [address] [facility] [place] [address], * *STAT - Rapid Screen For Group A Strep Antigen (01/27/2023 10:27 AM EDT) Specimen Description THROAT [facility] Results NEGATIVE FOR THE PRESENCE OF GROUP A STREPTOCOCCAL ANTIGEN. PLEASE NOTE: A NEGATIVE RAPID STREPTOCOCCAL ANTIGEN TEST DOES NOT RULE OUT THE POSSIBILITY OF STREPTOCOCCAL INFECTION. PLEASE SEE THROAT CULTURE RESULTS. 01/27/2023 10:29 AM EDT [facility] SPECIMEN FROM THROAT / Unknown 01/27/2023 10:27 AM EDT 01/27/2023 10:28 AM EDT Radha Palumbolexie Burns PA-C MICROBIOLOGY - GENERAL ORDERABLES Performing Organization Address City/[facility]/ZIP Co de Phone Number [facility] CLIA#[id number] [address] [place] [address] documented in this encounter Visit Diagnoses Diagnosis Acute nasopharyngitis Acute nasopharyngitis (common cold) documented in this encounter Additional Health Concerns Infection Onset Date Last Indicated Resolved Time COVID-19 Rule Out 01/27/2023 01/27/2023 01/27/2023 8:43 PM EDT documented as of this encounter Care Teams Pasteurizer Helper Relationship Specialty Start Date End Date Maame Sawyer MD [address] [place] [address] PCP - Insurance 08/19/22 documented as of this encounter
--- OUTSIDE RECORDS SUMMARY | 2024-05-22 10:19 | XMS_ITS | Clinical Summary ---
Author Organization [facility] Address [phone] [place] [address] Care Team Providers Care Formulator Name Role Phone Unknown, Unknown Primary Care [...] Smear (09/28/2001 12:00 AM EDT) 09/28/2001 Narrative [facility] - 10/29/2001 2:44 PM EDT Accession Number: ??[id number] ? Report Status: ??Final Type: ??Cytology ? Cytology Report: ??[id number] ? DATE TAKEN: ?SEP 02 ?ACCESSIONED ON: [...] In Sys CYTOLOGY ORDERABLES Performing Organization Address City/State/[facility] Co de Phone Number [facility] from Last 3 Months or Most Recently Relevant to Health Maintenance Care Teams Formulator Relationship Specialty Start Date End Date Unknown, Unknown, PCP - General 08/28/19 Additional Source Comments The information contained in this document represents components of the legal health record. It is not the complete legal health record.[facility]
== END 2024-05-22 10:58 | disposition home or self-care (01) ==
PROVIDERS: Visit Provider Student in an Organized Health Care Education/Training Program
DX: L93.1 Subacute cutaneous lupus erythematosus (principal)
CPT/HCPCS: 99214; G2211

== ENCOUNTER → 2024-05-22 09:54 | Outpatient (BNVA) | payer OTHER, SELFPAY | PROVIDERS: Visit Provider Student in an Organized Health Care Education/Training Program | DX: L93.1 Subacute cutaneous lupus erythematosus (principal); E53.8 Deficiency of other specified B group vitamins | CPT/HCPCS: 99212 ==

== ENCOUNTER 2024-05-22 11:04 | Outpatient (REF) | payer OTHER, SELFPAY ==
[2024-05-22 11:36] LABS: MANUAL DIFF FLAG NO
--- OUTSIDE RECORDS SUMMARY | 2024-05-22 11:52 | XMS_ITS | Encounter Summary ---
Author Organization [facility] r Address [address] Main Number: [phone] (24/10) [place] [address] Care Team Providers Care Celebrity Chef Entrepreneur Media Personality Name Role Phone Maame Sawyer MD Unavailable [phone] Reason for Visit * Reason Comments Med Change Request Encounter Details Date Type Department Care Team (Late st Contact Info) Description 03/20/2023 Refill [facility] [address] [place] [address] Radha Burns PA-C [address] [place] [address] Acute nasopharyngitis Social History Tobacco Use Types [...] cold) documented in this encounter Care Teams Celebrity Chef Entrepreneur Media Personality Relationship Specialty Start Date End Date Maame Sawyer MD [address] [place] [address] PCP - Insurance 08/19/22 documented as of this encounter
--- OUTSIDE RECORDS SUMMARY | 2024-05-22 11:52 | XMS_ITS | Clinical Summary ---
Author Organization [facility] Address [address] [address] Care Team Providers Care Machine Boss Name Role Phone Maame Fried MD Primary Care Provider [phone] Allergies Active Allergy Reactions Criticality Noted Date [...] patient's age to complete this topic Insurance [facility] REFERRAL [address] [place] Care Teams Machine Boss Relationship Specialty Start Date End Date Maame Fried MD 2 [facility] [place] [address] PCP - General 04/28/22
--- OUTSIDE RECORDS SUMMARY | 2024-05-22 11:52 | XMS_ITS | Clinical Summary ---
Author Organization [facility] Address 1 [place] [address] Care Team Providers Care End Lathe Operator Name Role Phone Pcp, No Primary Care Provider [phone] Social History Tobacco Use Types Packs/Day Years [...] Adults 18 yrs or above (or HM Modifier)([facility]) 1996 Hepatitis C Virus Infection in Adolescents and Adults: Screening (or Modifier) ([facility]) 1996 SDND Screening Reminder: Annually for all adults ([facility]) 1996 Tobacco Smoking Cessation: i n Adults excluding Women: Behavioral and Pharmacotherapy Interventions ([facility]) 1996 Cervical Cancer Screenin-65 yrs of age (or Modifier) 09/19/1999 Cervical Cancer Screening: P ap every 3 yrs pts age 21-65 09/19/1999 Cervical Cancer: Pap Screeni ng with Modifier timing ([facility]) 09/19/1999 Cervical Cancer: hrHPV alone or with cotesting Pap for Pts 30-65yrs screening every 5yrs ([facility]) 09/19/1999 Colorectal Cancer Screening 45 -75 Yrs (or HM Modifier) 09/19/2023 Colorectal Cancer: FLEXIBLE SIGMOIDOSCOPY Screening every 5 yrs 09/19/2023 Colorectal Cancer: Fecal Immunochemical Test (FIT) Annually [facility] 09/19/2023 Colorectal Cancer: High-sensitivity gFOBT Screening Annually [facility] 09/19/2023 Colorectal Cancer: Stool Cologuard Screening every 3 yrs 09/19/2023 Colorectal Cancer:CT Colonography Screening every 5 yrs 09/19/2023 Flu Vaccination: Yearly for ages 18mos through 64 years (or Modifier)([facility]) 11/02/2023 COVID-19 Vaccine Screening: Initial Series and Booster Status ([facility]) ( - 2023- season) 2023 08/20/2020, 07/23/2020 Zoster/Shingles Vaccine Seri es Screening: Adults aged 18+ yrs (or HM Modifiers)([facility]) (1 of 2) 2028 DTaP/Tdap/Td Vaccines ([facility]) (3 - Td or Tdap) 02/12/2029 02/12/2019, 01/15/2009 Pneumococcal Vaccination Screening: Pts 0-19 & 19-64 yrs of age ([facility]) Aged Out No longer eligible based on patient's age to complete this topic Medical Devices Not on file [facility] Care Teams End Lathe Operator Relationship Specialty Start Date End Date Pcp, Lucy PCP - General Family Medicine 08/23/21
--- OUTSIDE RECORDS SUMMARY | 2024-05-22 11:52 | XMS_ITS | Encounter Summary ---
Author Organization [facility] ([facility]) Address [address] [place] [address] Care Team Providers Care Uranium Processing Supervisor Name Role Phone Unavailable Primary Care Provider Unavailabl e Reason for Visit * Reason Comments EAR PROBLEM HEADACHE Encounter Details Date Type Department Care Team (Late st Contact Info) Description 04/27/2024 8:21 AM EST - 04/27/2024 9:23 AM EST Emergency Emergency Department [address] [place] [address] Fatimah Gross NP [address] [place] [address] EAR PROBLEM; HEADACHE Discharge Disposition: Home Social [...] sent through Care Everywhere. * Ear Irrigation (Rwandan) * Earwax Buildup Adult (Rwandan) documented in this encounter ED Notes * [...] recognition software. Please excuse any errors in molding utility worker Final diagnoses: Bilateral impacted cerumen documented in [...]
--- OUTSIDE RECORDS SUMMARY | 2024-05-22 11:52 | XMS_ITS | Clinical Summary ---
Author Organization [facility] r Address [address] Main Number: [phone] (24/10) [place] [address] Care Team Providers Care Production Painter Name Role Phone Maame Sawyer MD Unavailable [phone] Allergies Active Allergy Reactions Criticality Noted [...] (post-traumatic stress disorder) 07/31/2013 Bipolar 2 disorder ([facility]) 05/10/2012 Overview (08/26/2022): Was in a light study at [place] in 2009. Assessment & Plan (08/28/2020 4:39 [...] areas of likely mod dysplasia. Refer to medical records clerk Pt opts for expectant management, repeat colpo 10/13 with Auricular Therapist 09/27/12 Colpo CBX acute and chronic cervicitis [...] is most likely related to hormonal fluctuations, xgb-dmebzvzubaq-rd right diagnostic mammography right breast ultrasound would [...] Recently Relevant to Health Maintenance Care Teams Production Painter Relationship Specialty Start Date End Date Maame Sawyer MD [address] [place] [address] PCP - Insurance 08/19/22
--- OUTSIDE RECORDS SUMMARY | 2024-05-22 11:52 | XMS_ITS | Referral Summary ---
Author Organization [facility] Address [address] [place] [address] Care Team Providers Care Griddle Cook Name Role Phone Unavailable Primary Care Provider Unavailabl e Encounters Date Type Department Care Team Description 04/27/2024 8:21 AM EST - 04/27/2024 9:23 AM EST Emergency Emergency Department [address] [place] [address] Fatimah Gross NP EAR PROBLEM; HEADACHE Discharge [...] impacted cerumen from Last 3 Months Insurance [facility]
--- OUTSIDE RECORDS SUMMARY | 2024-05-22 11:52 | XMS_ITS | Clinical Summary ---
Author Organization [facility] ([facility] Address [address] [place] [address] Care Team Providers Care Cyber Transport Systems Specialist Name Role Phone Unavailable Primary Care Provider Unavailabl e Allergies Active Allergy Reactions Criticality Noted Date Comments Latex Rash 10/09/2023 Sulfa Antibiotics Rash 10/09/2023 Encounters Date Type Department Care Team Description 04/27/2024 8:21 AM EST - 04/27/2024 9:23 AM EST Emergency Emergency Department [address] [place] [address] Fatimah Gross NP EAR PROBLEM; HEADACHE Discharge [...] impacted cerumen from Last 3 Months Insurance [facility]
--- OUTSIDE RECORDS SUMMARY | 2024-05-22 11:52 | XMS_ITS | Clinical Summary ---
Author Organization [facility] Address [phone] [place] [address] Care Team Providers Care Grey Goods Tester Name Role Phone Unknown, Unknown Primary Care [...] Smear (09/28/2001 12:00 AM EDT) 09/28/2001 Narrative [facility] - 10/29/2001 2:44 PM EDT Accession Number: ??[id number] ? Report Status: ??Final Type: ??Cytology ? Cytology Report: ??[id number] ? DATE TAKEN: ?SEP 02 ?ACCESSIONED ON: [...] In Sys CYTOLOGY ORDERABLES Performing Organization Address City/State/[facility] Co de Phone Number [facility] from Last 3 Months or Most Recently Relevant to Health Maintenance Care Teams Grey Goods Tester Relationship Specialty Start Date End Date Unknown, Unknown, PCP - General 08/28/19 Additional Source Comments The information contained in this document represents components of the legal health record. It is not the complete legal health record.[facility]
--- OUTSIDE RECORDS SUMMARY | 2024-05-22 11:52 | XMS_ITS | Referral Summary ---
Author Organization [facility] r Address [address] [facility] [address] Main Number: [phone] (24/10) [place] [address] Care Team Providers Care Scowman Name Role Phone Maame Sawyer MD Unavailable [phone] Allergies Active Allergy Reactions Criticality Noted [...] (post-traumatic stress disorder) 07/31/2013 Bipolar 2 disorder ([facility]) 05/10/2012 Overview (08/26/2022): Was in a light study at [place] in 2009. Assessment & Plan (08/28/2020 4:39 [...] areas of likely mod dysplasia. Refer to financial institution branch manager Pt opts for expectant management, repeat colpo 10/13 with Chair Mender 09/27/12 Colpo CBX acute and chronic cervicitis [...] is most likely related to hormonal fluctuations, nfh-gvvkwkhuivl-zt right diagnostic mammography right breast ultrasound would [...] Recently Relevant to Health Maintenance Care Teams Scowman Relationship Specialty Start Date End Date Maame Sawyer MD [address] [facility] [address] [place] [address] PCP - Insurance 08/19/22
--- OUTSIDE RECORDS SUMMARY | 2024-05-22 11:52 | XMS_ITS | Encounter Summary ---
Author Organization [facility] r Address [address] Main Number: [phone] (24/10) [place] [address] Care Team Providers Care Social Work Nurse Name Role Phone Maame Sawyer MD Unavailable [phone] Encounter Details Date Type Department Care Team (Late st Contact Info) Description 01/27/2023 Orders Only [facility] [address] [place] [address] Radha Burns PA-C [address] [place] [address] Acute nasopharyngitis Social History Tobacco Use Types [...] Palumbolexie Burns PA-C MICROBIOLOGY - GENERAL ORDERABLES [facility] CLIA [id number] [address] [facility] [place] [address], * *STAT - Rapid Screen For Group A Strep Antigen (01/27/2023 10:27 AM EDT) Specimen Description THROAT [facility] Results NEGATIVE FOR THE PRESENCE OF GROUP A STREPTOCOCCAL ANTIGEN. PLEASE NOTE: A NEGATIVE RAPID STREPTOCOCCAL ANTIGEN TEST DOES NOT RULE OUT THE POSSIBILITY OF STREPTOCOCCAL INFECTION. PLEASE SEE THROAT CULTURE RESULTS. 01/27/2023 10:[address] [facility] SPECIMEN FROM THROAT / Unknown 01/27/2023 10:27 AM EDT 01/27/2023 10:28 AM EDT Radha Palumbolexie Burns PA-C MICROBIOLOGY - GENERAL ORDERABLES Performing Organization Address City/[facility]/ZIP Co de Phone Number [facility] CLIA#[id number] [address] [place] [address] documented in this encounter Visit Diagnoses Diagnosis Acute nasopharyngitis Acute nasopharyngitis (common cold) documented in this encounter Additional Health Concerns Infection Onset Date Last Indicated Resolved Time COVID-19 Rule Out 01/27/2023 01/27/2023 01/27/2023 8:43 PM EDT documented as of this encounter Care Teams Social Work Nurse Relationship Specialty Start Date End Date Maame Sawyer MD [address] [place] [address] PCP - Insurance 08/19/22 documented as of this encounter
[2024-05-22 12:05] LABS: Basophils Percent Auto 0.6 % (0-2); Eosinophils Absolute Auto 0.1 X10*3/uL (0.0-0.4); Eosinophils Percent Auto 1.7 % (0-4); Hematocrit 39.5 % (37.0-47.0); Hemoglobin 13.3 g/dl (12.0-16.0); Imm Gran Abs Auto 0.03 X10*3/uL (0.00-0.03); Imm Gran Pct Auto 0.5 % (0.0-0.4); Lymphocytes Absolute Auto 1.6 X10*3/uL (1.2-4.9); Lymphocytes Percent Auto 24.9 % (20-40); Mean Corpuscular HGB Conc 33.7 g/dl (31.0-35.0); Mean Corpuscular Hemoglobin 27.1 pg (27.0-33.0); Mean Corpuscular Volume 80.6 fL (80.0-98.0); Mean Platelet Volume 10.4 fL (9.4-12.3); Monocytes Absolute Auto 0.6 X10*3/uL (0.1-1.2); Monocytes Percent Auto 8.9 % (2-11); Neutrophils Absolute Auto 4.1 x10*3/uL (2.0-8.3); Neutrophils Percent Auto 63.4 % (45-73); Platelet Count 278 X10*3/uL (160-400); Red Cell Distribution Width 12.9 % (11.0-16.0); White Blood Count 6.4 X10*3/uL (4.8-10.8)
[2024-05-22 12:57] LABS: Erythrocyte Sedimentation Rate 3 MM/HR (0-20)
[2024-05-22 12:59] LABS: Alanine Aminotransferase 24 U/L (0-31); Albumin Level 4.4 g/dL (3.5-5.0); Alkaline Phosphatase 59 U/L (39-117); Anion Gap 13 (12-20); Aspartate Amino Transferase 28 U/L (5-31); Bilirubin Total 0.4 mg/dL (0.0-1.0); Blood Urea Nitrogen 9 mg/dL (9-16); C Reactive Protein 0.17 mg/dL (< or = 0.50); Calcium 9.4 mg/dL (8.4-10.2); Carbon Dioxide 24 mmol/L (22-29); Chloride 107 mmol/L (96-108); Estimated Glomerular Filt Rate > 60; Glucose Random 87 mg/dL (60-115); Potassium 3.9 mmol/L (3.3-5.1); Sodium 140 mmol/L (135-145); Total Protein 8.9 g/dL (6.5-8.0)
[2024-05-22 13:02] LABS: Appearance Urine Cloudy; Color Urine Yellow; Glucose Urine UA Negative (Negative); Leukocyte Esterase Urine Negative (Negative); Nitrite Urine Negative (Negative); Specific Gravity - Urine 1.025 (1.005-1.025); Urine Blood Negative (Negative); Urine Ketones Negative (Negative); Urine Protein Negative (Neg-Trace)
[2024-05-22 13:04] LABS: Bacteria Urine Trace (None Seen); Hyaline Casts Urine 0-2 /LPF (0-2); RBC Urine 0-2 /HPF (0-2); WBC Urine 0-5 /HPF (0-5)
[2024-05-22 13:54] LABS: Creatinine Urine 171.63 mg/dL; Total Protein Urine Random < 7 mg/dL (<12)
[2024-05-23 14:27] LABS: Complement C3 139 mg/dL (83-193)
[2024-05-23 21:18] LABS: Homocysteine 5.7 umol/L (<10.4)
[2024-05-23 22:03] LABS: Anti DNA DS Antibody <1 IU/mL; Antibody to SS-A Antigen <1.0 NEG AI (<1.0 NEG); Antibody to SS-B Antigen <1.0 NEG AI (<1.0 NEG); SM/Ribonucleoprotein Ab <1.0 NEG AI (<1.0 NEG); Smith Protein <1.0 NEG AI (<1.0 NEG)
[2024-05-25 06:34] LABS: Methylmalonic Acid 140 nmol/L (55-335)
[2024-05-25 22:03] LABS: Beta-2 Glycoprotein IgA <2.0 U/mL (<20.0); Beta-2 Glycoprotein IgG <2.0 U/mL (<20.0); Beta-2 Glycoprotein IgM <2.0 U/mL (<20.0)
[2024-05-27 19:12] LABS: Cardiolipin IgG Ab <2.0 GPL-U/mL; Cardiolipin IgM Ab <2.0 MPL-U/mL
[2024-05-28 12:28] LABS: PTT (LAC) Screen 32 sec (<=40)
== END 2024-05-22 11:05 | disposition home or self-care (01) ==
LOC: HO.LAB 11:04
PROVIDERS: Visit Provider Student in an Organized Health Care Education/Training Program
DX: L93.1 Subacute cutaneous lupus erythematosus (principal); E53.8 Deficiency of other specified B group vitamins
CPT/HCPCS: 36415; 80053; 81001; 82570; 83090; 83921; 84156; 85025; 85597; 85598; 85613; 85652; 85730; 86140; 86146; 86147; 86160; 86225; 86235

== ENCOUNTER 2024-08-03 09:25 | Outpatient (AMB) | payer OTHER, SELFPAY ==
--- OUTSIDE RECORDS SUMMARY | 2024-08-03 09:27 | XMS_ITS | Referral Summary ---
Author Organization [facility] r Address [address] [place] [address] Phone Care Team Providers Care Silk Blocker Name Role Phone Maame Sawyer MD Unavailable [phone] Allergies Active Allergy Reactions Criticality Noted Date Comments Insect Venom 08/28/2020 Mosquito bites more prounounced Latex Anaphylaxis High 08/28/2020 Sulfa (Sulfonamide Antibiotics) Hives 08/28/2020 Medications fluticasone propionate (FLONASE) 50 mcg/actuation nasal sprayIndications:Ac alex nasopharyngitis 1 spray into each nostril daily. 15.8 mL 01/28/20 23 Active pseudoephedrine-gua ifenesin (MUCINEX D) 60-600 mg per tabletIndications:A cute nasopharyngitis Take 1 tablet by mouth every 12 (twelve) hours. 28 tablet 01/28/20 23 Active carbamide peroxide (DEBROX) 6.5 % otic solutionIndications :Excessive cerumen in both ear canals Administer 5 drops into both ears 2 (two) times a day as needed. 15 mL 07/31/19 24 Active Active Problems Problem Noted Date Diagnosed Date Right axillary swelling 08/28/2020 Assessment & Plan (08/28/2020 4:45 PM EDT): Reviewed mammo/US, R axillary swelling stable in 10/2019, recommended 6 mo followup Referral placed for pt now Vitamin D deficiency 10/23/2013 Assessment & Plan (08/28/2020 4:44 PM EDT): Refilled Vit D PTSD (post-traumatic stress disorder) 07/31/2013 Bipolar 2 disorder ([facility]) 05/10/2012 Overview (08/26/2022): Was in a light study at [place] in 2009. Assessment & Plan (08/28/2020 4:39 [...] areas of likely mod dysplasia. Refer to patient experience coordinator Pt opts for expectant management, repeat colpo 10/13 with Disciplinary Hearing Officer 09/27/12 Colpo CBX acute and chronic cervicitis [...] fu with pt at next visit Immunizations Immunization Administration Dates Next Due Hepatitis A 10/30/2009,01/15/2009 [...] drink = 0.6 oz pur e alcohol) Comments No Sex and Gender Information Value Date Recorded Sex Assigned at Female 01/27/2023 8:56 AM EDT Legal Sex Female 1:10 PM EDT Gender Identity Female 01/27/2023 8:56 AM [...] is most likely related to hormonal fluctuations, [id number] right diagnostic mammography right breast ultrasound would [...] Signed date and time: 10/22/2020 1:30 PM us Shelby Hoffman MD IMG MAMMOGRAPHY ORDERABLES Fi nal Result from Last 3 Months or Most Recently Relevant to Health Maintenance Care Teams Silk Blocker Relationship Specialty Start Date End Date Maame Sawyer MD [address] [place] [address] PCP - Insurance 08/19/22
--- OUTSIDE RECORDS SUMMARY | 2024-08-03 09:27 | XMS_ITS | Clinical Summary ---
Author Organization [facility] ([facility]) Address [address] [place] [address] Care Team Providers Care Premium Representative Name Role Phone Unavailable Primary Care Provider [...] 01/06/2015, 01/06/2015, Additional history exists COVID-19 Vaccine ( season) 2023 08/20/2020, 07/23/2020 Full Lipid Panel [...] patient's age to complete this topic Insurance [facility]
--- OUTSIDE RECORDS SUMMARY | 2024-08-03 09:27 | XMS_ITS | Encounter Summary ---
Author Organization [facility] r Address [address] [place] [address] Phone Care Team Providers Care Embossing Clerk Name Role Phone Maame Sawyer MD Unavailable [phone] Reason for Visit * Reason Comments Med Change Request Encounter Details Date Type Department Care Team (Late st Contact Info) Description 03/20/2023 Refill [facility] [address] [place] [address] Radha Burns PA-C [address] [place], [place] [id number] Acute nasopharyngitis Social History Tobacco Use Types [...] cold) documented in this encounter Care Teams Embossing Clerk Relationship Specialty Start Date End Date Maame Sawyer MD [address] [place] [id number] PCP - Insurance 08/19/22 documented as of this encounter
--- OUTSIDE RECORDS SUMMARY | 2024-08-03 09:27 | XMS_ITS | Referral Summary ---
Author Organization [facility]) Address [address] [place] [address] Care Team Providers Care Claim Representative Name Role Phone Unavailable Primary Care [...] - Plan of Treatment Not on file Insurance [employer]
--- OUTSIDE RECORDS SUMMARY | 2024-08-03 09:27 | XMS_ITS | Clinical Summary ---
Author Organization [facility] Address [address] [place] [address] Care Team Providers Care Infantry Unit Leader Name Role Phone Maame Fried MD Primary Care Provider [phone] Allergies Active Allergy Reactions Criticality Noted Date [...] patient's age to complete this topic Insurance [facility] REFERRAL [address] [place] Care Teams Infantry Unit Leader Relationship Specialty Start Date End Date Maame Fried MD [address] [facility] [place] [address] PCP - General 04/28/22
--- OUTSIDE RECORDS SUMMARY | 2024-08-03 09:27 | XMS_ITS | Clinical Summary ---
Author Organization [facility] [place] [facility] Address [address] [place] [address] Care Team Providers Care Acid Dumper Name Role Phone Pcp, No Primary Care Provider [phone] Social History Tobacco Use Types Packs/Day Years [...] Adults 18 yrs or above (or HM Modifier)([facility]) 1978 Hepatitis C Virus Infection in Adolescents and Adults: Screening (or Modifier) ([facility]) 1996 [facility] Screening Reminder: Annually for all adults ([facility]) 1996 Tobacco Smoking Cessation: i n Adults excluding Women: Behavioral and Pharmacotherapy Interventions ([facility]) 1996 Cervical Cancer Screenin-65 yrs of age (or Modifier) 09/19/1999 Cervical Cancer Screening: P ap every 3 yrs pts age 21-65 09/19/1999 Cervical Cancer: Pap Screeni ng with Modifier timing ([facility]) 09/19/1999 Cervical Cancer: hrHPV alone or with cotesting Pap for Pts 30-65yrs screening every 5yrs ([facility]) 09/19/1999 Colorectal Cancer Screening 45 -75 Yrs (or HM Modifier) 09/19/2023 Colorectal Cancer: FLEXIBLE SIGMOIDOSCOPY Screening every 5 yrs 09/19/2023 Colorectal Cancer: Fecal Immunochemical Test (FIT) Annually [facility] 09/19/2023 Colorectal Cancer: High-sensitivity gFOBT Screening Annually [facility] 09/19/2023 Colorectal Cancer: Stool Cologuard Screening every 3 yrs 09/19/2023 Colorectal Cancer:CT Colonography Screening every 5 yrs 09/19/2023 COVID-19 Vaccine Screening: Initial Series and Booster Status ([facility]) ( - 2023- season) 2023 08/20/2020, 07/23/2020 Flu Vaccination: Yearly for ages 18mos through 64 years (or Modifier)([facility]) 11/01/2024 Zoster/Shingles Vaccine Seri es Screening: Adults aged 18+ yrs (or HM Modifiers)([facility] ) (1 of 2) 2028 DTaP/Tdap/Td Vaccines ([facility]) (3 - Td or Tdap) 02/12/2029 02/12/2019, 01/15/2009 Pneumococcal Vaccination Screening: Pts 0-19 & 19-49 yrs of age ([facility]) Aged Out No longer eligible based on patient's age to complete this topic Medical Devices Not on file [facility] Care Teams Acid Dumper Relationship Specialty Start Date End Date Pcp, Lucy PCP - General Family Medicine 08/23/21
--- OUTSIDE RECORDS SUMMARY | 2024-08-03 09:28 | XMS_ITS | Encounter Summary ---
Author Organization [facility] r Address [address] [place] [address] Phone Care Team Providers Care Clam Bed Laborer Name Role Phone Maame Sawyer MD Unavailable [phone] Encounter Details Date Type Department Care Team (Late st Contact Info) Description 01/27/2023 Orders Only [facility] [address] [place] [phone] Radha Burns PA-C [address] [place] [address] Acute nasopharyngitis Social History Tobacco Use Types [...] 10:27 AM EDT 01/27/2023 10:30 AM EDT us Radha Burns PA-C MICROBIOLOGY - GENER AL ORDERABLES Final Result Performing Organization Address City/[facility]/ZIP Co de Phone Number [facility] CLIA [id number] [address] [place] [address], * *STAT - Rapid Screen For Group A Strep Antigen (01/27/2023 10:27 AM EDT) Specimen Description THROAT [facility] Results NEGATIVE FOR THE PRESENCE OF GROUP A STREPTOCOCCAL ANTIGEN. PLEASE NOTE: A NEGATIVE RAPID STREPTOCOCCAL ANTIGEN TEST DOES NOT RULE OUT THE POSSIBILITY OF STREPTOCOCCAL INFECTION. PLEASE SEE THROAT CULTURE RESULTS. 01/27/2023 10:29 AM EDT [facility] SPECIMEN FROM THROAT / Unknown 01/27/2023 10:27 AM EDT 01/27/2023 10:28 AM EDT us Radha Burns PA-C MICROBIOLOGY - GENER AL ORDERABLES Final Result Performing Organization Address City/[facility]/ZIP Co de Phone Number [facility] CLIA#[id number] [address] [place] [address] documented in this encounter Visit Diagnoses Diagnosis Acute nasopharyngitis Acute nasopharyngitis (common cold) documented in this encounter Additional Health Concerns Infection Onset Date Last Indicated Resolved Time COVID-19 Rule Out 01/27/2023 01/27/2023 01/27/2023 8:43 PM EDT documented as of this encounter Care Teams Clam Bed Laborer Relationship Specialty Start Date End Date Maame Sawyer MD [address] [place] [address] PCP - Insurance 08/19/22 documented as of this encounter
[2024-08-03 11:41] VITALS: BP 96/62; PULSE 62; TEMP 36.6; O2SAT 98; BMI 27.5
--- NOTE | 2024-08-03 11:41 | MHC.OFFWIV ---
Intake Vital Signs 08/03/24 11:41 Height 5 ft Weight 141 lb BMI 27.5 BP 96/62 Blood Pressure Location Rt brachial Position Sitting Pulse 62 Pulse Source Pulse Oximeter Temp 97.9 F Temp Source Oral Pulse Oximetry (%) 98 Intake Visit Reasons: EP Ear clogged up [phone] Patient Tobacco Use Status: Never used Tobacco Allergies latex Allergy (Mild, Verified 11/12/24 10:05) Anaphylaxis Sulfa (Sulfonamide Antibiotics) Allergy (Mild, Verified 11/12/24 10:05) Hives Do you need a note to return to daycare/school/sports/work: No HPI EP Ear clogged up [phone] HPI Details Patient is a 44-year-old female comes to the walk-in clinic complaining of feeling like her right ear was blocked. She reports she does have history of having ear wax impactions that needed irrigation in the past. She denies ear pain, respiratory symptoms or postnasal drip, sore throat, significant hearing loss, dizziness or headache, nausea vomiting or diarrhea, myalgias or malaise, fever or chills, or other significant associated symptoms. HPI Comments History of Present Illness Details Patient is a 43-year-old female who comes to the walk-in clinic complaining of an ear clogged [facility] Medical History Subacute cutaneous lupus erythematosus Anxiety Bipolar disorder IBS (irritable bowel syndrome) Vitamin A deficiency Depression Surgical History Hx of wisdom tooth extraction Hx of dilation and curettage History of colposcopy Family History Father Colon cancer Cancer of kidney Maternal Grandfather Colon cancer Social History Household Members Other:: I am in between houses, staying with friends Housing: Apartment Are you a primary health care social worker to a significant other at home: No Do you presently have visiting nurse or other home services: No Alcohol intake: never Patient Tobacco Use Status: Never used Tobacco e-Cigarette/Vaping Use: Never Used Second Hand Smoke Exposure: No service: No Current occupational status: unemployed and student Current occupation: [employer] Cognitive needs: No Hearing needs: No Vision needs: Yes Female Reproductive History Menstrual Age of Menarche: 10 Review of Systems Const All systems reviewed & are unremarkable except as noted in HPI and below Physical Exam Vital Signs: Last Vital Signs Temp 97.9 F 08/03/24 11:41 Pulse 62 08/03/24 11:41 BP 96/62 08/03/24 11:41 Pulse Ox 98 08/03/24 11:41 BMI result Body Mass Index 27.5 Patient in no apparent distress, left TM visible and clear, right TM slightly visible and looks healthy where visible, but complete view obstructed by external canal swelling and some cerumen. No purulent material noted Assessment & Plan Assessment & Plan (1) Otitis externa: Code(s): H60.90 - Unspecified otitis externa, unspecified ear Qualifiers: Otitis externa type: noninfectious Noninfectious otitis externa type: other type Chronicity: unspecified Laterality: right Qualified Code(s): H60.8X1 - Other otitis externa, right ear Plan: Patient is a 44-year-old female with history of recurrent cerumen impactions, and complains of block sensation to the right ear greater than the left. She has swelling to the external canal, with some cerumen, but not impacted at this time. She reports trying to put solution into her ears, and I think this has caused her symptoms. I think the main concern is to reduce inflammation and I wrote her for hydrocortisone ascetic acid solution. She should follow up if her symptoms persist or worsen. Medications: New hydrocortisone-acetic acid 1-2 % apply to (cotton) wick; replace wick every 24 hours 4 drps otic (ears) Q6H 10 mL 0RF Coding Level of Care Code Est Pt Level 4 (11362) Diagnoses Other noninfectious otitis externa of right ear, unspecified chronicity H60.8X1 Otitis externa type: noninfectious Noninfectious otitis externa type: other type Chronicity: unspecified Laterality: right
== END 2024-08-03 13:21 | disposition home or self-care (01) ==
PROVIDERS: Visit Provider Physician Assistant Medical
DX: H60.8X1 Other otitis externa, right ear (principal)

== ENCOUNTER → 2024-08-03 09:25 | Outpatient (BNVA) | payer OTHER, SELFPAY | PROVIDERS: Visit Provider Physician Assistant Medical | DX: H60.8X1 Other otitis externa, right ear (principal) | CPT/HCPCS: 99212 ==

== ENCOUNTER 2024-09-05 08:37 | Outpatient (REF) | payer OTHER, SELFPAY ==
[2024-09-06 16:09] LABS: Lyme Abs Screen <0.90 index
== END 2024-09-05 08:38 | disposition home or self-care (01) ==
LOC: HO.LAB 08:37
DX: H61.21 Impacted cerumen, right ear (principal); T14.8XXA Other injury of unspecified body region, initial encounter; W57.XXXA Bitten or stung by nonvenomous insect and other nonvenomous arthropods, initial encounter; Y93.9 Activity, unspecified; Y92.9 Unspecified place or not applicable; Y99.9 Unspecified external cause status
CPT/HCPCS: 36415; 69210; 86617; 86618; 96127; 99212

== ENCOUNTER 2024-09-05 08:37 | Outpatient (AMB) | payer OTHER, SELFPAY ==
[2024-09-05 08:54] VITALS: BP 80/50; PULSE 74; O2SAT 98; BMI 26.2
--- NOTE | 2024-09-05 08:54 | MHC.PC.OV ---
Vital Signs 09/05/24 08:54 Height 5 ft Weight 134 lb 4 oz BMI 26.2 BP 80/50 L Blood Pressure Location Lt brachial Position Sitting Pulse 74 Pulse Source Pulse Oximeter Pulse Oximetry (%) 98 Oxygen Delivery Method Room Air Intake Visit Reasons: Ear Problems Oil Recovery Unit Operator Required: No Accompanied by: Self / Same As Patient Allergies latex Allergy (Mild, Verified 09/05/24 09:16) Anaphylaxis Sulfa (Sulfonamide Antibiotics) Allergy (Mild, Verified 09/05/24 09:16) Hives Medication List - Last Reconciled 09/05/24 by Makenzie Lantigua PA-C cholecalciferol (vitamin D3) 25 mcg PO DAILY epinephrine (EpiPen 2-Duy) 0.3 mg (0.3 mL) IM ONCE PRN escitalopram oxalate 5 mg PO DAILY 90 days estradiol 1.25 gram/actuation (EstroGel) 1.25 grams transdermal DAILY hydrocortisone-acetic acid 1-2 % 4 drps otic (ears) Q6H miconazole nitrate 2% (Miconazole-7) 1 appful vaginal BEDTIME 7 days trazodone 50 mg PO BEDTIME PRN triamcinolone acetonide 0.1% 1 appl topical DAILY Tobacco use date assessed: 09/05/24 Dental Screening Dental Screen Date: 09/05/24 Did you have a dental visit in the last 12 months?: Yes Did you have a dental problem in the last 6 months where you did not have access to dental care?: No Was dental information given to patient?: Patient has dentist HPI Ear Problems HPI Details 43-year-old female with past medical history of anxiety, depression, bipolar 2, IBS last seen 02/2024 coming in for acute problem. Patient was seen in walk in clinic 08/03/2024 for ear issue and given steroid abx drops. Presenting with concerns of cerumen impaction and dry skin in both ear canals, causing fluctuant hearing loss over several years. The patient reports a history of recurrent ear blockages leading to visits to urgent care, where irrigation was performed. There is a significant amount of dry skin noted in the ear canals with occasional use of [id number] ear wax softeners. No use of hydrogen peroxide was reported, and a routine ear cleaning schedule is favored considering the patient's travel habits. FORMERLY [facility], [facility] Medical History Subacute cutaneous lupus erythematosus Anxiety Bipolar disorder IBS (irritable bowel syndrome) Vitamin A deficiency Depression Surgical History Hx of wisdom tooth extraction Hx of dilation and curettage History of colposcopy Family History Father Colon cancer Cancer of kidney Maternal Grandfather Colon cancer Social History Household Members Other:: I am in between houses, staying with friends Housing: Apartment Are you a primary med care manager to a significant other at home: No Do you presently have visiting nurse or other home services: No Alcohol intake: never Patient Tobacco Use Status: Never used Tobacco Tobacco use type: Cigarette e-Cigarette/Vaping Use: Never Used Second Hand Smoke Exposure: No service: No Current occupational status: unemployed and student Current occupation: [employer] Cognitive needs: No Hearing needs: No Vision needs: Yes Female Reproductive History Menstrual Age of Menarche: 10 Questionnaire PHQ-9 Over the last 2 weeks, how often have you been bothered by any of the following problems? 1. Little interest or pleasure in doing things: not at all 2. Feeling down, depressed, or hopeless: not at all 3. Trouble falling or staying asleep, or sleeping too much: not at all 4. Feeling tired or having little energy: not at all 5. Poor appetite or overeating: not at all 6. Feeling bad about yourself - or that you are a failure or have let yourself or your family down: not at all 7. Trouble concentrating on things, such as reading the newspaper or watching television: not at all 8. Moving or speaking so slowly that other people could have noticed. Or the opposite - being so fidgety or restless that you have been moving around a lot more than usual: not at all 9. Thoughts that you would be better off or of hurting yourself in some way: not at all Total score: 0 Depression Screening Interpretation: Negative Depression Screening Done: Yes 20513 - PHQ-9 Billing: Yes Source: Developed by Drs. Avinash Brigid Nam Kurt Kroenke and colleagues, with an educational ming from [employer]. Thrive Questionnaire Date Thrive assessed: 09/05/24 I am a: Patient What is your living situation today?: I choose not to answer this question Within the past 12 months, did the food you bought not last and you didn't have the money to get more?: I choose not to answer this question Within the past 12 months, did you worry whether your food would run out before you got money to buy more?: I choose not to answer this question Do you have trouble paying for medicines?: No Do you have trouble getting transportation to medical appointments?: No Do you have trouble paying your heating and electricity bill?: I choose not to answer this question Do you have trouble taking care of your child, family member or friend?: I choose not to answer this question Do you have trouble with day-to-day activities such as bathing, preparing meals, shopping, managing finances, etc.?: No Are you currently unemployed and looking for a job?: Yes Are you interested in more education?: No THRIVE Score: 0 AUDIT C Alcohol Use Questionnaire (AUDIT-C) 1. How often do you have a drink containing alcohol?: Monthly or less 2. How many drinks containing alcohol do you have on a typical day when you are drinking?: 1 or 2 3. How often do you have six or more drinks on one occasion?: Never Total Score: 1 THERESE-7 AMB Questionnaire THERESE-7 Date THERESE - 7 assessed: 09/05/24 Feeling nervous, anxious, or on edge: 2 = More than half the days Not being able to stop or control worryin = Several days Worrying too much about different things: 1 = Several days Trouble relaxin = Several days Being so restless that it is hard to sit still: 1 = Several days Becoming easily annoyed or irritable: 1 = Several days Feeling afraid as if something awful might happen: 1 = Several days Total THERESE-7 score (0-4 normal; 5-9 mild; 10-14 moderate; 15-21 severe): 8 Source: Developed by Brigid Foreman Kurt Kroenke and colleagues, with an educational ming from [employer]. Review of Systems Const Denies body aches, Denies chills, Denies fever(s), Denies headache(s) and Denies poor appetite Eyes Reports no additional complaints ENT Denies dizziness and Denies headache(s) Card Denies chest pain and Denies dyspnea Resp Denies dyspnea GI Denies nausea and Denies vomiting Reports no additional complaints Musc Reports no additional complaints and Denies abnormal gait Skin/Breast Reports system reviewed and no additional complaints, except as documented Neuro Denies abnormal gait, Denies dizziness and Denies headache(s) Psych Reports no additional complaints Physical exam (Primary Care) Vital Signs: Last Vital Signs Pulse 74 09/05/24 08:54 BP 80/50 L 09/05/24 08:54 Pulse Ox 98 09/05/24 08:54 Oxygen Delivery Method Room Air 09/05/24 08:54 BMI result Body Mass Index 26.2 Tobacco/Smoking Status: Tobacco use Status Tobacco use date assessed 09/05/24 09/05/24 09:04 Patient Tobacco Use Status Never used Tobacco 09/05/24 09:04 Tobacco use type Cigarette 09/05/24 09:04 e-Cigarette/Vaping Use Never Used 09/05/24 09:04 PHQ-9: PHQ-9 Score PHQ-9: Total score 0 09/05/24 11:01 Depression Screening Interpretation: Negative Thrive Assessment: Date of Thrive Assessment Date Thrive assessed 09/05/24 09/05/24 09:04 Const General: cooperative, healthy appearing, comfortable and no acute distress Orientation/consciousness: patient oriented x3 HENMT Head: Yes normocephalic Ears: hearing grossly normal bilaterally, TM normal on the right and Abnormal EAC present excessive cerumen on the left General nose exam: Normal external nose present Eyes General: appearance normal, both eyes and all related structures Conjunctivae: conjunctivae normal Neck Neck: Yes full ROM and Yes no lymphadenopathy Resp Effort & Inspection: normal respiratory effort Auscultation: clear to auscultation bilaterally, no crackles, no rales, no rhonchi and no wheezes Cardio Rate: regular rate Rhythm: regular rhythm Skin General skin exam: no rashes or lesions noted Neuro General: patient oriented x3 Gait exam (Neuro): Normal gait present Extrem General: Yes normal to inspection, Yes full ROM and No edema Psych Affect: normal affect Attitude: cooperative Insight: Good insight present (Psych) Judgement: Good judgement present (Psych) Office Procedures Cerumen Removal From which ear canal was the cerumen removed: right Removal: cerumen loop/spoon Notes: patient tolerated procedure well, no complications and ear canal clear 28419-Hhr Wax Removal by Spoon/Curette Coding Level of Care Code Est Pt Level 3 (00132) Diagnoses Clogged ear H93.8X9 Tick bite W57.XXXA CPT Codes Office Procedure - CPT: 94014-Ugh Wax Removal by Spoon/Curette ([id number]) Additional Codes PHQ-9 - 54169 - PHQ-9 Billing: Yes ([id number]) Assessment & Plan Assessment & Plan (1) Clogged ear: Code(s): H93.8X9 - Other specified disorders of ear, unspecified ear Category: Medical Plan: I removed the debris using a lighted curette from the right ear canal. Ear canal was clear and TM was visualized as intact with well aerated middle ear spaces without perforation or retraction. PLan to follow up in 3 months for repeat ear cleaning. Wants debris was removed patient did have irritation of the ear canal, prescription was sent for Dermotic drops to help with inflammation and irritation. There was excessive amounts of dry skin in the ear canal, avoid the use of drops and Q-tips going forward. (2) Tick bite: Code(s): W57.XXXA - Bitten or stung by nonvenomous insect and other nonvenomous arthropods, initial encounter Category: Medical Plan: Patient requesting lyme panel for suspected tick bite. blood work orders were placed. Plan I reviewed and addressed cerumen impaction and dermatitis by performing debris removal and prescribing dermotic drops. Recommended a quarterly ear cleaning schedule due to recurrent impactions, and ordered a Lyme disease panel given symptoms and exposure history. I advised ongoing rheumatology evaluation for lupus, and discussed arthritis management. Monitoring was advised for hip arthritis. This note was constructed using voice recognition software. While every effort has been made to ensure accuracy and retail sales advisor, still areas may have been included sometimes these areas may affect the content or meeting of the given symptoms. Total time spent caring for the patient today was 20 minutes. This includes time spent before the visit reviewing the chart, time spent during the visit, and time spent after the visit and documentation. Patient was informed and verbally consented to the use of an ambient scribe for clinic note documentation during this visit. Orders: Orders Lyme IgG/IgM w/reflex to WB Today W57.XXXA - Bitten or stung by nonvenomous insect and other nonvenomous arthropods, initial encounter Medications: New fluocinolone acetonide oil 0.01% (DermOtic Oil) 5 drps otic (ears) BID 7 days 20 mL 0RF Refilled cholecalciferol (vitamin D3) 25 mcg PO DAILY 90 tabs 2RF R79.89 - Other specified abnormal findings of blood chemistry escitalopram oxalate 5 mg PO DAILY 90 days 90 tabs 1RF F41.9 - Anxiety disorder, unspecified Discontinued hydrocortisone-acetic acid 1-2 % apply to (cotton) wick; replace wick every 24 hours Discontinued Reason: Patient no longer taking 4 drps otic (ears) Q6H 10 mL 0RF
--- OUTSIDE RECORDS SUMMARY | 2024-09-05 09:01 | XMS_ITS | Clinical Summary ---
Author Organization [facility] [employer] [facility] lin Address [address] [place] [address] Care Team Providers Care Manager Corporate Communications Name Role Phone Pcp, No Primary Care Provider [phone] Social History Tobacco Use Types Packs/Day Years [...] Adults 18 yrs or above (or HM Modifier)([facility]) 1996 Hepatitis C Virus Infection in Adolescents and Adults: Screening (or Modifier) ([facility]) 1996 SDIA Screening Reminder: Annually for all adults ([facility]) 1996 Tobacco Smoking Cessation: i n Adults excluding Women: Behavioral and Pharmacotherapy Interventions ([facility]) 1996 Cervical Cancer Screenin-65 yrs of age (or Modifier) 09/19/1999 Cervical Cancer Screening: P ap every 3 yrs pts age 21-65 09/19/1999 Cervical Cancer: Pap Screeni ng with Modifier timing ([facility]) 09/19/1999 Cervical Cancer: hrHPV alone or with cotesting Pap for Pts 30-65yrs screening every 5yrs ([facility]) 09/19/1999 Colorectal Cancer Screening 45 -75 Yrs (or HM Modifier) 09/19/2023 Colorectal Cancer: FLEXIBLE SIGMOIDOSCOPY Screening every 5 yrs 09/19/2023 Colorectal Cancer: Fecal Immunochemical Test (FIT) Annually [facility] 09/19/2023 Colorectal Cancer: High-sensitivity gFOBT Screening Annually [facility] 09/19/2023 Colorectal Cancer: Stool Cologuard Screening every [...] topic Medical Devices Not on file Insurance [employer] Care Teams Manager Corporate Communications Relationship Specialty Start Date End Date Pcp, Lucy PCP - General Family Medicine 08/23/21
== END 2024-09-05 09:43 | disposition home or self-care (01) ==
LOC: HO.HMCH 08:37
DX: H93.8X1 Other specified disorders of right ear (principal); W57.XXXA Bitten or stung by nonvenomous insect and other nonvenomous arthropods, initial encounter; H61.21 Impacted cerumen, right ear

== ENCOUNTER 2024-10-09 08:07 | Outpatient (AMB) | payer OTHER, SELFPAY ==
--- OUTSIDE RECORDS SUMMARY | 2024-10-09 08:09 | XMS_ITS | Clinical Summary ---
Author Organization [facility] r Address [address] [place] [address] Phone Care Team Providers Care Fire Control Mechanic Name Role Phone Maame Sawyer MD Unavailable [phone] Allergies Active Allergy Reactions Criticality Noted Date Comments Insect Venom 08/28/2020 Mosquito bites more prounounced Latex Anaphylaxis High 08/28/2020 Sulfa (Sulfonamide Antibiotics) Hives 08/28/2020 Medications fluticasone propionate (FLONASE) 50 mcg/actuation nasal sprayIndications:Ac [place] nasopharyngitis 1 spray into each nostril daily. [...] (post-traumatic stress disorder) 07/31/2013 Bipolar 2 disorder ([facility]) 05/10/2012 Overview (08/26/2022): Was in a light study at [place] in 2009. Assessment & Plan (08/28/2020 4:39 [...] areas of likely mod dysplasia. Refer to [employer] Pt opts for expectant management, repeat colpo 10/13 with [facility] 09/27/12 Colpo CBX acute and chronic cervicitis [...] 58 07/31/2023 9:03 AM EDT Temperature 36.8 C (98.3 F) 07/31/2023 9:03 AM EDT Respiratory Rate 18 07/31/2023 9:03 AM EDT Oxygen Saturation 98% 07/31/2023 9:03 AM EDT Inhaled Oxygen Concentration - - Weight 59.1 kg (130 lb 3.2 oz) 07/31/2023 9:03 A M EDT Height - - Body Mass Index - - Plan of Treatment Health Maintenance Due Date Last Done Comments Diabetes Screening 1978 HIV Lifetime Screening 1978 Hepatitis B sAg Lifetime Screening 1978 Hepatitis C Antibody Lifetime Screening 1978 THRIVE SCREENING 1978 Oral Health Screen 02/18/1979 HEIP Disability Screen 09/19/1983 BEHAVIORAL HEALTH SCREEN 1990 Psych Substance Use Screen 1990 Relationship Safety Screening 1993 Cervical Cancer Screening 09/19/1999 Colposcopy 09/19/1999 PAP SMEAR 09/19/1999 Pap + HPV 09/19/1999 MAMMOGRAM 10/22/2021 10/22/2020 Colonoscopy FOBT- Positive 09/19/2023 Colonoscopy 09/19/2023 Colorectal Cancer Screening 09/19/2023 FOBT 09/19/2023 Sigmoidoscopy 09/19/2023 COVID-19 Vaccine (3 - season) 2023 08/20/2020, 07/23/2020 LIPID PANEL 10/15/2024 10/16/2019 INFLUENZA VACCINE (#1) 2024 , 04/10/2021, 01/03/2017, Additional history exists Zoster Vaccine (1 of 2) 2028 DTAP/TDAP VACCINE (3 - Td or Tdap) 02/12/2029 02/12/2019, 01/15/2009 HPV VACCINES Aged Out No longer eligi ble based on patient's age to complete this topic IPV VACCINES Aged Out No longer eligi ble based on patient's age to complete this topic MENINGOCOCCAL B Aged Out No longer el igible based on patient's age to complete this topic Pneumonia Vaccine 0-49 Years Aged Out No longer eligible based on [...] is most likely related to hormonal fluctuations, [id number] right diagnostic mammography right breast ultrasound would [...] Recently Relevant to Health Maintenance Care Teams Fire Control Mechanic Relationship Specialty Start Date End Date Maame Sawyer MD [address] [place] [address] PCP - Insurance 08/19/22
--- OUTSIDE RECORDS SUMMARY | 2024-10-09 08:09 | XMS_ITS | Clinical Summary ---
Author Organization [facility] Address [address] [place] [address] Care Team Providers Care Preflight Inspector Name Role Phone Maame Fried MD Primary Care Provider [phone] Allergies Active Allergy Reactions Criticality Noted Date [...] Cancer Screening 2018 Colon Cancer Screening 09/19/2023 CoVid-19 Vaccine ( season) 2023 08/20/2020, 07/23/2020 Influenza (Seasonal) 11/01/2024 01/03/2017, 01/06/2015, 01/06/2015, Additional history exists Tetanus Diphtheria and Pertussis Vaccines (TD and [...] patient's age to complete this topic Insurance [facility] REFERRAL [id number] Care Teams Preflight Inspector Relationship Specialty Start Date End Date Maame Fried MD [address] [place] [address] PCP - General 04/28/22
[2024-10-09 08:22] VITALS: BP 102/68; PULSE 73; TEMP 36.3; O2SAT 98; BMI 26.2
--- NOTE | 2024-10-09 08:22 | MHC.PC.OV ---
Vital Signs 10/09/24 08:22 Height 5 ft Weight 134 lb BMI 26.2 BP 102/68 Blood Pressure Location Lt brachial Position Sitting Pulse 73 Pulse Source Pulse Oximeter Temp 97.3 F Temp Source Temporal Artery Scan Pulse Oximetry (%) 98 Oxygen Delivery Method Room Air Intake Visit Reasons: discuss leg pain Processing Supervisor Required: No Accompanied by: Self / Same As Patient Allergies latex Allergy (Mild, Verified 10/09/24 08:24) Anaphylaxis Sulfa (Sulfonamide Antibiotics) Allergy (Mild, Verified 10/09/24 08:24) Hives Medication List - Last Reconciled 10/09/24 by Makenzie Lantigua PA-C cholecalciferol (vitamin D3) 25 mcg PO DAILY epinephrine (EpiPen 2-Duy) 0.3 mg (0.3 mL) IM ONCE PRN escitalopram oxalate 5 mg PO DAILY 90 days estradiol 1.25 gram/actuation (EstroGel) 1.25 grams transdermal DAILY fluocinolone acetonide oil 0.01% (DermOtic Oil) 5 drps otic (ears) BID 7 days miconazole nitrate 2% (Miconazole-7) 1 appful vaginal BEDTIME 7 days trazodone 50 mg PO BEDTIME PRN triamcinolone acetonide 0.1% 1 appl topical DAILY Tobacco use date assessed: 09/05/24 Dental Screening Dental Screen Date: 09/05/24 HPI discuss leg pain HPI Details 43-year-old female with past medical history of anxiety, depression, bipolar 2, IBS last seen 09/2024 coming in for acute problem.? Presenting with right hip pain and concerns about potential lupus and perimenopausal symptoms. Osteoarthritis of the right hip was identified, with episodes of significant pain exacerbated by stress and prolonged sitting or standing. The patient experiences pain primarily on the right side, occasionally affecting the left side, without burning or tingling sensations. She denies any numbness, tingling, burning sensation in the leg and describes the pain more as discomfort. Pain is worsened with prolonged sitting or standing and relieved with CBD cream. [facility] Medical History Subacute cutaneous lupus erythematosus Anxiety Bipolar disorder IBS (irritable bowel syndrome) Vitamin A deficiency Depression Surgical History Hx of wisdom tooth extraction Hx of dilation and curettage History of colposcopy Family History Father Colon cancer Cancer of kidney Maternal Grandfather Colon cancer Social History Household Members Other:: I am in between houses, staying with friends Housing: Apartment Are you a primary critical care technician to a significant other at home: No Do you presently have visiting nurse or other home services: No Alcohol intake: never Patient Tobacco Use Status: Never used Tobacco e-Cigarette/Vaping Use: Never Used Second Hand Smoke Exposure: No service: No Current occupational status: unemployed and student Current occupation: [employer] Cognitive needs: No Hearing needs: No Vision needs: Yes Female Reproductive History Menstrual Age of Menarche: 10 Questionnaire Thrive Questionnaire Date Thrive assessed: 09/03/24 I am a: Patient What is your living situation today?: I choose not to answer this question Within the past 12 months, did the food you bought not last and you didn't have the money to get more?: I choose not to answer this question Within the past 12 months, did you worry whether your food would run out before you got money to buy more?: I choose not to answer this question Do you have trouble paying for medicines?: No Do you have trouble getting transportation to medical appointments?: No Do you have trouble paying your heating and electricity bill?: I choose not to answer this question Do you have trouble taking care of your child, family member or friend?: I choose not to answer this question Do you have trouble with day-to-day activities such as bathing, preparing meals, shopping, managing finances, etc.?: No Are you currently unemployed and looking for a job?: Yes Are you interested in more education?: No THRIVE Score: 0 THERESE-7 AMB Questionnaire THERESE-7 Date THERESE - 7 assessed: 09/05/24 Source: Developed by Drs. Avinash Hubbard, Brigid Bolanos, Nicola Connolly and colleagues, with an educational ming from [employer]. Review of Systems Const Denies body aches, Denies chills and Denies fever(s) Eyes Reports no additional complaints Card Denies chest pain, Denies edema and Denies dyspnea Resp Denies dyspnea Musc Reports as per HPI and Denies abnormal gait Neuro Denies abnormal gait Psych Reports no additional complaints Physical exam (Primary Care) Vital Signs: Last Vital Signs Temp 97.3 F 10/09/24 08:22 Pulse 73 10/09/24 08:22 BP 102/68 10/09/24 08:22 Pulse Ox 98 10/09/24 08:22 Oxygen Delivery Method Room Air 10/09/24 08:22 BMI result Body Mass Index 26.2 Tobacco/Smoking Status: Tobacco use Status Tobacco use date assessed 09/05/24 10/09/24 08:24 Patient Tobacco Use Status Never used Tobacco 10/09/24 08:24 Tobacco use type 10/09/24 08:24 e-Cigarette/Vaping Use Never Used 10/09/24 08:24 Thrive Assessment: Date of Thrive Assessment Date Thrive assessed 09/03/24 10/09/24 08:24 Const General: cooperative, healthy appearing, comfortable and no acute distress Orientation/consciousness: patient oriented x3 HENMT Head: Yes normocephalic Ears: hearing grossly normal bilaterally General nose exam: Normal external nose present Eyes General: appearance normal, both eyes and all related structures Conjunctivae: conjunctivae normal Neck Neck: Yes full ROM and Yes no lymphadenopathy Resp Effort & Inspection: normal respiratory effort Auscultation: clear to auscultation bilaterally, no crackles, no rales, no rhonchi and no wheezes Cardio Rate: regular rate Rhythm: regular rhythm Back/Spine/Pelvis Other: no tenderness to palpation of spine and paraspinal muscles. No tenderness to palpation of lashanda hips. intact strength and sensation of lashanda LE Skin General skin exam: no rashes or lesions noted Neuro General: patient oriented x3 Gait exam (Neuro): Normal gait present Extrem General: Yes normal to inspection, Yes full ROM and No edema Psych Affect: normal affect Attitude: cooperative Insight: Good insight present (Psych) Judgement: Good judgement present (Psych) Coding Level of Care Code Est Pt Level 3 (63809) Diagnoses Right hip pain M25.551 Assessment & Plan Assessment & Plan (1) Right hip pain: Comment: mild OA 2021 Code(s): M25.551 - Pain in right hip Category: Medical Plan: The management plan for the patient's osteoarthritis includes the use of heating pads and Tylenol for pain relief, along with the application of CBD creams and Voltaren Gel to reduce inflammation. Physical therapy is recommended to strengthen the muscles around the hip and reduce stress on the joint, with a referral provided for further sessions. The patient is encouraged to maintain an active lifestyle through regular exercise, which is beneficial for both osteoarthritis management and overall health. Repeat XR is ordered to monitor progression of arthritis. Plan This note was constructed using voice recognition software. While every effort has been made to ensure accuracy and package pick up, still areas may have been included sometimes these areas may affect the content or meeting of the given symptoms. Total time spent caring for the patient today was 20 minutes. This includes time spent before the visit reviewing the chart, time spent during the visit, and time spent after the visit and documentation. Patient was informed and verbally consented to the use of an ambient scribe for clinic note documentation during this visit. Orders: Orders MMR IgG Measles Mumps Rubella Today Z00.00 - Encounter for general adult medical examination without abnormal findings PT Evaluation and Treatment Today M25.551 - Pain in right hip XR hip RT w PEL1V Today M25.551 - Pain in right hip
== END 2024-10-09 08:53 | disposition home or self-care (01) ==
DX: M25.551 Pain in right hip (principal)

== ENCOUNTER 2024-10-09 08:07 | Outpatient (REF) | payer OTHER, SELFPAY ==
--- NOTE | ~2024-10-09 | XR_ITS ---
EXAMINATION: XR HIP 1 VIEW RIGHT WITH PELVIS HISTORY: M25.551 - Pain in right hip COMPARISON: Comparison is made with the prior examination dated 12/16/2021. FINDINGS: A single AP view of the pelvis and two views of the right hip are submitted. Osseous mineralization is normal. There is no fracture or dislocation. There is mild joint space narrowing. The soft tissues are unremarkable. XR/XR hip RT w PEL1V IMPRESSION: Mild joint space narrowing. Electronically signed by: Avinash Fagan MD 10/09/2024 09:51 AM EDT
[2024-10-10 09:42] LABS: Rubeola IgG (Measles) 57.60 AU/mL
== END 2024-10-09 08:08 | disposition home or self-care (01) ==
LOC: HO.XRAY 08:07
DX: Z00.00 Encounter for general adult medical examination without abnormal findings (principal); M25.551 Pain in right hip; F41.9 Anxiety disorder, unspecified; F31.9 Bipolar disorder, unspecified; K58.9 Irritable bowel syndrome, unspecified
CPT/HCPCS: 36415; 73502; 86735; 86762; 86765; 99212

== ENCOUNTER → 2024-10-09 09:29 | Outpatient (BNV) | payer OTHER, SELFPAY | PROVIDERS: Visit Provider Radiology Diagnostic Radiology | DX: M25.851 Other specified joint disorders, right hip (principal) | CPT/HCPCS: 73502 ==

== ENCOUNTER 2024-11-12 09:43 | Outpatient (AMB) | payer OTHER, SELFPAY ==
--- NOTE | 2024-11-12 10:00 | A.OFFVIS_ITS ---
Vital Signs 11/12/24 10:05 Height 5 ft Weight 137 lb 12.623 oz BMI 26.9 BP 100/70 Blood Pressure Location Lt brachial Position Sitting Pulse 54 Pulse Source Pulse Oximeter Pulse Oximetry (%) 97 Oxygen Delivery Method Room Air Intake Visit Reasons: +JACK Intake Note: Patient presents for +JACK follow up. Allergies latex Allergy (Mild, Verified 11/12/24 10:05) Anaphylaxis Sulfa (Sulfonamide Antibiotics) Allergy (Mild, Verified 11/12/24 10:05) Hives HPI Comments Details: Patient is a 44-year-old female with anxiety/depression, bipolar who presents today for follow up of subacute cutaneous lupus Interval History: Patient initially seen 05/22/24 with me - Not on any rheum medications - Complained of overwhelming fatigue and intermittent joint pain: particularly right hip pain - No evidence of active lupus on exam - No new medications added Today, - Not on any rheum medications - Still with overwhelming fatigue and intermittent joint pain of her right hip. Recent XR shows slight progression Denies alopecia, oral/nasal ulcers, sicca symptoms, lymphadenopathy, chest pain/shortness of breath, inflammatory type joint pain, foamy urine, lower extremity edema, muscle weakness, Raynaud's Also denies history of seizure, CVA, psychosis, history of kidney problems, history of cytopenias, history of VTE including PE or DVTs Rheumatologic History: Patient diagnosed with subacute cutaneous lupus based on dermatology review. Deferred biopsy as she did not want a facial scars. Cover it and manages this with topicals Current Rheumatology Medication(s): [facility] Medical History Subacute cutaneous lupus erythematosus Anxiety Bipolar disorder IBS (irritable bowel syndrome) Vitamin A deficiency Depression Surgical History Hx of wisdom tooth extraction Hx of dilation and curettage History of colposcopy Family History Father Colon cancer Cancer of kidney Maternal Grandfather Colon cancer Social History Household Members Other:: I am in between houses, staying with friends Housing: Apartment Are you a primary career counselor to a significant other at home: No Do you presently have visiting nurse or other home services: No Alcohol intake: never Patient Tobacco Use Status: Never used Tobacco e-Cigarette/Vaping Use: Never Used Second Hand Smoke Exposure: No service: No Current occupational status: unemployed and student Current occupation: [employer] Cognitive needs: No Hearing needs: No Vision needs: Yes Female Reproductive History Menstrual Age of Menarche: 10 Review of Systems Const Details: Review of Systems Constitutional: Denies fever, chills, weight loss ENT: Denies vision changes, eye pain or eye redness, dental caries, dry mouth GI: Denies nausea, vomiting, diarrhea, abdominal pain, change in BM Pulm: Denies SOB, WING, hemoptysis, wheezing Cards: Denies chest pain, palpitations Skin: Denies nail changes, photosensitivity, SAUSAGE TIER: Denies headaches, weakness, paresthesias, recurrent falls MSK: as per HPI All other systems reviewed and are unremarkable except noted above Physical Exam Exam Exam: Vital signs reviewed Physical Examination CONSTITUITIONAL Patient alert and cooperative. Well appearing and in no apparent painful distress HEENT Conjunctiva and sclera clear. No lymphadenopathy. MSK Hands * Right Hand: Able to make a fist. No swelling or tenderness to palpation of these joints. No deformities noted. * Left Hand: Able to make a fist. No swelling or tenderness to palpation of thes e joints. No deformities noted. Wrists * Right Wrist: Full ROM. 70 degrees of wrist flexion, 80 degrees of wrist extension. No swelling or TTP * Left Wrist: Full ROM. 70 degrees of wrist flexion, 80 degrees of wrist extension. No swelling or TTP Elbows * Right Elbow: Full ROM. No swelling or TTP. No TTP of the medial and lateral epicondyles * Left Elbow: Full ROM. No swelling or TTP. No TTP of the medial and lateral epicondyles Shoulders * Right shoulder: Full ROM. No swelling noted. No TTP of the AC joint, subacromial bursa or posterior shoulder * Left shoulder: Full ROM. No swelling noted. No TTP of the AC joint, subacromial bursa or posterior shoulder Hips * Right hip: Good ROM. No pain elicited with hip flexion/internal rotation/external rotation * Left hip: Good ROM. No pain elicited with hip flexion/internal rotation/external rotation Hip bursa: No tenderness to palpation bilaterally Knees * Right knee: Full ROM. No swelling noted. No TTP of the knee joint lie or pes anserine bursa * Left knee: Full ROM. No swelling noted. No TTP of the knee joint lie or pes anserine bursa. Ankles * Right ankle: Good ankle dorsiflexion and plantar flexion. No swelling. No TTP of the ankle joint * Left ankle: Good ankle dorsiflexion and plantar flexion. No swelling. No TTP of the ankle joint Feet * Right foot: Negative squeeze test * Left foot: Negative squeeze test Tender points? * No tenderness to palpation of the bilateral trapezius, supraspinatus, anterior costochondral junctions, bilateral suboccipital muscle insertions SKIN Malar rash noted Normal nailfold capillaries Results Reviewed Results Reviewed: Laboratory Tests 05/22/24 11:32 WBC 6.4 RBC 4.90 Hgb 13.3 Hct 39.5 Plt Count 278 ESR 3 Sodium 140 Potassium 3.9 Chloride 107 Carbon Dioxide 24 BUN 9 Creatinine 0.75 AST 28 ALT 24 C-Reactive Protein 0.17 Laboratory Tests 01/05/24 05/22/24 07:25 11:32 JACK Screen POSITIVE A JACK Titer 1:320 H SS-A/Ro Antibody <1.0 NEG SS-B/La Antibody <1.0 NEG Sm (Stone) Antibody <1.0 NEG SM/CONSERVATION ENGINEER IgG Antibody <1.0 NEG Double Strand DNA Ab <1 Beta-2-GPI IgG Ab <2.0 Beta-2-GPI IgA Ab <2.0 Beta-2-GPI IgM Ab <2.0 Anti-Cardiolipin IgG Ab <2.0 Anti-Cardiolipin IgM Ab <2.0 Complement C3 139 Complement C4 26 Assessment & Plan Assessment & Plan (1) Subacute cutaneous lupus erythematosus: Code(s): L93.1 - Subacute cutaneous lupus erythematosus Category: Medical Plan: #Subacute cutaneous lupus Patient is a 44 year old female with non biopsy-proven subacute cutaneous lupus based on pattern of rash and positive JACK. No evidence of systemic involvement of her lupus at this time. Her current signs and symptoms are not related to an underlying autoimmune cause of her condition. Discussed that we can potentially try Plaquenil but she deferred this at that time wanting to try more holistic approaches. Plan - Continue topicals as per derm - RTC 6 months - Labs before visit: CBC, CMP, ESR, CRP, C3, C4, dsDNA, UA, UPC Plan I spent 25 minutes reviewing the record and labs, taking a history, examining the patient, discussing the treatment plan and documenting in the medical record Coding Level of Care Code Est Pt Level 3 (77332) Complex EM visit Add On G2211 Diagnoses Subacute cutaneous lupus erythematosus L93.1
[2024-11-12 10:05] VITALS: BP 100/70; PULSE 54; O2SAT 97; BMI 26.9
--- OUTSIDE RECORDS SUMMARY | 2024-11-12 10:25 | XMS_ITS | Clinical Summary ---
Author Organization [facility] Address [address] [place] [address] Care Team Providers Care Pole Cutter Name Role Phone Maame Fried MD Primary Care Provider [phone] Allergies Active Allergy Reactions Criticality Noted Date [...] patient's age to complete this topic Insurance [facility] RE[facility] [address] [place] Care Teams Pole Cutter Relationship Specialty Start Date End Date Maame Fried MD [address] [facility] [place] [address] PCP - General 04/28/22
--- OUTSIDE RECORDS SUMMARY | 2024-11-12 10:25 | XMS_ITS | Clinical Summary ---
Author Organization [facility] [employer] [facility] lin Address [address] [place] [address] Care Team Providers Care Wireless Technician Name Role Phone Pcp, No Primary Care Provider [phone] Social History Tobacco Use Types Packs/Day Years [...] Adults 18 yrs or above (or HM Modifier)([facility]) 1996 Hepatitis C Virus Infection in Adolescents and Adults: Screening (or Modifier) ([facility]) 1996 SDNE Screening Reminder: Annually for all adults ([facility]) 1996 Tobacco Smoking Cessation: i n Adults excluding Women: Behavioral and Pharmacotherapy Interventions ([facility]) 1996 Cervical Cancer Screenin-65 yrs of age (or Modifier) 09/19/1999 Cervical Cancer Screening: P ap every 3 yrs pts age 21-65 09/19/1999 Cervical Cancer: Pap Screeni ng with Modifier timing ([facility]) 09/19/1999 Cervical Cancer: hrHPV alone or with cotesting Pap for Pts 30-65yrs screening every 5yrs ([facility]) 09/19/1999 Colorectal Cancer Screening 45 -75 Yrs (or HM Modifier) 09/19/2023 Colorectal Cancer: FLEXIBLE SIGMOIDOSCOPY Screening every 5 yrs 09/19/2023 Colorectal Cancer: Fecal Immunochemical Test (FIT) Annually [facility] 09/19/2023 Colorectal Cancer: High-sensitivity gFOBT Screening Annually [facility] 09/19/2023 Colorectal Cancer: Stool Cologuard Screening every 3 yrs 09/19/2023 Colorectal Cancer:CT Colonography Screening every 5 yrs 09/19/2023 COVID-19 Vaccine Screening: Initial Series and Booster Status ([facility]) ( - 2023- season) 2023 08/20/2020, 07/23/2020 Flu Vaccination: Yearly for ages 18mos through 64 years (or Modifier)([facility]) 11/01/2024 Zoster/Shingles Vaccine Seri es Screening: Adults aged 18+ yrs (or HM Modifiers)([facility]) (1 of 2) 2028 DTaP/Tdap/Td Vaccines ([facility]) (3 - Td or Tdap) 02/12/2029 02/12/2019, 01/15/2009 Pneumococcal Vaccination Screening: Pts 0-19 & 19-49 yrs of age ([facility]) Aged Out No longer eligible based on patient's age to complete this topic Medical Devices Not on file Care Teams Wireless Technician Relationship Specialty Start Date End Date Pcp, No PCP - General Family Medicine 08/23/21
--- OUTSIDE RECORDS SUMMARY | 2024-11-12 10:25 | XMS_ITS | Clinical Summary ---
Author Organization [facility] Address [address] [place] [address] Phone Care Team Providers Care Calculus Professor Name Role Phone Unknown, Unknown Primary Care Provider Unavai lable Allergies Active Allergy Reactions Criticality Noted Date Comments Insect Venom Low 08/28/2020 Mosquito bites more prounounced Latex Swelling,Anaphylaxis High 03/26/2009 Sulfa (Sulfonamide Antibiotics) Hives High 12/24/2009 sulfamethoxasole allergy Medications cholecalciferol (VITAMIN D3) 25 MCG (1,000 unit) tablet Take 2,000 Units by mouth. 12/30/2016 Active Active Problems No known active problems Immunizations Immunization Administration Dates Next Due COVID-19 (Pre-01/23) Moderna Vaccine, mRNA, PF 08/20/2020,07/23/2020 Hepatitis A, Adult 10/30/2009,01/15/2009 Hepatitis B Adult 02/18/2013,04/05/2012,03/04/20 11 INFLUENZA, SPLIT VIRUS, TRIV ALENT W/ PRESERVATIVE IM 01/03/2017,02/18/2013,04/05/2012,2008 Influenza Quadrivalent Intranasal 01/06/2015, Td (Adult),Absorbed,Preserva tive Free,Lf Unspecified 02/12/2019 Tdap [...] with a working camera? Not on file Comments Unknown Sex and Gender Information Value Date Recorded Sex Assigned at Female 10/23/2020 11:08 AM EDT Legal Sex Female 7:26 PM EST Gender Identity Non-binary 10/23/2020 11:08 AM EDT Sexual Orientation Not on file Last Filed Vital Signs Vital Sign Reading Time Taken Comments Blood Pressure 147/82 01/15/2021 2:05 PM EDT Pulse 60 01/15/2021 2:05 PM EDT Temperature 36.4 C (97.5 F) 01/15/2021 2:05 PM EDT Respiratory Rate 18 01/15/2021 2:05 PM EDT Oxygen Saturation 100% 01/15/2021 2:05 PM EDT Inhaled Oxygen Concentration - - Weight - - Height - - Body Mass Index - - Plan of Treatment Health Maintenance Due Date Last Done Comments LIPID PANEL 1978 DEPRESSION SCREENING 1990 SMOKING Hx and SMOKELESS TOBACCO SCREENING 09/19/1991 HIV ONE-TIME SCREENING (18-6 5 YEARS) 1996 PNEUMOCOCCAL VACCINES (0-49 years) (1 of 2 - PCV) 1997 PAP SMEAR 09/28/2004 09/28/2001 MAMMOGRAM 10/22/2022 10/22/2020, 10/16/2019, 12/19/2018 COLOGUARD 09/19/2023 COLONOSCOPY 09/19/2023 COLORECTAL CANCER SCREENING 09/19/2023 FIT TEST 09/19/2023 FOBT 09/19/2023 SIGMOIDOSCOPY 09/19/2023 VIRTUAL COLONOSCOPY 09/19/2023 COVID-19 VACCINE (3 2023-2 5 season) 2023 08/20/2020, 07/23/2020 Adult Td,Tdap Booster 02/12/2029 02/12/2019 , 01/15/2009 HEPATITIS A VACCINES Aged Out 10/30/2009, 01/15/2009 No longer eligible based on patient's age to complete this topic HEPATITIS C SCREENING Completed 10/16/2019 HIB VACCINES Aged Out No longer eligi ble based on patient's age to complete this topic MENINGOCOCCAL VACCINES (ACWY) Aged Out No longer eligible based on patient's age to complete this topic MENINGOCOCCAL VACCINES (B) Aged Out N o longer eligible based on patient's age to complete this topic Medical Devices Not on file Procedures Procedure Name Priority Date/Time Associated Diagnosis Comments PAP TEST Routine 09/28/2001 12:00 AM EDT from Last 3 Months or Most Recently Relevant to Health Maintenance Results * Pap Smear (09/28/2001 12:00 AM EDT) 09/28/2001 Narrative [facility] - 10/29/2001 2:44 PM EDT Accession Number: [id number] Report Status: Final Type: Cytology Cytology Report: [id number] DATE TAKEN: SEP 02 ACCESSIONED ON: OCT 02 at 11:15 CLINICAL DATA: QUESTION EXPOSURE TO KATRINA Menstrual Status: {None Provided} Date of last Menstrual Period: 09/20/01 FINAL DIAGNOSIS CERVIX (PREP) (CX(PREP)): SATISFACTORY FOR EVALUATION. WITHIN NORMAL LIMITS. SQUAMOUS METAPLASIA. Diagnosis by: LAUREN aMyer(ASCP) Signed On: OCT 02 Reviewer: LAUREN Ramírez(ASCP) [facility]: [facility] REPORTS TO: Nita Mckeon M.D. Specimen: CX(PREP) Direct Smears Received: 1 us Conversion Provider Not In Sys CYTOLOGY ORDERABL ES Final Result [facility] [address] [place] [address], [facility] from Last 3 Months or Most Recently Relevant to Health Maintenance Insurance [facility] POS EPO [facility] POS EPO [facility] O POS [facility]PO [facility] O POS EPO [facility] POS EPO [facility] O POS EPO [facility] POS EPO [facility] PUBLIC PLANS DIRECT Care Teams Calculus Professor Relationship Specialty Start Date End Date Unknown, Unknown, PCP - General 08/28/19 Additional Source Comments The information contained in this document represents components of the legal health record. It is not the complete legal health record.[facility]
--- OUTSIDE RECORDS SUMMARY | 2024-11-12 10:25 | XMS_ITS | Clinical Summary ---
Author Organization [facility] r Address [address] [place] [address] Phone Care Team Providers Care Quality Assurance Qa Lab Analyst Name Role Phone Maame Sawyer MD Unavailable [phone] Allergies Active Allergy Reactions Criticality Noted [...] (post-traumatic stress disorder) 07/31/2013 Bipolar 2 disorder ([facility]) 05/10/2012 Overview (08/26/2022): Was in a light study at [place] in 2009. Assessment & Plan (08/28/2020 4:39 [...] areas of likely mod dysplasia. Refer to bench scientist Pt opts for expectant management, repeat colpo 10/13 with Harm Reduction Worker 09/27/12 Colpo CBX acute and chronic cervicitis [...] 1978 HIV Lifetime Screening 1978 Hepatitis B Lifetime Screening 1978 Hepatitis C Antibody Lifetime [...] is most likely related to hormonal fluctuations, xxj-ufqxhcezipm-tj right diagnostic mammography right breast ultrasound would [...] Recently Relevant to Health Maintenance Care Teams Quality Assurance Qa Lab Analyst Relationship Specialty Start Date End Date Maame Sawyer MD [address] [place] [address] PCP - Insurance 08/19/22
--- OUTSIDE RECORDS SUMMARY | 2024-11-12 10:25 | XMS_ITS | Clinical Summary ---
Author Organization [facility] (Formerly [facility]) Address [address] [id number] Care Team Providers Care Cargo Worker Name Role Phone Unavailable Primary Care Provider [...] 62 04/27/2024 9:22 AM EST Temperature 36.9 C (98.4 F) 04/27/2024 9:22 AM EST Respiratory Rate 18 04/27/2024 9:22 AM EST [...] 09/19/2023 Colonoscopy 09/19/2023 Colorectal Cancer Screening 09/19/2023 COVID-19 Vaccine ( season) 2023 08/20/2020, 07/23/2020 Full Lipid Panel Testing 10/15/2024 10/16/2019 Influenza Vaccine (#1) 2024 7, 01/06/2015, 01/06/2015, Additional history exists Shingrix Vaccine (1 of 2) 2028 DTAP/TDAP/TD [...] patient's age to complete this topic Insurance [facility]
== END 2024-11-12 10:35 | disposition home or self-care (01) ==
LOC: HO.RHES 09:43
PROVIDERS: Visit Provider Student in an Organized Health Care Education/Training Program
DX: L93.1 Subacute cutaneous lupus erythematosus (principal)
CPT/HCPCS: 99213

== ENCOUNTER → 2024-11-12 09:43 | Outpatient (BNVA) | payer OTHER, SELFPAY | PROVIDERS: Visit Provider Student in an Organized Health Care Education/Training Program | DX: L93.1 Subacute cutaneous lupus erythematosus (principal); R76.8 Other specified abnormal immunological findings in serum | CPT/HCPCS: 99212 ==

== ENCOUNTER 2024-12-10 08:29 | Outpatient (REF) | payer OTHER, SELFPAY ==
[2024-12-10 13:53] LABS: Appearance Urine Clear; Glucose Urine UA Negative (Negative); PH 6.5 (5.0-9.0); Specific Gravity - Urine 1.025 (1.005-1.025)
[2024-12-10 15:06] LABS: Protein/Creatinine Ratio, Ur 0.04 (<0.2); Total Protein Urine Random 8 mg/dL (<12)
[2024-12-14 14:18] LABS: Vitamin D 25-OH, D2 5 ng/mL; Vitamin D 25-OH, D3 15 ng/mL; Vitamin D 25-OH, Total 20 ng/mL (30-100)
== END 2024-12-10 08:30 | disposition home or self-care (01) ==
LOC: HO.LAB 08:29
PROVIDERS: Absent Provider Student in an Organized Health Care Education/Training Program
DX: Z00.00 Encounter for general adult medical examination without abnormal findings (principal); L93.1 Subacute cutaneous lupus erythematosus; H93.8X3 Other specified disorders of ear, bilateral; R35.89 Other polyuria; Z79.899 Other long term (current) drug therapy
CPT/HCPCS: 36415; 69210; 81003; 82306; 82570; 84156; 96127; 99212

== ENCOUNTER 2024-12-10 08:29 | Outpatient (AMB) | payer OTHER, SELFPAY ==
--- NOTE | 2024-12-10 08:36 | MHC.PC.OV ---
Vital Signs 12/10/24 08:37 Weight 136 lb 2 oz BP 102/64 Blood Pressure Location Lt brachial Position Sitting Pulse 60 Pulse Source Pulse Oximeter Pulse Oximetry (%) 97 Oxygen Delivery Method Room Air Intake Visit Reasons: ear cleaning Animal Physiology Teacher Required: No Accompanied by: Self / Same As Patient Allergies latex Allergy (Mild, Verified 12/10/24 08:50) Anaphylaxis Sulfa (Sulfonamide Antibiotics) Allergy (Mild, Verified 12/10/24 08:50) Hives Medication List - Last Reconciled 12/10/24 by Makenzie Lantigua PA-C cholecalciferol (vitamin D3) 25 mcg PO DAILY epinephrine (EpiPen 2-Duy) 0.3 mg (0.3 mL) IM ONCE PRN escitalopram oxalate 5 mg PO DAILY 90 days estradiol 1.25 gram/actuation (EstroGel) 1.25 grams transdermal DAILY fluocinolone acetonide oil 0.01% (DermOtic Oil) 5 drps otic (ears) BID 7 days miconazole nitrate 2% (Miconazole-7) 1 appful vaginal BEDTIME 7 days trazodone 50 mg PO BEDTIME PRN triamcinolone acetonide 0.1% 1 appl topical DAILY Tobacco use date assessed: 12/10/24 Dental Screening Dental Screen Date: 12/10/24 Did you have a dental visit in the last 12 months?: Yes Did you have a dental problem in the last 6 months where you did not have access to dental care?: No Was dental information given to patient?: Patient has dentist HPI ear cleaning HPI Details 44-year-old female coming to the office for ear cleaning. Reports ear clogged feeling and dry skin in bilateral ears. [facility] Medical History Subacute cutaneous lupus erythematosus Anxiety Bipolar disorder IBS (irritable bowel syndrome) Vitamin A deficiency Depression Surgical History Hx of wisdom tooth extraction Hx of dilation and curettage History of colposcopy Family History Father Colon cancer Cancer of kidney Maternal Grandfather Colon cancer Social History Household Members Other:: I am in between houses, staying with friends Housing: Apartment Are you a primary health care / medical job titles to a significant other at home: No Do you presently have visiting nurse or other home services: No Alcohol intake: never Patient Tobacco Use Status: Never used Tobacco e-Cigarette/Vaping Use: Never Used Second Hand Smoke Exposure: No service: No Current occupational status: unemployed and student 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 1. Little interest or pleasure in doing things: not at all 2. Feeling down, depressed, or hopeless: not at all 3. Trouble falling or staying asleep, or sleeping too much: more than half the days 4. Feeling tired or having little energy: nearly every day 5. Poor appetite or overeating: not at all 6. Feeling bad about yourself - or that you are a failure or have let yourself or your family down: not at all 7. Trouble concentrating on things, such as reading the newspaper or watching television: more than half the days 8. Moving or speaking so slowly that other people could have noticed. Or the opposite - being so fidgety or restless that you have been moving around a lot more than usual: nearly every day 9. Thoughts that you would be better off or of hurting yourself in some way: not at all Total score: 10 38519 - PHQ-9 Billing: Yes Source: Developed by Drs. Avinash Hubbard, Brigid Bolanos, Nicola Connolly and colleagues, with an educational ming from [employer]. Thrive Questionnaire Date Thrive assessed: 12/10/24 I am a: Patient What is your living situation today?: I choose not to answer this question Within the past 12 months, did the food you bought not last and you didn't have the money to get more?: I choose not to answer this question Within the past 12 months, did you worry whether your food would run out before you got money to buy more?: I choose not to answer this question Do you have trouble paying for medicines?: No Do you have trouble getting transportation to medical appointments?: No Do you have trouble paying your heating and electricity bill?: I choose not to answer this question Do you have trouble taking care of your child, family member or friend?: I choose not to answer this question Do you have trouble with day-to-day activities such as bathing, preparing meals, shopping, managing finances, etc.?: No Are you currently unemployed and looking for a job?: Yes Are you interested in more education?: No THRIVE Score: 0 AUDIT C Alcohol Use Questionnaire (AUDIT-C) 1. How often do you have a drink containing alcohol?: Monthly or less 2. How many drinks containing alcohol do you have on a typical day when you are drinking?: 1 or 2 3. How often do you have six or more drinks on one occasion?: Never Total Score: 1 THERESE-7 AMB Questionnaire THERESE-7 Date THERESE - 7 assessed: 12/10/24 Feeling nervous, anxious, or on edge: 0 = Not at all Not being able to stop or control worryin = More than half the days Worrying too much about different things: 0 = Not at all Trouble relaxin = More than half the days Being so restless that it is hard to sit still: 3 = Nearly every day Becoming easily annoyed or irritable: 0 = Not at all Feeling afraid as if something awful might happen: 3 = Nearly every day Total THERESE-7 score (0-4 normal; 5-9 mild; 10-14 moderate; 15-21 severe): 10 Source: Developed by Drs. Avinash Hubbard, Brigid Bolanos, Nicola Connolly and colleagues, with an educational ming from [employer]. THERESE-7 Assessment Billing THERESE-7 Assessment Tool: THERESE-7 Assessment 01677 Review of Systems ENT Reports as per HPI Physical exam (Primary Care) Vital Signs: Last Vital Signs Pulse 60 12/10/24 08:37 BP 102/64 12/10/24 08:37 Pulse Ox 97 12/10/24 08:37 Oxygen Delivery Method Room Air 12/10/24 08:37 Tobacco/Smoking Status: Tobacco use Status Tobacco use date assessed 12/10/24 12/10/24 08:45 Patient Tobacco Use Status Never used Tobacco 12/10/24 08:45 Tobacco use type 10/09/24 10:04 e-Cigarette/Vaping Use Never Used 12/10/24 08:45 PHQ-9: PHQ-9 Score PHQ-9: Total score 10 12/10/24 08:45 Thrive Assessment: Date of Thrive Assessment Date Thrive assessed 12/10/24 12/10/24 08:45 Const General: cooperative, healthy appearing, comfortable and no acute distress HENMT Other: Wax and squamous debris in bilateral ears Head: Yes normocephalic Ears: hearing grossly normal bilaterally General nose exam: Normal external nose present Neck Neck: Yes full ROM and Yes no lymphadenopathy Resp Effort & Inspection: normal respiratory effort Cardio Rate: regular rate Skin General skin exam: no rashes or lesions noted Psych Affect: normal affect Attitude: cooperative Insight: Good insight present (Psych) Judgement: Good judgement present (Psych) Office Procedures Cerumen Removal Removal: cerumen loop/spoon Notes: patient tolerated procedure well, no complications and ear canal clear [id number] Wax Removal by Spoon/Curette Coding Level of Care Code Procedure Only Diagnoses Clogged ear H93.8X9 CPT Codes Office Procedure - CPT: 62101-Ago Wax Removal by Spoon/Curette ([id number]) Additional Codes THERESE-7 Assessment Billing - THERESE-7 Assessment Tool: THERESE-7 Assessment 52305 ([id number]) PHQ-9 - 63133 - PHQ-9 Billing: Yes ([id number]) Assessment & Plan Assessment & Plan (1) Clogged ear: Code(s): H93.8X9 - Other specified disorders of ear, unspecified ear Category: Medical Plan: Bilateral ears were cleaned using a lighted curette. Bilateral ear canals were filled with dry skin and wax. This was successfully removed using lighted curette patient tolerated the procedure well and TM was visualized as intact with well aerated middle ear spaces without perforation or retraction. Plan to continue to use Dermotic drops as needed for dry skin. Plan This note was constructed using voice recognition software. While every effort has been made to ensure accuracy and substance abuse specialist, still areas may have been included sometimes these areas may affect the content or meeting of the given symptoms. Total time spent caring for the patient today was 20 minutes. This includes time spent before the visit reviewing the chart, time spent during the visit, and time spent after the visit and documentation.
[2024-12-10 08:37] VITALS: BP 102/64; PULSE 60; O2SAT 97
--- OUTSIDE RECORDS SUMMARY | 2024-12-10 09:32 | XMS_ITS | Clinical Summary ---
Author Organization [facility] Address [address] [place] [address] Care Team Providers Care Box Storage Worker Name Role Phone Pcp, No Primary Care Provider [phone] Social History Tobacco Use Types Packs/Day Years [...] Adults 18 yrs or above (or HM Modifier)([facility]) 1996 Hepatitis C Virus Infection in Adolescents and Adults: Screening (or Modifier) ([facility]) 1996 SDTX Screening Reminder: Annually for all adults ([facility]) 1996 Tobacco Smoking Cessation: i n Adults excluding Women: Behavioral and Pharmacotherapy Interventions ([facility]) 1996 Cervical Cancer Screenin-65 yrs of age (or Modifier) 09/19/1999 Cervical Cancer Screening: P ap every 3 yrs pts age 21-65 09/19/1999 Cervical Cancer: Pap Screeni ng with Modifier timing ([facility]) 09/19/1999 Cervical Cancer: hrHPV alone or with cotesting Pap for Pts 30-65yrs screening every 5yrs ([facility]) 09/19/1999 Colorectal Cancer Screening 45 -75 Yrs (or HM Modifier) 09/19/2023 Colorectal Cancer: FLEXIBLE SIGMOIDOSCOPY Screening every 5 yrs 09/19/2023 Colorectal Cancer: Fecal Immunochemical Test (FIT) Annually [facility] 09/19/2023 Colorectal Cancer: High-sensitivity gFOBT Screening Annually [facility] 09/19/2023 Colorectal Cancer: Stool Cologuard Screening every 3 yrs 09/19/2023 Colorectal Cancer:CT Colonography Screening every 5 yrs 09/19/2023 Flu Vaccination: Yearly for ages 18mos through 64 years (or Modifier)([facility]) 11/01/2024 Zoster/Shingles Vaccine Seri es Screening: Adults aged 18+ yrs (or HM Modifiers)([facility]) (1 of 2) 2028 DTaP/Tdap/Td Vaccines ([facility]) (3 - Td or Tdap) 02/12/2029 02/12/2019, 01/15/2009 Pneumococcal Vaccination Screening: Pts 0-19 & 19-49 yrs of age ([facility]) Aged Out No longer eligible based on patient's age to complete this topic Medical Devices Not on file Care Teams Box Storage Worker Relationship Specialty Start Date End Date Pcp, No PCP - General Family Medicine 08/23/21
--- OUTSIDE RECORDS SUMMARY | 2024-12-10 09:32 | XMS_ITS | Clinical Summary ---
Author Organization [facility] Address [address] [place] [address] Care Team Providers Care Psychiatric Tech Name Role Phone Maame Fried MD Primary Care Provider Allergies Active Allergy Reactions Criticality Noted Date [...] 2018 Colon Cancer Screening 09/19/2023 Influenza (Seasonal) 11/01/2024 01/03/2017, 01/06/2015, 01/06/2015, Additional history exists CoVid-19 Vaccine (3 - 2024- season) 2024 08/20/2020, 07/23/2020 Tetanus Diphtheria and Pertussis Vaccines [...] patient's age to complete this topic Insurance [facility] REFERRAL [address] Care Teams Psychiatric Tech Relationship Specialty Start Date End Date Maame Fried MD [address] [facility] [place] [address] PCP - General 04/28/22
--- OUTSIDE RECORDS SUMMARY | 2024-12-10 09:32 | XMS_ITS | Clinical Summary ---
Author Organization [facility] ([facility]) Address [address] [id number] Care Team Providers Care Gearman Name Role Phone Unavailable Primary Care Provider [...] 09/19/2023 Colonoscopy 09/19/2023 Colorectal Cancer Screening 09/19/2023 Full Lipid Panel Testing 10/15/2024 10/16/2019 Influenza Vaccine (#1) 2024 7, 01/06/2015, 01/06/2015, Additional history exists COVID-19 Vaccine (3 - 2024- season) 2024 08/20/2020, 07/23/2020 Shingrix Vaccine (1 of 2) 2028 DTAP/TDAP/TD [...] patient's age to complete this topic Insurance [facility]
--- OUTSIDE RECORDS SUMMARY | 2024-12-10 09:32 | XMS_ITS | Clinical Summary ---
Author Organization [facility] Address [address] [place] [address] Phone Care Team Providers Care Volunteer Patient Representative Name Role Phone Unknown, Unknown Primary Care [...] SMOKELESS TOBACCO SCREENING 09/19/1991 HIV ONE-TIME SCREENING (18-65 YEARS) 1996 PNEUMOCOCCAL VACCINES (0-49 years) (1 of 2 - PCV) 1997 PAP SMEAR 09/28/2004 09/28/2001 MAMMOGRAM 10/22/2022 10/22/2020, 0708/2019, 12/19/2018 COLOGUARD 09/19/2023 COLONOSCOPY 09/19/2023 COLORECTAL CANCER SCREENING 09/19/2023 FIT TEST 09/19/2023 FOBT 09/19/2023 SIGMOIDOSCOPY 09/19/2023 VIRTUAL COLONOSCOPY 09/19/2023 COVID-19 VACCINE ( season) 2023 08/20/2020, 07/23/2020 INFLUENZA VACCINE (#1) 2024 7, 01/06/2015, 12/27/2013, Additional history exists Adult Td,Tdap Booster 02/12/2029 02/12/2019, 009 HEPATITIS [...] Smear (09/28/2001 12:00 AM EDT) 09/28/2001 Narrative [facility] - 10/29/2001 2:44 PM EDT Accession Number: [id number] Report Status: Final Type: Cytology Cytology Report: [id number] DATE TAKEN: SEP 02 ACCESSIONED ON: OCT 02 at 11:15 CLINICAL DATA: QUESTION EXPOSURE TO KATRINA Menstrual Status: {None Provided} Date of last Menstrual Period: 09/20/01 FINAL DIAGNOSIS CERVIX (PREP) (CX(PREP)): SATISFACTORY FOR EVALUATION. WITHIN NORMAL LIMITS. SQUAMOUS METAPLASIA. Diagnosis by: LAUREN Mayer(ASCP) Signed On: OCT 02 Reviewer: LAUREN Ramírez(ASCP) SOURCE CARE UNIT: [facility] REPORTS TO: Nita Mckeon M.D. Specimen: CX(PREP) Direct Smears Received: 1 us Conversion Provider Not In Sys CYTOLOGY ORDERABL ES Final Result [facility] [address] [place] [address], [facility] from Last 3 Months or Most Recently Relevant to Health Maintenance Insurance O POS EPO [facility] [place] [address] [place] [id number] POS EPO [facility] O POS [facility]PO [facility] O POS EPO [facility] O POS EPO [facility] POS EPO [address] [place] [address] POS EPO [facility] POS EPO [facility] POS EPO [facility] [place] [address] [place] [address] Spring [facility] DIRECT Care Teams Volunteer Patient Representative Relationship Specialty Start Date End Date Unknown, Unknown, PCP - General 08/28/19 Additional Source Comments The information contained in this document represents components of the legal health record. It is not the complete legal health record.[facility]
--- OUTSIDE RECORDS SUMMARY | 2024-12-10 09:32 | XMS_ITS | Encounter Summary ---
Author Organization [facility] r Address [address] [place] [address] Phone Care Team Providers Care Trial Consultant Name Role Phone Maame Sawyer MD Unavailable [phone] Reason for Visit * Reason Comments Med Change Request Encounter Details Date Type Department Care Team (Late st Contact Info) Description 03/20/2023 Refill [facility] [address] [place] [address] Radha Burns PA-C [address] [place], [place] [phone] Acute nasopharyngitis Social History Tobacco Use Types [...] cold) documented in this encounter Care Teams Trial Consultant Relationship Specialty Start Date End Date Maame Sawyer MD [address] [place] [address] PCP - Insurance 08/19/22 documented as of this encounter
--- OUTSIDE RECORDS SUMMARY | 2024-12-10 09:32 | XMS_ITS | Clinical Summary ---
Author Organization [facility] r Address [address] [place] [address] Phone Care Team Providers Care Pipe Layer Helper Name Role Phone Maame Sawyer MD Unavailable [phone] Allergies Active Allergy Reactions Criticality Noted [...] (post-traumatic stress disorder) 07/31/2013 Bipolar 2 disorder ([facility]) 05/10/2012 Overview (08/26/2022): Was in a light study at [place] in 2009. Assessment & Plan (08/28/2020 4:39 [...] areas of likely mod dysplasia. Refer to perfect binder setter Pt opts for expectant management, repeat colpo 10/13 with Parking Analyst 09/27/12 Colpo CBX acute and chronic cervicitis [...] Cancer Screening 09/19/2023 FOBT 09/19/2023 Sigmoidoscopy 09/19/2023 LIPID PANEL 10/15/2024 10/16/2019 COVID-19 Vaccine (3 - season) 2024 08/20/2020, 07/23/2020 INFLUENZA VACCINE (#1) 2024 , 04/10/2021, 01/03/2017, [...] is most likely related to hormonal fluctuations, eqv-toqszwpzdjl-us right diagnostic mammography right breast ultrasound would [...] Recently Relevant to Health Maintenance Care Teams Pipe Layer Helper Relationship Specialty Start Date End Date Maame Sawyer MD [address] [place] [id number] PCP - Insurance 08/19/22
--- OUTSIDE RECORDS SUMMARY | 2024-12-10 09:32 | XMS_ITS | Referral Summary ---
Author Organization [facility] r Address [address] [place] [address] Phone Care Team Providers Care Senior Sustainability Consultant Name Role Phone Maame Sawyer MD Unavailable [phone] Allergies Active Allergy Reactions Criticality Noted [...] (post-traumatic stress disorder) 07/31/2013 Bipolar 2 disorder ([facility]) 05/10/2012 Overview (08/26/2022): Was in a light study at [place] in 2009. Assessment & Plan (08/28/2020 4:39 [...] areas of likely mod dysplasia. Refer to cathode ray tube assembler Pt opts for expectant management, repeat colpo 10/13 with Hogshead Roller 09/27/12 Colpo CBX acute and chronic cervicitis [...] is most likely related to hormonal fluctuations, lmt-wdiaazfstop-ca right diagnostic mammography right breast ultrasound would [...] Recently Relevant to Health Maintenance Care Teams Senior Sustainability Consultant Relationship Specialty Start Date End Date Maame Sawyer MD [address] [place] [address] PCP - Insurance 08/19/22
--- OUTSIDE RECORDS SUMMARY | 2024-12-10 09:32 | XMS_ITS | Encounter Summary ---
Author Organization [facility] r Address [address] [place] [address] Phone Care Team Providers Care Business Rules Developer Name Role Phone Maame Sawyer MD Unavailable [phone] Encounter Details Date Type Department Care Team (Late st Contact Info) Description 01/27/2023 Orders Only [facility] [address] [place] [address] Radha Burns PA-C [address] [place] [address] Acute nasopharyngitis Social History Tobacco Use Types [...] AL ORDERABLES Final Result Performing Organization Address City/[facility]/ZIP Co de Phone Number [facility] CLIA [id number] [address] [place] [address], * *STAT - Rapid Screen For Group A Strep Antigen (01/27/2023 10:27 AM EDT) Specimen Description THROAT [facility] Results NEGATIVE FOR THE PRESENCE OF GROUP A STREPTOCOCCAL ANTIGEN. PLEASE NOTE: A NEGATIVE RAPID STREPTOCOCCAL ANTIGEN TEST DOES NOT RULE OUT THE POSSIBILITY OF STREPTOCOCCAL INFECTION. PLEASE SEE THROAT CULTURE RESULTS. 01/27/2023 10:29 AM EDT [facility] SPECIMEN FROM THROAT / Unknown 01/27/2023 10:27 AM EDT 01/27/2023 10:28 AM EDT us Radha Burns PA-C MICROBIOLOGY - GENER AL ORDERABLES Final Result Performing Organization Address City/[facility]/ZIP Co de Phone Number [facility] CLIA#[id number] [address] [place] [address] documented in this encounter Visit Diagnoses Diagnosis Acute nasopharyngitis Acute nasopharyngitis (common cold) documented in this encounter Additional Health Concerns Infection Onset Date Last Indicated Resolved Time COVID-19 Rule Out 01/27/2023 01/27/2023 01/27/2023 8:43 PM EDT documented as of this encounter Care Teams Business Rules Developer Relationship Specialty Start Date End Date Maame Sawyer MD [address] [place] [address] PCP - Insurance 08/19/22 documented as of this encounter
== END 2024-12-10 09:15 | disposition home or self-care (01) ==
LOC: HO.HMCH 08:30
DX: H93.8X3 Other specified disorders of ear, bilateral (principal); H61.23 Impacted cerumen, bilateral

== ENCOUNTER 2024-12-10 10:59 | Outpatient (RCR) | payer OTHER, SELFPAY ==
--- NOTE | 2024-12-10 13:40 | MHC.PT.DC ---
[facility] [place] Office [place] Office [place] Office [address] [place] 140 [facility] [phone] F: [phone] F: [phone] F: [phone] F: [phone] Physical Therapy Discharge Report Diagnosis: R hip pain Date of Surgery: Date of Evaluation: 10/31/24 Date of Discharge: 12/10/24 Treatments to Date: 7 Cancellations to Date: 1 No Shows to Date: Discharge Status: Achieved Goals Improved Function Independent with HEP Discharge Summary: Liz has been an active and motivated participant in her therapy in the clinic with inconsistent home program compliance who has met most her therapeutic goals, is improved of her condition, and is in agreement with DC today. Electronically signed by: Vijay Quinones PT. Please sign and return to therapist. Thank you for your referral.
== END 2024-12-10 13:39 | disposition home or self-care (01) ==
LOC: HO.PT 10:59
DX: M25.551 Pain in right hip (principal)
CPT/HCPCS: 97110; 97161; 97530

== ENCOUNTER 2025-02-10 10:51 | Outpatient (AMB) | payer OTHER, SELFPAY ==
--- NOTE | 2025-02-10 10:55 | A.OFFVIS_ITS ---
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 Clip Bolter And Wrapper Required: No Fitter Mechanic: Fitter Mechanic Present Allergies latex Allergy (Mild, Verified 02/10/25 11:04) Anaphylaxis Sulfa (Sulfonamide Antibiotics) Allergy (Mild, Verified 02/10/25 11:04) Hives Medication List - Last Reconciled 02/10/25 by Jacki Ruiz LPN cholecalciferol (vitamin D3) 25 mcg PO DAILY epinephrine (EpiPen 2-Duy) 0.3 mg (0.3 mL) IM ONCE PRN escitalopram oxalate 5 mg PO DAILY 90 days estradiol 1.25 gram/actuation (EstroGel) 1.25 grams transdermal DAILY fluocinolone acetonide oil 0.01% (DermOtic Oil) 5 drps otic (ears) BID 7 days trazodone 50 mg PO BEDTIME PRN triamcinolone acetonide 0.1% 1 appl topical DAILY Is last menstrual period known: Yes Last menstrual period: 01/08/25 Post menopausal: No Patient : No Do you need a note to return to daycare/school/sports/work: No HPI HPI RISK CONTROL SPECIALIST annual exam: Details: 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 She feels she woke up with a fever today and is considering going to the emergency room for evaluation she was in a float type experience last evening and wonders if she got exposed to something like legionnaires disease. She has double masking today. She has some lesions on her face that she says she has awaiting evaluation for lupus on she sees a operator supply who is working with this she also is having some issue with her leg.. Her periods are more or less regular she is open to testing for STIs her partner is born female non binary but her/theyre is other partner is in town so she just wants to get checked. She does often have some vaginal itching and wonders about BV though she thought she had it and then it got better. [facility] Medical History Subacute cutaneous lupus erythematosus Anxiety Bipolar disorder IBS (irritable bowel syndrome) Vitamin A deficiency Depression Surgical History Hx of wisdom tooth extraction Hx of dilation and curettage History of colposcopy Family History Father Colon cancer Cancer of kidney Maternal Grandfather Colon cancer Social History Household Members Other:: I am in between houses, staying with friends Housing: Apartment Are you a primary child care sitter to a significant other at home: No Do you presently have visiting nurse or other home services: No Alcohol intake: never Patient Tobacco Use Status: Never used Tobacco e-Cigarette/Vaping Use: Never Used Second Hand Smoke Exposure: No service: No Current occupational status: unemployed and student Current occupation: [employer] Cognitive needs: No Hearing needs: No Vision needs: Yes Female Reproductive History Menstrual Age of Menarche: 10 Duration of menses: 3-5 days Date of last menstrual period: 01/08/25 control method: none Total pregnancies: 0 Date of last pap smear: 06/28/22 (sat /NIL/ND) History of abnormal pap smear: Yes History of STI: Yes Date of Mammogram: 02/09/24 History of abnormal mammogram: Yes Physical Exam Vital Signs: Last Vital Signs BP 110/64 02/10/25 11:00 BMI result Body Mass Index 26.2 Const General: healthy appearing, comfortable, no acute distress, well developed and alert Nutritional Appearance: average body habitus Orientation/consciousness: patient oriented x3 Limitations: no limitations HEENT Head: Yes normocephalic Neck Neck: Yes normal visual inspection Chest Chest palpation & inspection: normal inspection of the chest Breast/axilla inspection: normal inspection of the breasts and normal inspection of the axillae Breast/axilla palpation: normal palpation of the breasts and normal palpation of the axillae Resp Effort & Inspection: normal respiratory effort GI Inspection: Yes normal to inspection, No Abdominal wall edema and No distended Palpation (GI): Soft to palpation and nontender Other: External exam within normal limits. Patient is very tense with exams and tightened up so gentle speculum exam done difficult to see all structures secondary to vaginal tightening but mucosa appeared slightly dry slight white discharge which could be consistent with mild yeast single digit bimanual exam done secondary to vaginal tightening cervix mobile nontender uterus not enlarged nontender but difficult to feel completely secondary to tightening no adnexal enlargement very tight musculature. General: Yes bladder normal to palpation External Female Exam: normal external appearance and normal appearance of the urethra Speculum Exam - Vagina: normal appearance of the vagina, normal palpation and normal vaginal discharge Speculum Exam - Cervix: normal appearance of the cervix, normal palpation and nontender Bimanual exam- vagina & uterus: normal bimanual exam, normal palpation, uterine size normal, bladder normal to palpation, consistency normal, normal palpation, uterine mobility normal, uterine shape normal, No Cervical tenderness present, non-tender and no cervical motion tenderness Bimanual Exam- Adnexa, other: normal adnexae, no masses, normal and No adnexal tenderness Neuro General: patient oriented x3 Results Reviewed Results Reviewed: Name: Liz Sosa Age/Sex: 41/F Attending: Sandrine Sparks CNM : 1980 Submitted by: Sandrine Sparks CNM Copies to: Molly Kline MR #: [id number] Status: DEP REF Collected: 06/28/22 [facility] Received: 06/28/22 Interpretation Satisfactory for evaluation. Negative for intraepithelial lesion or malignancy. HPV mRNA E6/E7: NOT DETECTED This assay detects E6/E7 viral messenger RNA (mRNA) from 14 high-risk HPV types (16, 18, 31, 33, 35, 39, 45, 51, 52, 56, 58, 59, 66, 68) HPV testing performed by [facility], [place], [place]. See reference laboratory portion of the EMR for entire report. Clinical Information LMP: 06/21/22 Previous PAP test: 05/18/21, WNL Material Received ThinPrep-Cervical Copies To Sandrine Sparks CNM [address] [place] [address] [address] [place] [address] Molly Kline [address] [place] [address] Electronically Signed By: Tonya Sales 07/04/22 1913 The Pap Test is a screening procedure with the inherent possibility of both false negative and false positive results. Results should be interpreted in the context of historic and current clinical findings. Reliability of the Pap Test is enhanced by performing the test on a regular repetitive basis. Patient: Liz Sosa Age/Sex: 41/F MR#: [id number] Page 1 of 1 Patient: Liz Sosa MR#: [id number] : 1980 Acct:[id number] Age/Sex: 41 / F ADM Date: 08/12/22 Loc: [facility] Attending Dr: Sandrine Sparks CNM Ordering Physician: Sandrine Sparks CNM Results: 1Negative Date of Service: 08/12/22 Follow Up: 1 Year From Original Mammogram Procedure(s): MM tomosynthesis screening BI Accession Number(s): [id number] cc: Sandrine Sparks CNM~ EXAMINATION: MM SCREENING DIGITAL BREAST TOMOSYNTHESIS, BILATERAL CLINICAL INFORMATION: Screening. Asymptomatic. The lifetime risk of breast cancer based on the Tyrer-Cuzick Model is 16.8%. COMPARISON: Mammography: October 16, 2019 and December 19, 2018 TECHNIQUE: Digital breast tomosynthesis is performed in both the craniocaudal and mediolateral oblique views along with computer-aided detection (CAD). Synthesized 2D images are generated from the tomosynthesis. FINDINGS: The breasts are extremely dense, which lowers the sensitivity of mammography (ACR BI-RADS breast composition Category d). There are no significant masses, abnormal calcifications, or other abnormalities. MM/MM tomosynthesis screening BI IMPRESSION: No significant changes from prior exam. ASSESSMENT: BI-RADS 1: Negative RECOMMENDATION: Routine annual mammography screening. This patient's information was entered into a reminder system with a target due date for their next mammogram. Dictated By: Kush Loaiza MD Signed By: <Electronically signed by Kush Loaiza MD in OV> 08/19/22 1305 DD/ 1000 TD/TT: School Services Officer: AZIZA Assessment & Plan Assessment & Plan (1) Breast cancer screening: Code(s): Z12.39 - Encounter for other screening for malignant neoplasm of breast Category: Medical (2) Hx of abnormal cervical Pap smear: Comment: 05/17/2021 Pap equals negative, negative HPV; 06/28/2022 Pap is negative with negative HPV. reviewed asccp guidelines and hpv. pt desires to complete hpv vaccine series. Code(s): Z87.42 - Personal history of other diseases of the female genital tract Category: Medical (3) Vaginal dryness: Code(s): N89.8 - Other specified noninflammatory disorders of vagina Category: Medical (4) Vaginal itching: Code(s): N89.8 - Other specified noninflammatory disorders of vagina Category: Medical (5) Vaginismus: Code(s): N94.2 - Vaginismus Category: Medical (6) Screen for sexually transmitted diseases: Code(s): Z11.3 - Encounter for screening for infections with a predominantly sexual mode of transmission Category: Medical Plan -----Discussed in this visit the following: healthy balanced diet, regular and consistent exercise, getting recommended health screens, doing the best she can for her particular health concerns, kegel exercises, pap smear screening and followup recommendations, mammography screening and SBE, normal changes in c ycles in her life stage--- . She did not get a mammogram last year I told her that if I did not see an active order in the system I would place an order so I have. She is following up with her primary care provider and also dermatology to see if she really has lupus she said that she would need a skin biopsy on her face to really see if that is the diagnosis so there is no treatment being discussed until that gets figured out. Discussed her vaginal symptoms and that it may very well be mild yeast. I am prescribing Monistat 7 cream which I have ordered for her in the past with refills that she can use as she needs to for these symptoms. Also discussed that some of this maybe related to being in her tita menopausal years. She had said that she felt feverish but did not actually have a measured fever. Since she is not having in need major difficulty suggested checking in with the urgent care rather than emergency room but she will need to make her own decision based on her symptoms. Orders: Orders CT NG by PCR Vag/Cerv Today N89.8 - Other specified noninflammatory disorders of vagina Bacterial Vaginosis Panel Today N89.8 - Other specified noninflammatory disorders of vagina MM tomosynthesis screening BI Today Z12.31 - Encounter for screening mammogram for malignant neoplasm of breast, Z12.39 - Encounter for other screening for malignant neoplasm of breast Medications: Refilled miconazole nitrate 2% (Miconazole-7) for vag itching/ symptoms of yeast 1 appful vaginal BEDTIME 45 grams 2RF 7 days Coding Level of Care Code Est Pt Prev Care 40-64y(98033) Diagnoses Breast cancer screening Z12.39 Hx of abnormal cervical Pap smear Z87.42 Vaginal dryness N89.8 Vaginal itching N89.8 Vaginismus N94.2 Screen for sexually transmitted diseases Z11.3
[2025-02-10 11:00] VITALS: BP 110/64; BMI 26.2
--- OUTSIDE RECORDS SUMMARY | 2025-02-10 12:56 | XMS_ITS | Clinical Summary ---
Author Organization [facility] r Address [address] [place] [address] Phone Care Team Providers Care Batch Records Clerk Name Role Phone Maame Sawyer MD Unavailable [phone] Allergies Active Allergy Reactions Criticality Noted [...] (post-traumatic stress disorder) 07/31/2013 Bipolar 2 disorder ([facility]) 05/10/2012 Overview (08/26/2022): Was in a light study at [place] in 2009. Assessment & Plan (08/28/2020 4:39 [...] areas of likely mod dysplasia. Refer to business rules developer Pt opts for expectant management, repeat colpo 10/13 with Contact Acid Plant Operator Helper 09/27/12 Colpo CBX acute and chronic cervicitis [...] 1993 Cervical Cancer Screening 09/19/1999 Colposcopy 09/19/1999 LEEP 09/19/1999 PAP SMEAR 09/19/1999 Pap + HPV 09/19/1999 MAMMOGRAM 10/22/2021 10/22/2020 Colonoscopy FOBT- Positive 09/19/2023 Colonoscopy 09/19/2023 Colorectal Cancer Screening 09/19/2023 FOBT 09/19/2023 Sigmoidoscopy 09/19/2023 LIPID PANEL 10/15/2024 10/16/2019 COVID-19 Vaccine (3 - 2024- season) 2024 08/20/2020, 07/23/2020 INFLUENZA VACCINE (#1) [...] is most likely related to hormonal fluctuations, [id number] right diagnostic mammography right breast ultrasound would [...] Recently Relevant to Health Maintenance Care Teams Batch Records Clerk Relationship Specialty Start Date End Date Maame Sawyer MD [address] [place] [address] PCP - Insurance 08/19/22
--- OUTSIDE RECORDS SUMMARY | 2025-02-10 12:56 | XMS_ITS | Encounter Summary ---
Author Organization [facility] r Address [address] [place] [address] Phone Care Team Providers Care Iphone Developer Name Role Phone Maame Sawyer MD Unavailable [phone] Reason for Visit * Reason Comments Med Change Request Encounter Details Date Type Department Care Team (Late st Contact Info) Description 03/20/2023 Refill [facility] [address] [place] [address] Radha Burns PA-C [address] [place], [place] [id number] Acute nasopharyngitis Social History Tobacco Use Types [...] cold) documented in this encounter Care Teams Iphone Developer Relationship Specialty Start Date End Date Maame Sawyer MD [address] [place] [address] PCP - Insurance 08/19/22 documented as of this encounter
--- OUTSIDE RECORDS SUMMARY | 2025-02-10 12:56 | XMS_ITS | Clinical Summary ---
Author Organization [facility] Address [address] [place] [address] Phone Care Team Providers Care Golf Starter And Ranger Name Role Phone Unknown, Unknown Primary Care [...] 09/19/2023 VIRTUAL COLONOSCOPY 09/19/2023 INFLUENZA VACCINE (#1) 2024 7, 01/06/2015, 12/27/2013, Additional history exists COVID-19 VACCINE ( - 2024- season) 2024 08/20/2020, 07/23/2020 Adult Td,Tdap Booster 02/12/2029 02/12/2019, [...] Smear (09/28/2001 12:00 AM EDT) 09/28/2001 Narrative [facility] - 10/29/2001 2:44 PM EDT Accession Number: [id number] Report Status: Final Type: Cytology Cytology Report: [id number] DATE TAKEN: SEP 02 ACCESSIONED ON: OCT 02 at 11:15 CLINICAL DATA: QUESTION EXPOSURE TO KATRINA Menstrual Status: {None Provided} Date of last Menstrual Period: 09/20/01 FINAL DIAGNOSIS CERVIX (PREP) (CX(PREP)): SATISFACTORY FOR EVALUATION. WITHIN NORMAL LIMITS. SQUAMOUS METAPLASIA. Diagnosis by: LAUREN Mayer(ASCP) Signed On: OCT 02 Reviewer: LAUREN Ramírez(ASCP) [facility]: [facility] REPORTS TO: Nita Mckeon M.D. Specimen: CX(PREP) Direct Smears Received: 1 us Conversion Provider Not In Sys CYTOLOGY ORDERABL ES Final Result [facility] [address] [place] [address], [facility] from Last 3 Months or Most Recently Relevant to Health Maintenance Insurance O POS EPO [facility] [address] [place] [address]O POS EPO [facility] A[facility] O POS EPO [facility] O POS EPO [facility] O POS EPO [facility] POS [facility]PO [facility] [place] [address] POS EPO [facility] POS EPO [facility] POS EPO [facility] [place] [address] [employer] [facility] DIRECT Care Teams Golf Starter And Ranger Relationship Specialty Start Date End Date Unknown, Unknown, PCP - General 08/28/19 Additional Source Comments The information contained in this document represents components of the legal health record. It is not the complete legal health record.[facility]
--- OUTSIDE RECORDS SUMMARY | 2025-02-10 12:56 | XMS_ITS | Clinical Summary ---
Author Organization [facility] (historical information prior to 01/04/2025 only) Address [address] [place] [address] Care Team Providers Care Candy Spreader Helper Name Role Phone Maame Fried MD Primary Care Provider [phone] Allergies Active Allergy Reactions Criticality Noted Date [...] patient's age to complete this topic [place] [address] [place] [address] [place] [address] [place] [address] [place] [address] [place] [address] [place] [address] [place] [address] Valentina F[place] Care Teams Candy Spreader Helper Relationship Specialty Start Date End Date Maame Fried MD [address] [facility] [address] [place] [id number] PCP - General 04/28/22
--- OUTSIDE RECORDS SUMMARY | 2025-02-10 12:56 | XMS_ITS | Encounter Summary ---
Author Organization [facility] r Address [address] [place] [address] Phone Care Team Providers Care Avionics Safety Inspector Name Role Phone Maame Sawyer MD Unavailable [phone] Encounter Details Date Type Department Care Team (Late st Contact Info) Description 01/27/2023 Orders Only [facility] [address] [place] [address] Radha Burns PA-C [address] [place] [address] Acute nasopharyngitis Social History Tobacco Use Types [...] AL ORDERABLES Final Result Performing Organization Address City/[facility]/ZIP Co de Phone Number [facility] CLIA [id number] [address] [place] [address], * *STAT - Rapid Screen For Group A Strep Antigen (01/27/2023 10:27 AM EDT) Specimen Description THROAT [facility] Results NEGATIVE FOR THE PRESENCE OF GROUP A STREPTOCOCCAL ANTIGEN. PLEASE NOTE: A NEGATIVE RAPID STREPTOCOCCAL ANTIGEN TEST DOES NOT RULE OUT THE POSSIBILITY OF STREPTOCOCCAL INFECTION. PLEASE SEE THROAT CULTURE RESULTS. 01/27/2023 10:29 AM EDT [facility] SPECIMEN FROM THROAT / Unknown 01/27/2023 10:27 AM EDT 01/27/2023 10:28 AM EDT us Radha Burns PA-C MICROBIOLOGY - GENER AL ORDERABLES Final Result Performing Organization Address City/[facility]/ZIP Co de Phone Number [facility] CLIA#[id number] [address] [place] [address] documented in this encounter Visit Diagnoses Diagnosis Acute nasopharyngitis Acute nasopharyngitis (common cold) documented in this encounter Additional Health Concerns Infection Onset Date Last Indicated Resolved Time COVID-19 Rule Out 01/27/2023 01/27/2023 01/27/2023 8:43 PM EDT documented as of this encounter Care Teams Avionics Safety Inspector Relationship Specialty Start Date End Date Maame Sawyer MD [address] [place] [address] PCP - Insurance 08/19/22 documented as of this encounter
--- OUTSIDE RECORDS SUMMARY | 2025-02-10 12:56 | XMS_ITS | Clinical Summary ---
Author Organization [facility] lin Address [address] [place] [address] Care Team Providers Care Investigator Utility Bill Complaints Name Role Phone Pcp, Lucy Primary Care Provider [phone] Social History Tobacco Use Types Packs/Day Years Used Date Smoking Tobacco: Never Assessed Comments Unknown Sex and Gender Information Value Date Recorded Sex Assigned at Not on file Legal Sex Unknown 02/24/2021 11:17 AM EST Gender Identity Not on file Sexual Orientation Not on file Plan of Treatment Not on file Medical Devices Not on file Care Teams Investigator Utility Bill Complaints Relationship Specialty Start Date End Date Lucy Livingston PCP - General Family Medicine 08/23/21
== END 2025-02-10 16:15 | disposition home or self-care (01) ==
LOC: HO.HWSM 10:51
PROVIDERS: Visit Provider Advanced Practice Midwife
DX: Z01.419 Encounter for gynecological examination (general) (routine) without abnormal findings (principal); N94.2 Vaginismus; N89.8 Other specified noninflammatory disorders of vagina; Z12.39 Encounter for other screening for malignant neoplasm of breast; Z87.42 Personal history of other diseases of the female genital tract; Z11.3 Encounter for screening for infections with a predominantly sexual mode of transmission
CPT/HCPCS: 99396; 99459

== ENCOUNTER 2025-02-10 10:51 | Outpatient (REF) | payer OTHER, SELFPAY ==
[2025-02-10 18:02] LABS: Bacterial Vaginosis PCR NEGATIVE (Negative); Candida Group PCR NOT DETECTED (Not Detect); Candida glab krusei PCR NOT DETECTED (Not Detect); Trichomonas vaginalis PCR NOT DETECTED (Not Detect)
[2025-02-10 18:29] LABS: CT PCR NOT DETECTED (Not Detect.); NG PCR NOT DETECTED (Not Detect.)
== END 2025-02-10 10:52 | disposition home or self-care (01) ==
LOC: HO.LNP 10:51
PROVIDERS: Visit Provider Advanced Practice Midwife
DX: Z12.31 Encounter for screening mammogram for malignant neoplasm of breast (principal); N94.2 Vaginismus; N89.8 Other specified noninflammatory disorders of vagina; Z20.2 Contact with and (suspected) exposure to infections with a predominantly sexual mode of transmission; Z87.42 Personal history of other diseases of the female genital tract
CPT/HCPCS: 81515; 87491; 87591; 99396